=== PATIENT | female | born 1955 | race African-American/Black ===

== ENCOUNTER 2020-04-30 14:49 | Outpatient (REF) | payer OTHER, SELFPAY ==
--- NOTE | 2020-04-30 15:02 | XR_ITS ---
EXAMINATION: XR KNEE, LEFT CLINICAL INFORMATION: Pain in left knee COMPARISON: None TECHNIQUE: Four views of the left knee. FINDINGS: There is chondrocalcinosis of the medial and lateral meniscus. No bone erosions. Mild joint narrowing of the medial femoral tibial joint. There are no bone spurs. There is no joint effusion. XR/XR knee LT 4V IMPRESSION: Chondrocalcinosis of the medial and lateral meniscus. Mild joint narrowing of the medial femoral tibial joint.
--- NOTE | 2020-04-30 15:11 | US_ITS ---
EXAMINATION: US VENOUS ULTRASOUND WITH DOPPLER LOWER EXTREMITY, LEFT CLINICAL INFORMATION: Pain in lower left leg COMPARISON: None TECHNIQUE: Ultrasound of the deep veins is performed from the hip to the calf with compression sonography and color and pulse Doppler assessment. Spectral analysis with color-flow imaging is performed. FINDINGS: There is normal venous compression and respiratory variation and augmented flow. The visualized common femoral vein, superficial femoral vein, profunda femoral vein, popliteal vein, and the trifurcation region shows no evidence of deep venous thrombosis. There is a popliteal cyst measuring 5.8 x 2.1 x 3.8 cm. If the patient's symptoms persist, followup ultrasound in 5 days 7 days might be of value to exclude proximal propagation from a non-visualized calf vein. US/US venous duplex LE IMPRESSION: 1. No DVT demonstrated in the left lower extremity. 2. Popliteal fossa cyst.
== END 2020-04-30 14:50 | disposition home or self-care (01) ==
LOC: HO.HMGCX 14:49
PROVIDERS: PCP Internal Medicine; Visit Provider Nurse Practitioner Family
DX: M25.562 Pain in left knee (principal)
CPT/HCPCS: 73564; 93971

== ENCOUNTER → 2020-05-13 12:32 | Outpatient (BNVA) | payer OTHER, SELFPAY | PROVIDERS: PCP Internal Medicine; Referring Provider Internal Medicine; Visit Provider Orthopaedic Surgery | DX: M11.262 Other chondrocalcinosis, left knee (principal) | CPT/HCPCS: 99202 ==

== ENCOUNTER 2020-07-21 10:03 | Outpatient (REF) | payer OTHER, SELFPAY ==
--- NOTE | 2020-07-21 10:09 | XR_ITS ---
EXAMINATION: CR X-RAY FOOT AND ANKLE 3 VIEW RIGHT CLINICAL INFORMATION: Right foot and ankle pain status post injury. COMPARISON: None TECHNIQUE: 3 views each of the right foot and ankle were obtained. FINDINGS: There is no acute fracture or dislocation. Mild first metatarsophalangeal joint space narrowing is seen. The tarsal bones are normally aligned. The ankle joint and mortise are intact. There is generalized mild soft tissue swelling. XR/XR ankle RT 2V IMPRESSION: Generalized mild soft tissue swelling and mild first metatarsophalangeal degenerative joint space narrowing without acute abnormality.
--- NOTE | 2020-07-21 10:09 | XR_ITS ---
EXAMINATION: CR X-RAY FOOT AND ANKLE 3 VIEW RIGHT CLINICAL INFORMATION: Right foot and ankle pain status post injury. COMPARISON: None TECHNIQUE: 3 views each of the right foot and ankle were obtained. FINDINGS: There is no acute fracture or dislocation. Mild first metatarsophalangeal joint space narrowing is seen. The tarsal bones are normally aligned. The ankle joint and mortise are intact. There is generalized mild soft tissue swelling. XR/XR foot RT min 3V IMPRESSION: Generalized mild soft tissue swelling and mild first metatarsophalangeal degenerative joint space narrowing without acute abnormality.
== END 2020-07-21 10:04 | disposition home or self-care (01) ==
LOC: HO.HMGCX 10:03
PROVIDERS: PCP Internal Medicine; Visit Provider Nurse Practitioner Family
DX: S99.911A Unspecified injury of right ankle, initial encounter (principal); S99.921A Unspecified injury of right foot, initial encounter; X58.XXXA Exposure to other specified factors, initial encounter; Y93.9 Activity, unspecified; Y92.9 Unspecified place or not applicable; Y99.9 Unspecified external cause status
CPT/HCPCS: 73600; 73630

== ENCOUNTER 2020-09-26 12:29 | Outpatient (REF) | payer MEDICARE, SELFPAY ==
[2020-09-27 04:18] LABS: SARS COV2 PCR INHOUSE NEGATIVE (Negative)
== END 2020-09-26 12:30 | disposition home or self-care (01) ==
LOC: HO.LAB 12:29
PROVIDERS: Visit Provider Internal Medicine
DX: Z20.822 Contact with and (suspected) exposure to COVID-19 (principal)
CPT/HCPCS: C9803; U0003

== ENCOUNTER 2023-07-06 09:30 | Outpatient (AMB) | payer MEDICARE, SELFPAY ==
--- OUTSIDE RECORDS SUMMARY | 2023-07-06 09:32 | XMS_ITS | Continuity of Care Document ---
Author Name Unknown Organization [facility] As formerly [facility] Address [address] [place] [address] [address] [place] [address]- Care Team Providers Care Sales Merchandise Associate Name Role Phone WilfredoelianeKarma Sun DO Primary Care Nicole valentine Encounter [facility] Date(s): 02/21/23 - 03/23/[address] [place] [address]- Attending Physician: Humphrey Tapia Admitting Physician: AdmtrHumphrey Referring Physician: Admtr, ArDarien Allergies, Adverse Reactions, Alerts Substance Reaction Severity Status codeine vomiting Active Contrast Dye 1 rash Active 1Patient reports with Benadryl administration she can have contrast dye. Immunizations Given and Recorded Vaccine Date Status Refusal Reason influenza virus vaccine, inactivated 04/18/22 Kenny rded influenza virus vaccine, inactivated 03/23/18 Kenny rded influenza virus vaccine, inactivated 04/27/17 Kenny rded influenza virus vaccine, inactivated 04/02/16 Kenny rded influenza virus vaccine, inactivated 03/24/15 Kenny rded influenza virus vaccine, inactivated 04/19/14 Kenny rded [id number] 12y+ bivalent booster vax 04/18/22 Recorded SARS-CoV-2 (COVID-19) mRNA BNT-162b2 vac 06/25/21 Recorded SARS-CoV-2 (COVID-19) mRNA BNT-162b2 vac 11/07/20 Given SARS-CoV-2 (COVID-19) mRNA BNT-162b2 vac 10/17/20 Given zoster vaccine, inactivated 02/07/18 Recorded pneumococcal 13-valent vaccine 04/02/16 Recorded pneumococcal 23-valent vaccine 03/24/15 Recorded Zoster Vaccine Live 04/19/14 Recorded Medications acetaminophen 325 mg oral tablet 975 mg, By Mouth, Every 6 hours, PRN, Refills 0, Maintenance, Pain , Mild, 07/28/22 11:13:00 EST Start Date: 07/28/22 Status: Ordered amLODIPine 10 mg oral tablet 1 tablet = 10 mg, By Mouth, Daily, # 30 tablet, 0 Refills, Maintenance, 07/29/22 18:54:00 EST, Tablet, Partial fill upon patient request if the prescription is for a schedule II opioid drug. Start Date: 07/29/22 Status: Ordered Coloplast bags #04046 Coloplast bags #[id number], See Instructions, # 20 each, Refills 11, Tot. Refills 11, Maintenance, Use as needed for ostomy maintenance. Dx ileostomy Z93.2, 08/23/22 14:43:00 EST, Supply Start Date: 08/23/22 Status: Ordered gabapentin 300 mg oral capsule 300 mg, 1, capsule, By Mouth, Daily at bedtime, Refills 0, Maintenance, 07/20/22 8:52:00 EST, Partial fill upon patient request if the prescription is for a schedule II opioid drug. Start Date: 07/20/22 Status: Ordered Incruse Ellipta 62.5 mcg/inh inhalation powder Inhalation, Every 24 hours, 0 Refills, Maintenance, 06/08/22 13:06:00 EST, Partial fill upon patient request if the prescription is for a schedule II opioid drug. Start Date: 06/08/22 Status: Ordered levothyroxine 0.1 mg oral tablet 1 tablet = 100 mcg, By Mouth, Daily, 0 Refills, Maintenance, 02/24/18 11:52:41 EDT Start Date: 02/24/18 Status: Ordered lisinopril 20 mg oral tablet 20 mg, 1, tablet, By Mouth, Daily, # 30 tablet, Refills 0, Maintenance, 07/29/22 18:55:00 EST Start Date: 07/29/22 Status: Ordered Loperamide 2 mg, By Mouth, 4 times a day, PRN, Refills 0, Maintenance, as needed for loose stool, 02/24/18 11:55:27 EDT Start Date: 02/24/18 Status: Ordered Metoprolol Tartrate 25 mg oral tablet 1 tablet = 25 mg, By Mouth, Daily, # 60 tablet, 0 Refills, Maintenance, 07/29/22 18:54:00 EST, Tablet Start Date: 07/29/22 Status: Ordered omeprazole 40 mg oral enteric coated capsule 1 capsule = 40 mg, By Mouth, Daily, # 30 capsule, 0 Refills, Maintenance, 07/29/22 18:55:00 EST, ECCapsule, Partial fill upon patient request if the prescription is for a schedule II opioid drug. Start Date: 07/29/22 Status: Ordered Oxygen 2 liters, Daily at bedtime, 0 Refills, Maintenance Start Date: 07/31/10 Status: Ordered PARoxetine 10 mg oral tablet 10 mg, 1, tablet, By Mouth, Daily, for total of 50 mg daily, # 30 tablet, Refills 0, Maintenance, 07/29/22 18:53:00 EST Start Date: 07/29/22 Status: Ordered PARoxetine 40 mg oral tablet 40 mg, 1, tablet, By Mouth, Daily, for total of 50 mg daily, # 30 tablet, Refills 0, Maintenance, 07/29/22 18:52:00 EST Start Date: 07/29/22 Status: Ordered ProAir HFA 90 mcg/inh inhalation aerosol 2 puffs, Inhalation, 4 times a day, PRN as needed for wheezing, # 6.7 Gm, 0 Refills, Maintenance, 04/28/20 11:08:00 EST, Aerosol Start Date: 04/28/20 Status: Ordered simvastatin 20 mg oral tablet 20 mg, 1, tablet, By Mouth, Daily at bedtime, # 30 tablet, Refills 0, Maintenance, 07/29/22 19:28:00 EST, Partial fill upon patient request if the prescription is for a schedule II opioid drug. Start Date: 07/29/22 Status: Ordered Tums 500 mg oral tablet, chewable 1,000 mg, 2, tablet, Chew, 3 times a day, PRN, Refills 0, Maintenance, Dyspepsia, 01/22/23 9:15:00 EDT, Partial fill upon patient request if the prescription is for a schedule II opioid drug. Start Date: 01/22/23 Status: Ordered Vitamin D3 1000 intl units oral capsule By Mouth, Daily, 0 Refills, Maintenance Start Date: 07/31/10 Status: Ordered Wixela Inhub 100 mcg-50 mcg inhalation powder 1 inhalation, Inhalation, 2 times a day, rinse mouth and throat after use, 0 Refills, Maintenance, 04/28/20 11:10:00 EST, Powder Start Date: 04/28/20 Status: Ordered Problem List Condition Confirmation Course Effective Dates Status H ealth Status Informant Asthma with COPD Confirmed Active COVID-19 Confirmed Active Current smoker Confirmed Active Depression Confirmed Active FH: Ischemic heart disease Confirmed Active Hemorrhoids Confirmed Active HLD (hyperlipidemia) Confirmed Active HTN (hypertension) Confirmed Active Hypothyroidism Confirmed Active Obese class I Confirmed Active Rectal perforation Confirmed Active Failed back syndrome Confirmed Active Rectal prolapse Confirmed Active Social History Social History Type Response Tobacco Other: Quit 6 months ago. Smoked for 50+ yrs.. Sex Radiology * Event Display: Bone Density, Non- Authored Date: Patient Care team information Care Team Personnel Name: Geetha Jurado RN Position: S RN Member Role: Primary Care Nurse Name: Bruna Joseph RN Position: S RN Member Role: Primary Care Nurse Name: Kristin Sands RN Position: S RN Member Role: Primary Care Nurse Name: Karma High DO Position: [facility] Physician - Primary Care Member Role: PCP Address: Address: [address] [place] [address] Name: Cady Dove RN Position: S RN Member Role: Primary Care Nurse Name: Elena Savage RN Position: [facility] RN Member Role: Primary Care Nurse Name: Lyela Chua RN Position: [facility] RN Member Role: Primary Care Nurse Name: Naya Ocampo RN Position: S RN Member Role: Primary Care Nurse Care Team Related Persons Name: ABE CAST Address: [address] [address] Name: SAUMYA MAX Address: [place] [address]
--- OUTSIDE RECORDS SUMMARY | 2023-07-06 09:32 | XMS_ITS | Continuity of Care Document ---
Author Name Unknown Organization [facility] As [facility] Address [address] [place] [address] [address] [place] [address]- Care Team Providers Care Staff Registered Nurse Name Role Phone Karma High DO Primary Care Nicole valentine Encounter [facility] Date(s): 02/21/23 - 02/28/23 [facility] [address] [place] [address]- Encounter Diagnosis Rectal perforation(Discharge Diagnosis) - 02/21/23 Asthma with COPD(Discharge Diagnosis) - 02/21/23 Attending Physician: Shiva PONCE, Rex Castellon Referring Physician: Karma High DO Allergies, Adverse Reactions, Alerts Substance Reaction Severity [...] influenza virus vaccine, inactivated 04/19/14 Kenny rded [id number] 12y+ bivalent booster vax 04/18/22 Recorded SARS-CoV-2 (COVID-19) mRNA BNT-162b2 vac 06/25/21 Recorded SARS-CoV-2 (COVID-19) mRNA BNT-162b2 vac 11/07/20 Given SARS-CoV-2 (COVID-19) mRNA BNT-162b2 vac 10/17/20 Given zoster vaccine, inactivated 02/07/18 Recorded pneumococcal 13-valent vaccine 04/02/16 Recorded pneumococcal 23-valent vaccine 03/24/15 Recorded Zoster Vaccine Live 10/24/14 Recorded Medications acetaminophen 325 mg oral tablet [...] Start Date: 07/29/22 Status: Ordered Coloplast bags #[id number] Coloplast bags #90690, See Instructions, # 20 each, Refills 11, Tot. Refills 11, Maintenance, Use as needed for ostomy maintenance. Dx ileostomy Z93.2, 08/23/22 14:43:00 EST, Supply Start Date: 08/23/22 Status: Ordered [employer] oral capsule 1 capsule, By Mouth, Daily, for 30 days, # 30 capsule, 0 Refills, Acute 03/17/23 13:03:00 EDT, 02/15/23 13:03:00 EDT, [id number], Partial fill upon patient request if the prescription is for a schedule II opioid drug., 1 capsule By Mo... Start Date: 02/15/23 Stop Date: 03/17/23 Status: Ordered gabapentin 300 mg oral capsule [...] syndrome Confirmed Active Rectal prolapse Confirmed Active Diagnosis Diagnosis Type Effective Dates Health Status Clinical Service Informant Rectal perforation Discharge Diagnosis 02/21/23 Asthma with COPD Discharge Diagnosis 02/21/23 Vital Signs Most recent to oldest [Reference Range]: 1 Height 160 cm (02/21/23 11:45 AM) Weight 77.4 kg (02/21/23 11:45 AM) Pulse Rate [55-90 bpm] 84 bpm (02/21/23 11:45 AM) Body Mass Index [18.5-24.99 kg/m2] 30.23 kg/m2 *>HHI* (02/21/23 11:45 AM) Blood Pressure [90-138/55-84 mm Hg] 110/ 68mm Hg (02/21/23 11:45 AM) Temperature [96.8-100.4 DegF] 97.0 DegF (02/21/23 11:45 AM) Blood pressure sites Arm, right (02/21/23 11:45 AM) Temperature Route Temporal (02/21/23 11:45 AM) Social History Social History Type Response Tobacco Other: Quit 6 months ago. Smoked for 50+ yrs.. Sex Patient Care team information Care Team Personnel Name: Geetha Jurado RN Position: [facility] RN Member Role: Primary Care Nurse Name: Bruna Joseph RN Position: S RN Member Role: Primary Care Nurse Name: Kristin Sands RN Position: S RN Member Role: Primary Care Nurse Name: Karma High DO Position: [facility] Physician - Primary Care Member Role: PCP Address: Address: [address] [place] [address] Name: Cady Dove RN Position: [facility] RN Member Role: Primary Care Nurse Name: Elena Savage RN Position: [facility] RN Member Role: Primary Care Nurse Name: Leyla Chua RN Position: [facility] RN Member Role: Primary Care Nurse Name: Naya Ocampo RN Position: [facility] RN Member Role: Primary Care Nurse Care Team Related Persons Name: ABE CAST Address: [address] [address] Name: SAUMYA MAX Address: [place] [address]
--- OUTSIDE RECORDS SUMMARY | 2023-07-06 09:32 | XMS_ITS | Continuity of Care Document ---
Author Name Unknown Organization [facility] Surgical As formerly [facility] Address [address] [place] [address] [address] [place] [address]- Care Team Providers Care Instructor Of Spanish Name Role Phone WilfredofinaKarma Grant DO Primary Care Nicole valentine Encounter [facility] Date(s): 01/05/23 - 02/04/23 [facility] [address] [place], [place] [address] Allergies, Adverse Reactions, Alerts Substance Reaction Severity [...] influenza virus vaccine, inactivated 04/19/14 Kenny rded [id number] 12y+ bivalent booster vax 04/18/22 Recorded SARS-CoV-2 [...] Start Date: 07/29/22 Status: Ordered Coloplast bags #91508 Coloplast bags #35379, See Instructions, # 20 each, Refills 11, [...] HTN (hypertension) Confirmed Active Hypothyroidism Confirmed Active Rectal perforation Confirmed Active Failed [...] Care Nurse Name: Karma High DO Position: [facility] Physician - Primary Care Member Role: PCP Address: Address: [address] [place] [address] Name: Cady Dove RN Position: S RN Member Role: Primary Care Nurse Name: Elena Savaeg RN Position: S RN Member Role: Primary Care Nurse Name: Leyla Chua RN Position: S RN Member Role: Primary Care Nurse Name: Naya Ocampo RN Position: S RN Member Role: Primary Care Nurse Care Team Related Persons Name: ABE CAST Address: [address] [address] Name: SAUMYA MAX Address: [place] [address]
--- OUTSIDE RECORDS SUMMARY | 2023-07-06 09:32 | XMS_ITS | Continuity of Care Document ---
Author Name Unknown Organization [facility] Address [address] [place] [address] [address] [place] [address]- Care Team Providers Care Merchandise Displayer Name Role Phone Karma High DO Primary Care Nicole valentine Encounter [facility] Date(s): 12/06/22 - 12/13/[address] [place] [address]- Encounter Diagnosis Rectal prolapse(Discharge Diagnosis) - 12/06/22 Rectal perforation(Discharge Diagnosis) - 12/06/22 Asthma with COPD(Discharge Diagnosis) - 12/06/22 Attending Physician: Rex Shannon MD Referring Physician: Karma High DO Allergies, Adverse Reactions, Alerts Substance Reaction Severity Status codeine vomiting Active Contrast Dye rash Active Immunizations Given and Recorded Vaccine Date Status Refusal Reason influenza virus vaccine, inactivated 04/18/22 Kenny rded influenza virus vaccine, inactivated 03/23/18 Kenny rded influenza virus vaccine, inactivated 04/27/17 Kenny rded influenza virus vaccine, inactivated 04/02/16 Kenny rded influenza virus vaccine, inactivated 03/24/15 Kenny rded influenza virus vaccine, inactivated 04/19/14 Kenny rded [id number] 12y+ bivalent booster vax 04/18/22 Recorded SARS-CoV-2 [...] Start Date: 07/29/22 Status: Ordered Coloplast bags #55849 Coloplast bags #[id number], See Instructions, # 20 each, Refills 11, [...] 11:55:27 EDT Start Date: 02/24/18 Status: Ordered loperamide 2 mg oral tablet See Instructions, take 2 tablets by mouth 30 minutes before meals and at bedtime, # 240 tablet, 4 Refills, Maintenance, 11/15/22 7:44:00 EDT, Tablet, [id number], Partial fill upon patient request if the prescription is for a schedule... Start Date: 11/15/22 Status: Ordered Metoprolol Tartrate 25 mg oral tablet 1 tablet = 25 mg, By Mouth, Daily, # 60 tablet, 0 Refills, Maintenance, 07/29/22 18:54:00 EST, Tablet Start Date: 07/29/22 Status: Ordered naproxen 500 mg oral delayed release tablet 1 tablet = 500 mg, By Mouth, 2 times a day, PRN Pain , Moderate, # 180 tablet, 0 Refills, Maintenance, 07/29/22 18:53:00 EST, EC Tablet Start Date: 07/29/22 Status: Ordered Nicotine 7 mg/24 hour patch 1 patch, Topically, Daily, # 30 patch, 0 Refills, Maintenance, 07/28/22 13:18:00 EST, Patch, [facility] 3, Partial fill upon patient request if the prescription is for a schedule II opioid drug., 1 patch Topically Daily, 160, cm, 07/27/22... Start Date: 07/28/22 Status: Ordered omeprazole 40 mg oral enteric [...] 18:52:00 EST Start Date: 07/29/22 Status: Ordered predniSONE 10 mg oral tablet See Instructions, Take 4 tablets for 2 days then 3 tablets for 2 days then 2 tablet for 2 days then1 tablet for 2 days then stop, # 20 capsule, 0 Refills, Maintenance, 08/04/22 7:21:00 EST, [facility], Partial fill upon patient request... Start Date: 08/04/22 Status: Ordered ProAir HFA 90 mcg/inh inhalation [...] opioid drug. Start Date: 07/29/22 Status: Ordered traMADol 50 mg oral tablet 1 tablet = 50 mg, By Mouth, Every 4 hours, PRN Pain , Moderate, # 12 tablet, 0 Refills, Maintenance, 07/28/22 13:17:00 EST, Tablet, [facility], Partial fill upon patient request if the prescription is for a schedule II opioid drug., 160,... Start Date: 07/28/22 Status: Ordered Vitamin D3 1000 intl units [...] Dates Health Status Clinical Service Informant Rectal prolapse Discharge Diagnosis 12/06/22 Rectal perforation Discharge Diagnosis 12/06/22 Asthma with COPD Discharge Diagnosis 6/12/23 Vital Signs Most recent to oldest [Reference Range]: 1 Height 160 cm (12/06/22 9:37 AM) Weight 72.9 kg (12/06/22 9:37 AM) Pulse Rate [55-90 bpm] 84 bpm (12/06/22 9:37 AM) Body Mass Index [18.5-24.99 kg/m2] 28.48 kg/m2 *H* (12/06/22 9:37 AM) Blood Pressure [90-138/55-84 mm Hg] 130/ 76mm Hg (12/06/22 9:37 AM) Temperature [96.8-100.4 DegF] 96.8 DegF (12/06/22 9:37 AM) Blood pressure sites Arm, right (12/06/22 9:37 AM) Temperature Route Temporal (12/06/22 9:37 AM) Social History Social History Type Response Smoking Status 10 or more cigarette s (1/2 pack or more)/day in last 30 days entered on: 07/20/22 Sex Note * Saundra Christie MAree: PERFORM, SIGN, VERIFY Event Display: Patient Education/Instruction Authored Date: [id number] [facility] *BSA Gen Surg Clinical Summary Name TRENT PERDUE Age 67 Years 1955 PCP Karma High DO PCP Visit Date 12/06/2022 08:53:00 Additional Instructions: Scheduled Appointments?? Future Appointments ?No Future Appointments Scheduled Follow-Up Instructions ?? Diagnosis Chronic obstructive pulmonary disease, unspecified; Rectal prolapse; Perforation of intestine (nontraumatic) Medications: Please continue your medications until treatment is completed or stopped by your provider. Discuss any questions related to medications with your provider. Medications to Continue with No Changes These medications were not printed or sent to your pharmacy Acetaminophen (acetaminophen 325 mg oral tablet) 975 Milligram Oral every 6 hours as needed Pain , Mild. Next Dose: Albuterol (ProAir HFA 90 mcg/inh inhalation aerosol) 2 puff(s) Inhalation 4 times a day as needed as needed for wheezing. Next Dose: Amlodipine (amLODIPine 10 mg oral tablet) 1 tab(s) Oral Daily. Next Dose: Cholecalciferol (Vitamin D3 1000 intl units oral capsule) Oral Daily. Next Dose: Durable Medical Equipment (Coloplast bags #77735) Use as needed for ostomy maintenance. Dx ileostomy Z93.2. Refills: 11. Next Dose: Fluticasone-Salmeterol (Wixela Inhub 100 mcg-50 mcg inhalation powder) 1 inhalation Inhalation twice a day. rinse mouth and throat after use. Next Dose: Gabapentin (gabapentin 300 mg oral capsule) 1 capsule Oral Daily at Bedtime. Next Dose: Levothyroxine (levothyroxine 0.1 mg oral tablet) 1 tab(s) Oral Daily. Next Dose: Lisinopril (lisinopril 20 mg oral tablet) 1 tab(s) Oral Daily. Next Dose: Loperamide 2 Milligram Oral 4 times a day as needed as needed for loose stool. Next Dose: Loperamide (loperamide 2 mg oral tablet) take 2 tablets by mouth 30 minutes before meals and at bedtime. Refills: 4. Next Dose: Metoprolol (Metoprolol Tartrate 25 mg oral tablet) 1 tab(s) Oral Daily. Next Dose: Naproxen (naproxen 500 mg oral delayed release tablet) 1 tab(s) Oral twice a day as needed Pain , Moderate. Next Dose: Nicotine (Nicotine 7 mg/24 hour patch) 1 patch(es) Topically Daily. Refills: 0. Next Dose: Omeprazole (omeprazole 40 mg oral enteric coated capsule) 1 capsule Oral Daily. Next Dose: Oxygen 2 liters Daily at Bedtime. Next Dose: Paroxetine (PARoxetine 10 mg oral tablet) 1 tab(s) Oral Daily. for total of 50 mg daily. Next Dose: Paroxetine (PARoxetine 40 mg oral tablet) 1 tab(s) Oral Daily. for total of 50 mg daily. Next Dose: PredniSONE (predniSONE 10 mg oral tablet) Take 4 tablets for 2 days then 3 tablets for 2 days then 2 tablet for 2 days then 1 tablet for 2 days then stop. Refills: 0. Next Dose: Simvastatin (simvastatin 20 mg oral tablet) 1 tab(s) Oral Daily at Bedtime. Next Dose: Tramadol (traMADol 50 mg oral tablet) 1 tab(s) Oral every 4 hours as needed Pain , Moderate. Refills: 0. Next Dose: umeclidinium (Incruse Ellipta 62.5 mcg/inh inhalation powder) Inhalation every 24 hours. Next Dose: Allergy Info:?? Contrast Dye; codeine Medications Given This Visit Future Orders ?No future orders Vital Signs Height 160 cm Weight 72.9 kg BMI 28.48 kg/m2 Blood Pressure 130 mm Hg/76 mm Hg Temperature 96.8 DegF Pulse Rate 84 bpm Respiratory Rate 02 Sat Mode of Delivery / You can now view a summary of your hospital visit from the comfort of your home through a free online portal called [email or web address]. [email or web address] is a website that allows you to securely view your medical information including discharge summary, medications and follow-up visits. ??You can alsosend a secure electronic message to your doctor???s office to request appointments, renew medications or just ask a question. You can enroll at [email or web address] or register during your next office visit. Disclaimer:?? The information provided is of a general nature and is intended to be used in conjunction with the recommendations and advice of your health care practitioner. ??Every effort has been made to ensure that the information provided is accurate and complete at the time it is provided to you however, as your needs change, or, as new ??information becomes available, different or additional instructions may be required. If you have questions, please consult with your primary care provider or pharmacist, as appropriate. ??This information is not intended to serve as substitution for assessment and evaluation by a qualified health care provider. If you do not have a primary care provider, you may find a [facility] provider by calling [facility] [address] at [phone]. For information about the plan of care including goals and instructions for your diagnosis, please see the patient education orders section of this document. Patient Education Materials?? The content of this educational material or handout may have been modified, supplemented, or adapted from its original content and format to support your individualized medical care. Patient Care team information Care Team Personnel Name: Geetha Jurado RN Position: [facility] RN Member Role: Primary Care Nurse Name: Kristin Sands RN Position: S RN Member Role: Primary Care Nurse Name: Karma High DO Position: [facility] Physician - Primary Care Member Role: PCP Address: Address: [address] [place] [address]- [place] Name: Leyla Chua RN Position: [facility] RN Member Role: Primary Care Nurse Name: Naya Ocampo RN Position: [facility] RN Member Role: Primary Care Nurse Care Team Related Persons Name: ABE CAST Address: [facility] [address] [place] [address] Name: SAUMYA MAX Address: [place] [address]
--- OUTSIDE RECORDS SUMMARY | 2023-07-06 09:32 | XMS_ITS | Continuity of Care Document ---
Author Name Unknown Organization [facility] Address [address] [place] [address] [address] [place] [address]- Care Team Providers Care Card Cutter Name Role Phone Karma High DO Primary Care Nicole valentine Encounter [facility] Date(s): 08/23/22 - 08/30/[address] [place] [address]- Encounter Diagnosis Rectal prolapse(Discharge Diagnosis) - 08/23/22 Attending Physician: Rex Shannon MD Referring Physician: [...] influenza virus vaccine, inactivated 04/19/14 Kenny rded [id number] 12y+ bivalent booster vax 04/18/22 Recorded SARS-CoV-2 [...] Start Date: 07/29/22 Status: Ordered Coloplast bags #[id number] Coloplast bags #67819, See Instructions, # 20 each, Refills 11, [...] 0 Refills, Maintenance, 07/28/22 13:18:00 EST, Patch, [facility], Partial fill upon patient request if [...] capsule, 0 Refills, Maintenance, 08/04/22 7:21:00 EST, [facility] 3, Partial fill upon patient request... Start [...] 0 Refills, Maintenance, 07/28/22 13:17:00 EST, Tablet, [facility], Partial fill upon patient request [...] Confirmed Active Obese class I Confirmed Active Failed back syndrome Confirmed Active Rectal prolapse Confirmed Active Diagnosis Diagnosis Type Effective Dates Health Status inical Service Informant Rectal prolapse Discharge Diagnosis 08/23/22 Vital Signs Most recent to oldest [Reference Range]: 1 Height 160 cm (08/23/22 10:34 AM) Weight 77.0 kg (08/23/22 10:34 AM) Pulse Rate [55-90 bpm] 92 bpm *H* (08/23/22 10:34 AM) Body Mass Index [18.5-24.99 kg/m2] 30.08 kg/m2 *>HHI* (08/23/22 10:34 AM) Blood Pressure [90-138/55-84 mm Hg] 112/ 66mm Hg (08/23/22 10:34 AM) Temperature [96.8-100.4 DegF] 96.7 DegF *L* (08/23/22 10:34 AM) Blood pressure sites Arm, right (08/23/22 10:34 AM) Temperature Route Temporal (08/23/22 10:34 AM) Social History Social History Type Response Smoking Status 10 or more cigarette s (1/2 pack or more)/day in last 30 days entered on: 07/20/22 Sex Note * Farheen Christie MA: VERIFY, PERFORM, SIGN Event Display: Patient Education/Instruction Authored Date: [id number] [facility] *BSA Gen Surg Clinical Summary Name TRENT PERDUE Age 67 Years 1955 PCP Karma High DO PCP Visit Date 08/23/2022 10:00:00 Additional Instructions: Scheduled Appointments?? Future Appointments ?No Future Appointments Scheduled Follow-Up Instructions ?? Diagnosis Rectal prolapse Medications: Please continue your medications until treatment [...] units oral capsule) Oral Daily. Next Dose: Enoxaparin (enoxaparin 40 mg/0.4 mL injectable solution) 0.4 Milliliter Subcutaneous Injection Daily for 28 Days. Refills: 0. Next Dose: Fluticasone-Salmeterol (Wixela Inhub 100 mcg-50 [...] as needed for loose stool. Next Dose: Metoprolol (Metoprolol Tartrate 25 mg [...] orders Vital Signs Height 160 cm Weight 77.0 kg BMI 30.08 kg/m2 Blood Pressure 112 mm Hg/66 mm Hg Temperature 96.7 DegF Pulse Rate 92 bpm Respiratory Rate 02 Sat Mode of Delivery / You can now view a summary of your hospital visit from the comfort of your home through a free online portal called [employer]. [employer] is a website that allows you to securely view your medical information including discharge summary, medications and follow-up visits. ??You can alsosend a secure electronic message to your doctor???s office to request appointments, renew medications or just ask a question. You can enroll at [email or web address] or register during your next office visit. [...] primary care provider, you may find a [facility] provider by calling [facility] [employer] [facility] at [phone]. For information about the plan of care [...] Team Personnel Name: Geetha Jurado RN Position: [facility] RN Member Role: Primary Care Nurse Name: Meghan Thapa RN Position: [facility] RN Member Role: Primary Care Nurse Name: Kristin Sands RN Position: [facility] RN Member Role: Primary Care Nurse Name: Mariana London RN Position: [facility] RN Member Role: Primary Care Nurse Name: Karma High DO Position: [facility] Physician (General Medicine) Member Role: PCP Address: Address: [address] [place] [address] Name: Leyla Chua RN Position: S RN Member Role: Primary Care Nurse Name: Naya Ocampo RN Position: S RN Member Role: Primary Care Nurse Care Team Related Persons Name: ABE CAST Address: [address] [address] Name: SAUMYA MAX Address: [place] [address]
--- OUTSIDE RECORDS SUMMARY | 2023-07-06 09:32 | XMS_ITS | Continuity of Care Document ---
Author Name Unknown Organization [facility] Address [address] [place] [address]- Care Team Providers Care Tax Advisor Name Role Phone Cameron Dayana CARRILLO Karma Primary Care Nicole valentine Encounter [facility] Date(s): 07/20/22 - 08/19/22 [facility] [address] [place], [place] [address] Attending Physician: Humphrey Tapia Admitting Physician: AdmtrHumphrey Referring Physician: Admtr, Ar8 Allergies, Adverse Reactions, Alerts Substance Reaction Severity [...] influenza virus vaccine, inactivated 04/19/14 Kenny rded [id number] 12y+ bivalent booster vax 04/18/22 Recorded SARS-CoV-2 [...] , Mild, 07/28/22 11:13:00 EST Start Date: 2/1/23 Status: Ordered amLODIPine 10 mg oral tablet 1 tablet = 10 mg, By Mouth, Daily, # 30 tablet, 0 Refills, Maintenance, 07/29/22 18:54:00 EST, Tablet, Partial fill upon patient request if the prescription is for a schedule II opioid drug. Start Date: 07/29/22 Status: Ordered enoxaparin 40 mg/0.4 mL injectable solution 0.4 mL = 40 mg, Subcutaneous Injection, Daily, for 28 days, # 11.2 mL, 0 Refills, Acute 08/25/22 13:19:00 EST, 07/28/22 13:19:00 EST, Injection, [facility], Partial fill upon patient request if the prescription is for a schedule II opioi... Start Date: 07/28/22 Stop Date: 08/25/22 Status: Ordered gabapentin 300 mg oral capsule [...] 0 Refills, Maintenance, 07/28/22 13:18:00 EST, Patch, [facility], Partial fill upon patient [...] capsule, 0 Refills, Maintenance, 08/04/22 7:21:00 EST, [facility], Partial fill upon patient request... Start [...] 0 Refills, Maintenance, 07/28/22 13:17:00 EST, Tablet, [facility], Partial fill upon patient request [...] HTN (hypertension) Confirmed Active Hypothyroidism Confirmed Active Failed back syndrome Confirmed Active Rectal prolapse Confirmed Active Social History Social History Type Response Smoking Status 10 or more cigarette s (1/2 pack or more)/day in last 30 days entered on: 07/20/22 Sex Patient Care team information Care Team Personnel Name: Geetha Jurado RN Position: S RN Member Role: Primary Care Nurse Name: Meghan Thapa RN Position: S RN Member Role: Primary Care Nurse Name: Kristin Sands RN Position: S RN Member Role: Primary Care Nurse Name: Mariana London RN Position: S RN Member Role: Primary Care Nurse Name: Karma High DO Position: [facility] Physician (General Medicine) Member Role: PCP Address: Address: [address] [place] [id number] Name: Leyla Chua RN Position: S RN Member Role: Primary Care Nurse Name: Naya Ocampo RN Position: [facility] RN Member Role: Primary Care Nurse Care Team Related Persons Name: ABE CAST Address: [address] [address] Name: SAUMYA MAX Address: [place] [address]
--- OUTSIDE RECORDS SUMMARY | 2023-07-06 09:32 | XMS_ITS | Continuity of Care Document ---
Author Name Unknown Organization [facility] Address [address] [place] [address] [address], [address] [place] [address]- Care Team Providers Care Store Manager Name Role Phone Israel Panda MD Primary Care Physician [phone] [place] [facility] [place]s): 04/02/20 - 05/02/20 [facility] [address] [place] [address] Drive, [address] [place], [place] [address] Allergies, Adverse Reactions, Alerts Substance Reaction Severity Status codeine vomiting Active Contrast Dye rash Active Medications Advair Diskus 250 mcg-50 mcg inhalation powder 1, puffs, Inhalation, 2 times a day, 0, 0, 07/03/08 13:56:43, Print ANTIONE Number, [id number], Constant Indicator Start Date: 07/03/08 Status: Ordered Albuterol 2.5, mg, Neb, Every 4 hours, Scheduled / PRN, 0, 0, 07/03/08 14:02:09, as needed for wheezing, Print ANTIONE Number, 51 Start Date: 07/03/08 Status: Ordered Amlodipine = 10 mg, By Mouth, Daily, 0 Refills, Maintenance, 02/24/18 11:49:59 EDT Start Date: 02/24/18 Status: Ordered aspirin 81 mg oral delayed release tablet 81 mg, 1, tablet, By Mouth, Daily, # 30 tablet, Refills 0, Maintenance, 04/28/20 11:08:00 EST Start Date: 04/28/20 Status: Ordered aspirin 81 mg oral tablet 1 tablet = 81 mg, By Mouth, Daily, 0 Refills, Maintenance Start Date: 08/11/11 Status: Ordered Carafate 1 gm oral tablet 1 Gm, 1, tablet, By Mouth, 4 times a day, Refills 0, Maintenance, 02/24/18 11:37:05 EDT Start Date: 02/24/18 Status: Ordered dicyclomine 10 mg oral capsule 1 capsule = 10 mg, By Mouth, 3 times a day, 0 Refills, Maintenance, 02/24/18 11:35:56 EDT Start Date: 02/24/18 Status: Ordered EpiPen 2-Tanner = 0.3 mg, Intramuscular, Once, PRN Other, 0 Refills, Maintenance Start Date: 06/19/13 Status: Ordered fenofibrate 145 mg oral tablet 1 tablet = 145 mg, By Mouth, Daily at bedtime, 0 Refills, Maintenance, 02/24/18 11:57:22 EDT Start Date: 02/24/18 Status: Ordered fluticasone 50 mcg/inh nasal spray 2 sprays, Nares, Both, Daily, 0 Refills, Maintenance, 02/24/18 12:02:51 EDT Start Date: 02/24/18 Status: Ordered gabapentin 100 mg oral capsule 200 mg, 2, capsule, By Mouth, 2 times a day, # 120 capsule, Refills 0, Maintenance, 04/28/20 11:05:00 EST Start Date: 04/28/20 Status: Ordered Incruse Ellipta 62.5 mcg/inh inhalation powder 1 each, Inhalation, Every 24 hours, doses should be taken at least 24 hours apart, # 30 each, 0 Refills, Maintenance, 04/28/20 11:07:00 EST, Powder Start Date: 04/28/20 Status: Ordered levothyroxine 0.1 mg oral tablet 1 tablet = 100 mcg, By Mouth, Daily, 0 Refills, Maintenance, 02/24/18 11:52:41 EDT Start Date: 02/24/18 Status: Ordered Lisinopril = 20 mg, By Mouth, Daily at bedtime, 0 Refills, Maintenance, 02/24/18 11:56:33 EDT Start Date: 02/24/18 Status: Ordered Loperamide 2 mg, By Mouth, Daily, Refills 0, Maintenance, 02/24/18 11:55:27 EDT Start Date: 02/24/18 Status: Ordered metoprolol 50 mg oral tablet 50 mg, 1, tablet, By Mouth, Daily, Refills 0, Maintenance, 02/24/18 11:50:52 EDT Start Date: 02/24/18 Status: Ordered Omeprazole = 40 mg, By Mouth, Daily, 0 Refills, Maintenance, 02/24/18 11:51:30 EDT Start Date: 02/24/18 Status: Ordered Oxygen 2 liters, Daily at bedtime, 0 Refills, Maintenance Start Date: 07/31/10 Status: Ordered Paroxetine = 40 mg, By Mouth, Daily at bedtime, 0 Refills, Maintenance, 02/24/18 11:53:34 EDT Start Date: 02/24/18 Status: Ordered ProAir HFA 90 mcg/inh inhalation aerosol 1 puffs, Inhalation, 4 times a day, PRN as needed for wheezing, # 6.7 Gm, 0 Refills, Maintenance, 04/28/20 11:08:00 EST, Aerosol Start Date: 04/28/20 Status: Ordered ProAir HFA 90 mcg/inh inhalation aerosol with adapter 2, puffs, Inhalation, Every 4 hours, PRN, # 8.5 Gm, Refills 0, Maintenance, 02/24/18 12:00:30 EDT, Aerosol Start Date: 02/24/18 Status: Ordered Ranitidine = 150 mg, By Mouth, 2 times a day, 0 Refills, Maintenance, 02/24/18 11:51:56 EDT Start Date: 02/24/18 Status: Ordered Simvastatin = 20 mg, By Mouth, Daily at bedtime, 0 Refills, Maintenance, 02/24/18 11:55:59 EDT Start Date: 02/24/18 Status: Ordered Spiriva 2 puffs, Inhalation, Daily, 0 Refills, 07/03/08 13:57:05 EST Start Date: 07/03/08 Status: Ordered Vitamin D3 1000 intl units oral capsule By Mouth, Daily, 0 Refills, Maintenance Start Date: 07/31/10 Status: Ordered Vivelle 0.1 mg Patch Topically, Tuesday, Maintenance, 06/19/13 9:35:11 EST Start Date: 06/19/13 Status: Ordered Wixela Inhub 100 mcg-50 mcg inhalation powder 1 inhalation, Inhalation, 2 times a day, rinse mouth and throat after use, 0 Refills, Maintenance, 04/28/20 11:10:00 EST, Powder Start Date: 04/28/20 Status: Ordered Problem List Condition Effective Dates Status Health Status Inform ant COPD - Chronic obstructive p ulmonary disease(Confirmed) 1 Active Current smoker(Confirmed) Active FH: Ischemic heart disease(Confirmed) Active 1oxygen x 8 hrs at night for HS wheezing Social History Social History Type Response Smoking Status Current every day alli sparrow entered on: 10/22/17 Sex
--- OUTSIDE RECORDS SUMMARY | 2023-07-06 09:32 | XMS_ITS | Continuity of Care Document ---
Author Name Unknown Organization [facility] As [facility] Address [address] [place] [address] [address] [place] [address]- Care Team Providers Care Security Patrol Driver Name Role Phone Karma High DO Primary Care Nicole valentine Encounter [facility] [place] Date(s): 06/08/22 - 06/15/[address] [place] [address]- Encounter Diagnosis Hemorrhoids(Discharge Diagnosis) - 06/08/22 Attending Physician: Nely MEANS, Loida Monroe Referring Physician: Karma High DO Allergies, Adverse Reactions, Alerts Substance Reaction Severity Status codeine vomiting Active Contrast Dye rash Active Immunizations Given and Recorded Vaccine Date Status Refusal Reason SARS-CoV-2 (COVID-19) mRNA BNT-162b2 vac 11/07/20 Given SARS-CoV-2 (COVID-19) mRNA BNT-162b2 vac 10/17/20 Given Medications Advair Diskus 250 mcg-50 mcg inhalation powder 1, puffs, Inhalation, 2 times a day, 0, 0, 07/03/08 13:56:43, Print ANTIONE Number, [id number], Constant Indicator Start Date: 07/03/08 Status: Ordered [...] 11:08:00 EST Start Date: 04/28/20 Status: Ordered dicyclomine 10 mg oral capsule [...] opioid drug. Start Date: 06/08/22 Status: Ordered Incruse Ellipta 62.5 mcg/inh inhalation powder 1 each, Inhalation, Every 24 hours, doses should be taken at least 24 hours apart, # 30 each, 0 Refills, Maintenance, 04/28/20 11:07:00 EST, Powder Start Date: 04/28/20 Status: Ordered levothyroxine 0.1 mg oral tablet 1 tablet = 100 mcg, By Mouth, Daily, 0 Refills, Maintenance, 02/24/18 11:52:41 EDT Start Date: 02/24/18 Status: Ordered lidocaine 5% topical cream 1 application, Topically, 3 times a day, as needed for pain, # 15 Gm, 1 Refills, Acute 06/22/22 13:54:00 EST, 06/08/22 13:54:00 EST, Cream, [id number], Partial fill upon patient request if the prescription is for a schedule II opioid... Start Date: 06/08/22 Stop Date: 06/22/22 Status: Ordered Lisinopril = 20 mg, By [...] Maintenance Start Date: 07/31/10 Status: Ordered Paroxetine By Mouth, 0 Refills, Maintenance, 06/08/22 13:05:00 EST, Partial fill upon patient request if the prescription is for a schedule II opioid drug. Start Date: 06/08/22 Status: Ordered Paroxetine = 40 mg, By Mouth, Daily at bedtime, 0 Refills, Maintenance, 02/24/18 11:53:34 EDT Start Date: 02/24/18 Status: Ordered ProAir HFA 90 mcg/inh inhalation aerosol 1 puffs, Inhalation, 4 times a day, PRN as needed for wheezing, # 6.7 Gm, 0 Refills, Maintenance, 04/28/20 11:08:00 EST, Aerosol Start Date: 04/28/20 Status: Ordered Simvastatin = 20 mg, By Mouth, Daily at bedtime, 0 Refills, Maintenance, 02/24/18 11:55:59 EDT Start Date: 02/24/18 Status: Ordered Vitamin D3 1000 intl units oral capsule By Mouth, Daily, 0 Refills, Maintenance Start Date: 07/31/10 Status: Ordered Wixela Inhub 100 mcg-50 mcg inhalation powder 1 inhalation, Inhalation, 2 times a day, rinse mouth and throat after use, 0 Refills, Maintenance, 04/28/20 11:10:00 EST, Powder Start Date: 04/28/20 Status: Ordered Problem List Condition Confirmation Course Effective Dates Status Health St [facility] Informant COPD - Chronic obstructive pulmonary disease 1 Confirmed Active Current smoker Confirmed Active FH: Ischemic heart disease Confirmed Active Hemorrhoids Confirmed Active Obese class I Confirmed Active 1oxygen x 8 hrs at night for HS wheezing Diagnosis Diagnosis Type Effective Dates Health Status [facility] Informant Hemorrhoids Discharge Diagnosis 06/08/22 Vital Signs Most recent to oldest [Reference Range]: 1 Height 163 cm (06/08/22 1:02 PM) Weight 81.2 kg (06/08/22 1:02 PM) Pulse Rate [55-90 bpm] 90 bpm (06/08/22 1:02 PM) Body Mass Index [18.5-24.99 kg/m2] 30.56 kg/m2 *>HHI* (06/08/22 1:02 PM) Blood Pressure [90-138/55-84 mm Hg] 153/ 75mm Hg *H* (06/08/22 1:02 PM) Temperature [96.8-100.4 DegF] 97.8 DegF (06/08/22 1:02 PM) Blood pressure sites Arm, right (06/08/22 1:02 PM) Temperature Route Temporal (06/08/22 1:02 PM) Weight Obtained Via Standing scale (06/08/22 1:02 PM) Social History Social History Type Response Smoking Status Current every day alli kyara entered on: 10/22/17 Sex Patient Care team information Care Team Personnel Name: Meghan Thapa RN Position: [facility] RN Member Role: Primary Care Nurse Name: Karma High DO Position: [facility] Physician (General Medicine) Member Role: PCP Address: Address: [address] [place] [id number]- Care Team Related Persons Name: ABE CAST Address: [address] [place] [address] Name: SAUMYA MAX Address: [place] [address]
--- OUTSIDE RECORDS SUMMARY | 2023-07-06 09:32 | XMS_ITS | Continuity of Care Document ---
Author Name Unknown Organization [facility] Address [address] [place] [address] [address] [place] [address]- Care Team Providers Care Skilled Helper Name Role Phone WilfredofinaKarma Grant DO Primary Care Nicole valentine Encounter [facility] Date(s): 12/31/22 - 01/30/23 [facility] [address] [place], [place] [address] Allergies, Adverse Reactions, Alerts Substance [...] influenza virus vaccine, inactivated 04/19/14 Kenny rded [id number] 12y+ bivalent booster vax 04/18/22 Recorded SARS-CoV-2 [...] Start Date: 07/29/22 Status: Ordered Coloplast bags #[id number] Coloplast bags #15702, See Instructions, # 20 each, Refills 11, [...] Care Nurse Name: Karma High DO Position: [facility] Physician - Primary Care Member Role: PCP Address: Address: [address] [place] [address] Name: Cady Dove RN Position: S RN Member Role: Primary Care Nurse Name: Elena Savage RN Position: S RN Member Role: Primary Care Nurse Name: Leyla Chua RN Position: S RN Member Role: Primary Care Nurse Name: Naya Ocampo RN Position: S RN Member Role: Primary Care Nurse Care Team Related Persons Name: ABE CAST Address: [address] [address] Name: SAUMYA MAX Address: [place] [address]
--- OUTSIDE RECORDS SUMMARY | 2023-07-06 09:32 | XMS_ITS | Continuity of Care Document ---
Author Name Unknown Organization [facility] Address [address] [place] [id number]- Care Team Providers Care Inseam Trimming Machine Operator Name Role Phone Israel Panda MD Primary Care Physician [place] [facility] [place]/24/[place] - 01/24/[address] [address]- Discharge Disposition: A-D/C Walkout Attending Physician: Not on Staff, Attending MD Admitting Physician: Not on Staff, Admitting MD Referring Physician: Not on Staff, Referring MD Allergies, Adverse Reactions, Alerts Substance Reaction Severity Status codeine vomiting Active Contrast Dye rash Active Immunizations Given and Recorded Vaccine Date Status Refusal Reason SARS-CoV-2 (COVID-19) mRNA BNT-162b2 vac 11/07/20 Given SARS-CoV-2 (COVID-19) mRNA BNT-162b2 vac 10/17/20 Given Medications Advair Diskus 250 mcg-50 mcg inhalation powder 1, puffs, Inhalation, 2 times a day, 0, 0, 07/03/08 13:56:43, Print ANTIONE Number, [id number], Constant Indicator Start Date: 07/03/08 Status: Ordered [...] 8 hrs at night for HS wheezing Vital Signs Most recent to oldest [Reference Range]: 1 2 Weight 79 kg (01/24/21 11:34 AM) Oxygen Saturation [94-100 %] 95 % (01/24/21 11:25 AM) 99 % (01/24/21 11:20 AM) Pulse Rate [55-90 bpm] 74 bpm (01/24/21 11:25 AM) 74 bpm (01/24/21 11:20 AM) Blood Pressure [90-138/55-84 mm Hg] 125/ 60mm Hg (01/24/21 11:25 AM) Respiratory Rate [16-30 br/min] 20 br/mi n (01/24/21 11:25 AM) Temperature [96.8-100.4 DegF] 98.3 DegF (01/24/21 11:25 AM) Mode of Delivery (Oxygen) Room air (01/24/21 11:25 AM) Room air (01/24/21 11:20 AM) Blood pressure sites Arm, right (01/24/21 11:25 AM) Temperature Route Oral (01/24/21 11:25 AM) Dry Weight 79 kg (01/24/21 11:34 AM) Social History Social History Type Response Smoking Status Current every day alli sparrow entered on: 10/22/17 Sex
--- OUTSIDE RECORDS SUMMARY | 2023-07-06 09:32 | XMS_ITS | Continuity of Care Document ---
Author Name Unknown Organization [facility] Address [address] [place] [address]- Care Team Providers Care Outpatient Clerk Name Role Phone Israel Panda MD Primary Care Physician [phone] [facility] [place] - 01/04/[address] [address]- [facility] Discharge Disposition: A-D/C Home Attending Physician: Cecille Panda MD Admitting Physician: Cecille Panda MD Referring Physician: Cecille Panda MD Allergies, Adverse Reactions, Alerts Substance Reaction Severity Status codeine vomiting Active Contrast Dye rash Active Medications Advair Diskus 250 mcg-50 mcg inhalation powder 1, puffs, Inhalation, 2 times a day, 0, 0, 07/03/08 13:56:43, Print ANTIONE Number, [id number], Constant Indicator Start Date: 07/03/08 Status: Ordered Albuterol 2.5, mg, Neb, Every 4 hours, Scheduled / PRN, 0, 0, 07/03/08 14:02:09, as needed for wheezing, Print ANTIONE Number, [id number] Start Date: 07/03/08 Status: Ordered Amlodipine = 10 mg, By Mouth, Daily, 0 Refills, Maintenance, 02/24/18 11:49:59 EDT Start Date: 02/24/18 Status: Ordered aspirin 81 mg oral tablet [...] 12:02:51 EDT Start Date: 02/24/18 Status: Ordered levothyroxine 0.1 mg oral tablet [...] 9:35:11 EST Start Date: 06/19/13 Status: Ordered Problem List Condition Effective Dates Status Health Status Inform ant COPD - Chronic obstructive p ulmonary disease(Confirmed) 1 Active Current smoker(Confirmed) Active FH: Ischemic heart disease(Confirmed) Active 1oxygen x 8 hrs at night for HS wheezing Social History Social History Type Response Smoking Status Current every day alli sparrow entered on: 10/22/17 Sex
--- OUTSIDE RECORDS SUMMARY | 2023-07-06 09:32 | XMS_ITS | Continuity of Care Document ---
Author Name Unknown Organization [facility] ter Address [address] [place] [id number]- Care Team Providers Care Sausage Cooker Name Role Phone Cameron Dayana Karma Primary Care Nicole valentine Encounter [facility] Date(s): 01/18/23 - 01/22/[address] [address]- Discharge Disposition: A-D/C Home Attending Physician: Rex Shannon MD Admitting Physician: Rex Shannon MD Referring Physician: Rex Shannon MD Allergies, Adverse Reactions, Alerts Substance Reaction [...] influenza virus vaccine, inactivated 04/19/14 Kenny rded [id number] 12y+ bivalent booster vax 04/18/22 Recorded SARS-CoV-2 [...] 11:13:00 EST Start Date: 07/28/22 Status: Ordered acetaminophen 325 mg oral tablet 975 mg, Tablet, By Mouth, 01/22/23 10:00:00 EDT Start Date: 01/22/23 Stop Date: 01/22/23 Status: Completed amLODIPine 10 mg oral tablet 1 tablet = 10 mg, By Mouth, Daily, # 30 tablet, 0 Refills, Maintenance, 07/29/22 18:54:00 EST, Tablet, Partial fill upon patient request if the prescription is for a schedule II opioid drug. Start Date: 07/29/22 Status: Ordered Coloplast bags #[id number] Coloplast bags #[id number], See Instructions, # 20 each, Refills 11, [...] EDT Start Date: 02/24/18 Status: Ordered metoprolol 25 mg oral tablet 25 mg, Tablet, By Mouth, 01/22/23 9:00:00 EDT Start Date: 01/22/23 Stop Date: 01/22/23 Status: Completed Metoprolol Tartrate 25 mg oral tablet 1 tablet = 25 mg, By Mouth, Daily, # 60 tablet, 0 Refills, Maintenance, 07/29/22 18:54:00 EST, Tablet Start Date: 07/29/22 Status: Ordered nystatin topical 107244 u/gm powder See Instructions, Topically 2 times a day to affected areas (right inguinal crease), # 15 Gm, 0 Refills, Acute 01/30/23 9:14:00 EDT, 01/22/23 9:12:00 EDT, Powder, [facility], Partial fill upon patient request if the prescription is for a... Start Date: 01/22/23 Stop Date: 01/30/23 Status: Ordered omeprazole 40 mg oral enteric [...] Status: Ordered traMADol 50 mg oral tablet = 50 mg, By Mouth, Every 4 hours, PRN Pain , Moderate, # 18 tablet, 0 Refills, Acute 01/27/23 9:18:00 EDT, 01/22/23 9:15:00 EDT, Tablet, [facility], Partial fill upon patient request ifthe prescription is for a schedule II opioid drug.,... Start Date: 01/22/23 Stop Date: 01/27/23 Status: Ordered Tums 500 mg oral tablet, [...] syndrome Confirmed Active Rectal prolapse Confirmed Active Vital Signs Most recent to oldest [Reference Range]: 1 2 3 Height 160 cm (01/21/23 2:57 PM) 160 cm (01/21/23 10:57 AM) 160 cm (01/21/23 7:16 AM) Weight 75 kg (01/18/23 1:02 PM) 75.3 kg (01/18/23 6:15 AM) Oxygen Saturation [94-100 %] 95 % (01/22/23 11:00 AM) 92 % *L* (01/22/23 7:00 AM) 95 % (01/22/23 5:42 AM) Pulse Rate [55-90 bpm] 81 bpm (01/22/23 11:00 AM) 86 bpm (01/22/23 9:09 AM) 86 bpm (01/22/23 7:00 AM) Body Mass Index [18.5-24.99 kg/m2] 29.3 kg/m2 *H* (01/18/23 1:02 PM) 29.41 kg/m2 *H* (01/18/23 6:15 AM) Blood Pressure [90-138/55-84 mm Hg] 124/67mm Hg (01/22/23 11:00 AM) 127/71mm Hg (01/22/23 9:09 AM) 127/71mm Hg (01/22/23 7:00 AM) Respiratory Rate [16-30 br/min] 16 br/min (01/22/23 11:00 AM) 17 br/min (01/22/23 10:09 AM) 16 br/min (01/22/23 7:00 AM) Temperature [96.8-100.4 DegF] 97.7 DegF (01/22/23 11:00 AM) 97.8 DegF (01/22/23 7:00 AM) 98.0 DegF (01/22/23 5:42 AM) Liters per Minute 3 L/min (01/22/23 11:00 AM) 3 L/min (01/22/23 7:00 AM) 3 L/min (01/21/23 10:17 PM) Mode of Delivery (Oxygen) Nasal cannula (01/22/23 11:00 AM) Nasal cannula (01/22/23 7:00 AM) Room air (01/22/23 5:42 AM) Blood pressure sites Arm, right (01/22/23 11:00 AM) Arm, right (01/22/23 7:00 AM) Arm, right (01/22/23 5:42 AM) Temperature Route Oral (01/22/23 11:00 AM) Oral (01/22/23 7:00 AM) Oral (01/22/23 5:42 AM) Dry Weight 75.6 kg (01/18/23 1:02 PM) 75.3 kg (01/18/23 6:15 AM) Weight Obtained Via Patient/family state d (01/18/23 1:02 PM) Standing scale (01/18/23 6:15 AM) Dry Weight Obtained Via Standing scale (01/18/23 6:15 AM) Social History Social History Type Response Tobacco Other: Quit 6 months ago. Smoked for 50+ yrs.. Sex Surgical pathology study * Shiva PONCE, Rex N: REVIEW Event Display: Surgical Pathology Authored Date: [id number] Patient Name: TRENT GEORGE Lab Patient : 1955 (Age: 67) Collection Date: 01/18/2023 Accession Date: 01/18/2023 Sign Out Date: 01/21/2023 Tissue Source: 1:LOOP ILEOSTOMY AND SMALL BOWEL Final Diagnosis: Small bowel with loop ileostomy: - Small bowel with attached skin (ileostomy) with nonspecific chronic inflammation and reactive changes. Primary Pathologist:Beth Garcia M.D. electronically signed out by: Beth Garcia M.D. / LANE Clinical History: Rectal prolapse status post handsewn coloanal anastomosis & loop ileostomy Gross Description: Specimen labeled Loop ileostomy and small bowel. Received in formalin and consists of an unoriented loop of small bowel that is 11.4 cm in total length by 2.3 cm in diameter. There are 2 stapled ends and an opposing open end surrounded by a thin rim of tejeda-sherman, slightly wrinkled skin, from whichmucosa exudes. The specimen is opened to reveal tejeda-pink, slightly edematous mucosa with usual folds. No distinct lesions or masses are grossly identified. Director Security Risk Management sections are submitted. 1-2 pieces. (LG)* Phone #: [phone], On-Call Pathologist: [id number] History and physical note * Event Display: History and Physical Hospital Authored Date: [id number] Note * Noemy Hernandez RN: PERFORM Event Display: Discharge/Transfer Note Hospital Authored Date: [id number] Nursing Discharge Note Entered On: 01/22/2023 13:23 EDT Performed On: 01/22/2023 13:22 EDT by Noemy Hernandez RN Nursing Discharge Note 2 Discharge Time : 01/22/2023 13:22 EDT Discharge Level of Care at Discharge : Home/Long Term/Foster Care Discharge VNA/Hospice/Home Care(v001) : [facility]: [phone] (24 hours Nurse line) Patient Left Unit Via : Wheelchair Patient Accompanied Off Unit with : Other: transport DC Instructions Provided & Signed by Pt : Yes Patient Understands D/C Instructions : Yes Patient Instructions Discharge Signed : Yes Did Pt have Specialty Bed or Wound Vac : No Noemy Hernandez RN - 01/22/2023 13:22 EDT * Michael Vasquez MD: PERFORM Event Display: Discharge/Transfer Note Hospital Authored Date: [id number] Patient: ??TRENT GEORGE ? Age:??67 Years?Sex:??Female?:??1955?? Admit Date Admission Date: 01/18/2023 Discharge Date 01/22/23 Discharge Diagnoses 1.??Status post reversal of ileostomy, 01/22/2023 2.??Asthma with COPD, 01/22/2023 Hospital Course Trent George??is a 59 y/o??female with??h/o COPD who previously underwent a Delorme procedure for rectal prolapse??(06/2022) complicated by rectal perforation and was??taken back to the??OR the following day??for proctectomy with colonic pull-through and coloanal anastomosis with diverting loop ileost stevo.?? She??was then admitted on 01/18/2023 for elective surgery??where she??underwent a Loop ileostomy reversal. ??There were no intraoperative complications. ?? Over the next few days her diet was slowly advanced as she had return of bowel function.?? She complained of difficulty swallowing and??feeling??that food was getting stuck in her throat. ??She reported that this had been happening??at home prior to her being admitted. Speech therapy was consulted for bedside follow-up evaluation and recommended sitting upright in chair with all meals and taking small bites and sips.?? Also recommended a dental soft diet with thin liquids for which was subsequently ordered, and recommended at time of discharge.??Outpatient gastroenterology follow-up was recommended. ?? Throughout her hospital course, she described??difficulty with controlling her bowel movements. ??It was discussed that her bowel movements may continue to evolve as her recovery to reassess.?? It??is??recommended that she use a barrier??cream, such as calmoseptine and water wipes to ease irritation.?? Additionally,??she had some irritation in her right inguinal crease, which she states was secondary to her prior ostomy appliance/spillage.?? She has been using nystatin??powder??as an inpatient to address this.?? It can be used at home too. ?? On POD4 patient was cleared for discharge to home and provided with scripts for tramadol to be used as needed for pain??and topical nystatin powder.?? A band-aid can be??used to cover the surgicalsite.??She was instructed to follow- up in the surgery office on 02/21/2023 at 12 PM for a postop visit with Dr. Shannon. Objective/Physical Exam on Day of Discharge Vitals & Measurements T:??97.8?F?? HR:??86??(Peripheral)?? RR:??16?? BP:??127/71?? SpO2:??92%?? HT:??160??cm?? WT:??75??kg?? BMI:??29.3?? General: No acute distress, awake, alert, laying in bed, very conversational. Head: Normocephalic, atraumatic, nasal canula in place. Cardiac: Well perfused distally. Respiratory: On nasal canula, equal chest rise, able to speak in full sentences, no respiratory distress. Gastrointestinal: soft, mild distension, no significant tenderness Extremities:??moving all extremities appropriately. Right inguinal crease with erythema and residual nystatin powder overlying. Neuro: AAOx3 Psychiatric: Mood and affect is in within normal limits. Surgical site: appropriate healing progression. Fluffs with tape were replaced, no??significant packing. Improving erythema that was previously seen in the distribution of tape. Future Appointments Tuesday 12:00 PM EDT ?? With: Shiva PONCE, Rex Castellon Where: [facility] [address] [place] [address] Drive [address] [place] [address]- Status: Pending PCP Follow-Up/Heads-Up Speech therapy was consulted for??difficulty with??swallowing. Dental soft diet with thins are okay. Recommended GI follow-up as an outpatient. Nystatin powder for right inguinal crease skin irritation. Patient Discharge Condition Good Discharge Disposition Home with services Home Health Face to Face *Denotes mandatory lopez ?? *I certify that this patient is under my care and that I or an allowed non- physician working with me had a face to face encounter with the patient on this date:??01/22/2023 09:24 ?? *The encounter with the patient was in whole, or in part, for the following medical condition, which is the primary diagnosis(es) for home health care:?? Status post reversal of ileostomy, 01/22/2023 Asthma with COPD, 01/22/2023 ?? *Select the indications for the discipline/s that are being arranged for this patient. Nursing (select all that apply): [_] None [_] Medication management (reconciliation, teaching)?? [_] Chronic disease management?? [_] Wound care and treatment?? [_] Home safety evaluation [_] Administer SQ/IM/IV medications?? [_] Cath care?? [_] Drain care?? [_] Trach or GT care?? Other _ Occupation Therapy (select all that apply): [_] None [_] ADL Management [_] Fall prevention training [_] Energy conservation [_] Cognitive training Other _ Physical Therapy (select all that apply): [_] None [_] Functional mobility training [X] Home exercise program to strengthen [_] Increase ROM?? [X] Falls prevention training [_] Home maintenance program for chronic disease Other _ Speech Therapy (select all that apply): [_] None [_] Swallow evaluation and training [_] Speech and language training [_] Cognitive training to process, organize, and/or recall information Other _ ? *Homebound due to (select all that apply): [X] Inability to leave home without assistance/supervision [_] Inability to ambulate without assistance [_] Pain [_] Decreased strength and endurance [_] Unsteady gait [_] Severe SOB and fatigue [_] Impaired transfers [X] Inability to negotiate stairs [_] Limited weight bearing [_] Mental status change? *Physician Signature:??Michael Vasquez MD ?? *By signing this, I certify that I have personally evaluated the patient and agree with the findings and recommendations as documented above. ? Inpatient Medications Medications (17) Active SCHEDULED: (12) Acetaminophen 325 mg Tablet (acetaminophen 325 mg oral tablet) ??975 mg, By Mouth, Every 6 hours Albuterol/Ipratropium Inhalation Maddie 3mL (Duoneb Inhalation Solution) ??1 vials, BAND Nebulizer, 4 times a day Breo Ellipta 200 mcg / 25 mcg Inhaler (Breo Ellipta 200 mcg-25 mcg Inhaler) ??1 puffs, Inhalation, Daily Enoxaparin 40 mg Inj (Enoxaparin Inj) ??40 mg 0.4 mL, Subcutaneous Injection, Every 24 hours Gabapentin 300 mg Capsule (gabapentin 300 mg oral capsule) ??300 mg, By Mouth, Daily at bedtime Ketorolac 30 mg/mL Inj (Toradol Inj) ??15 mg 0.5 mL, IV Push Slowly, Every 6 hours Levothyroxine 100 mcg Tablet (levothyroxine 0.1 mg oral tablet) ??100 mcg, By Mouth, Daily Metoprolol 25mg Tablet (metoprolol 25 mg oral tablet) ??25 mg, By Mouth, Daily Nystatin Powder ??1 application, Topically, 2 times a day Pantoprazole 40 mg EC Tablet (pantoprazole 40 mg oral delayed release tablet) ??40 mg, By Mouth, Daily Paroxetine 10 mg Tablet (PARoxetine 10 mg oral tablet) ??50 mg, By Mouth, Daily Simvastatin 20 mg Tablet (simvastatin 20 mg oral tablet) ??20 mg, By Mouth, Daily at bedtime CONTINUOUS: (0) PRN: (5) Albuterol 90mcg/Inhalation Inhaler HFA (albuterol CFC free 90 mcg/inh inhalation aerosol) ??180 mcg2 puffs, Inhalation, 4 times a day Calcium Carbonate 500 mg (Calcium 200 mg) Chewable Tablet (Tums 500 mg oral tablet, chewable) ??1,000 mg 2 tablet, Chew, 3 times a day Diazepam 5 mg Tablet (Valium 5 mg oral tablet) ??5 mg, By Mouth, Every 8 hours nalOXONE ??400mcg/mL Inj (nalOXONE Inj) ??0.1 mg 0.25 mL, IV Push Slowly, Every 5 minutes TraMADOL 50 mg Tablet (traMADol 50 mg oral tablet) ??50 mg, By Mouth, Every 4 hours Discharge Medications Acetaminophen (acetaminophen 325 mg oral tablet)?975?Milligram?By Mouth?Every 6 hours?as needed?Pain , Mild Albuterol (ProAir HFA 90 mcg/inh inhalation aerosol)?2?puff(s)?Inhalation?4 times a day?as needed?as needed for wheezing Amlodipine (amLODIPine 10 mg oral tablet)?1?tab(s)?10?Milligram?By Mouth?Daily Calcium Carbonate (Tums 500 mg oral tablet, chewable)?1,000?Milligram?2?tablet?Chew?3 times a day?as needed?Dyspepsia Cholecalciferol (Vitamin D3 1000 intl units oral capsule)?By Mouth?Daily Durable Medical Equipment (Coloplast bags #[id number])?See Instructions?Use as needed for ostomy maintenance. Dx ileostomy Z93.2 Fluticasone-Salmeterol (Wixela Inhub 100 mcg-50 mcg inhalation powder)?1?inhalation?Inhalation?2 times a day?rinse mouth and throat after use Gabapentin (gabapentin 300 mg oral capsule)?300?Milligram?1?capsule?By Mouth?Daily at bedtime Levothyroxine (levothyroxine 0.1 mg oral tablet)?1?tab(s)?100?Microgram?By Mouth?Daily Lisinopril (lisinopril 20 mg oral tablet)?20?Milligram?1?tablet?By Mouth?Daily Loperamide?2?Milligram?By Mouth?4 times a day?as needed?as needed for loose stool Metoprolol (Metoprolol Tartrate 25 mg oral tablet)?1?tab(s)?25?Milligram?By Mouth?Daily Nystatin Topical (nystatin topical 196782 u/gm powder)?See Instructions?Topically 2 times a day to affected areas (right inguinal crease) Omeprazole (omeprazole 40 mg oral enteric coated capsule)?1?capsule?40?Milligram?By Mouth?Daily Oxygen?2 liters?Daily at bedtime Paroxetine (PARoxetine 40 mg oral tablet)?40?Milligram?1?tablet?By Mouth?Daily?for total of 50 mg daily Paroxetine (PARoxetine 10 mg oral tablet)?10?Milligram?1?tablet?By Mouth?Daily?for total of 50 mg daily Simvastatin (simvastatin 20 mg oral tablet)?20?Milligram?1?tablet?By Mouth?Daily at bedtime Tramadol (traMADol 50 mg oral tablet)?50?Milligram?By Mouth?Every 4 hours?as needed?Pain , Moderate umeclidinium (Incruse Ellipta 62.5 mcg/inh inhalation powder)?Inhalation?Every 24 hours Labs Last 24 Hours BLOOD COUNT & DIFF ? Event Name?? Event Result?? Date/Time?? WBC 6.7 k/mm3 01/22/23 02:15:00 RBC 3.74 m/mm3??Low 01/22/23 02:15:00 Hgb 10 Gm/dL??Low 01/22/23 02:15:00 Hct 31.3 %??Low 01/22/23 02:15:00 MCV 83.7 femtoliters 01/22/23 02:15:00 MCH 26.7 pg??Low 01/22/23 02:15:00 MCHC 31.9 g/dL??Low 01/22/23 02:15:00 Platelet Count 222 k/mm3 01/22/23 02:15:00 MPV 10.2 femtoliters 01/22/23 02:15:00 Nucleated RBC (Automated) 0 #/100 WBC'S 01/22/23 02:15:00 ? CHEM GENERAL ? Event Name?? Event Result?? Date/Time?? Sodium 138 mmol/L 01/22/23 02:15:00 Chloride 104 mmol/L 01/22/23 02:15:00 Bicarbonate Level 26 mmol/L 01/22/23 02:15:00 Anion Gap 8 01/22/23 02:15:00 Glucose Level 112 mg/dL??High 01/22/23 02:15:00 BUN 10 mg/dL 01/22/23 02:15:00 Creatinine-Blood 0.7 mg/dL 01/22/23 02:15:00 Calcium, Ionized pH Corrected 1.17 mmol/L 01/22/23 02:15:00 Phosphorus 2.8 mg/dL 01/22/23 02:15:00 Magnesium 1.8 mg/dL 01/22/23 02:15:00 ? Patient Education Titles Low-Fiber Diet?? Follow-Up Appointments Dr. Shannon Tuesday 12:00 PM EDT Patient Instructions ?? Colorectal Patients Discharge Instructions For Dr. Carty, Dr. Shannon, Dr. Ash & Dr. Gonzalez/Main office phone [phone]?Avoid strenuous activity until the follow-up appointment with your MD. ?No lifting greater than 5-10 pounds. ?? (5 lbs is a bag of sugar) ?No driving until completely off narcotic pain medication and when cleared with your MD. ?Light walking is allowed and encouraged. ?Daily showering is allowed and encouraged. ?Continue to use your incentive spirometer at home, (as you did in the hospital) until the follow-up appointment with your MD. ?No bathing, No swimming and No hot tubs until the follow-up appointment with your MD. Signs and Symptoms of Infection: ??Call MD office for these:?Fever over 101 degrees ?Increasing redness & swelling of incisions ?Pus or foul smelling drainage coming from your incisions. ?Increasing pain at your incision sites unrelieved by pain medication Call MD office for: ?Persistent nausea and vomiting. ?If your abdomen is getting increasingly bloated, firm and painful. ?Increasing abdominal pain that is not relieved by your pain medication. * aDvid RUVALCABA Noemy: PERFORM Event Display: Patient Education/Instruction Authored Date: [id number] Inpatient Adult Discharge Instructions [place] [id number] Name: TRENT GEORGE : 1955 Visit: 01/18/2023 05:26:00 Current Date: 01/22/2023 12:47 Account: [id number] Inpatient Adult Discharge Instructions We would like to thank you for allowing us to assist you with your healthcare needs. The following includes patient education materials and information regarding your injury/illness. Our entire staffstrives to provide an excellent experience for our patients and their families. PLEASE ENSURE YOU FOLLOW-UP PER THE INSTRUCTIONS BELOW! ?? YOUR OPINION IS IMPORTANT TO US! Please complete the survey you may receive by mail or email. Your feedback will be used to make improvements to the healthcare experiences of our patients and their families. Surveys are administered by [employer] ?? If further treatment with your primary care physician or another doctor is recommended, it is important for you to keep the appointment. Call your primary care physician or return to the Emergency Department immediately if your condition worsens, fails to improve, or new symptoms develop. If you need to find a doctor, you can call [facility] for a referral at [phone] or toll free at [phone] or log in to [email or web address].. ?? You can view and manage your care through the patient portal or by using a health care artemio of your choosing. [employer] is a website that allows you to securely view your medical information including your hospital discharge summary, office visit summaries, medications and follow-up visits. You can also request appointments, renew medications, and request access to your medical information using a health care artemio of your choosing, or just ask a question. You can enroll at [email or web address] or register during your next office visit. You have been discharged from [facility], Patient Care Unit: SW6. If you have any questions regarding these instructions after you leave, please call us and we will be happy to assist you. [facility] Your Care Team Attending Physician Shiva PONCE, Rex Castellon Consulting Providers Shiva PONCE, Rex Castellon Discharging Providers Michael Vasquez MD Reason for Admission RECTAL PROLAPSE URVASHI Your Diagnosis Status post reversal of ileostomy Asthma with COPD Tests Performed Below is a partial list of the tests performed during your hospitalization. You may have had other tests and procedures not included in this list. Please discuss all test results with your provider. 16599 BUN CBC CBC w/ Differential Creatinine Electrolytes Glucose Level HOLD GEL TUBE Ionized Calcium Magnesium Level Phosphorus Level Primary Care Provider Karma High DO Advance Directive Health Care Proxy on File Yes - Health Care Proxy Caregiver Relationship: Spouse Name of Caregiver: abe Patient has a Designated Caregiver: Yes Discharge Vitals Temperature: 97.7 DegF Height: 160 cm Pulse Rate: 81 bpm Weight: 75 kg Respiratory Rate: 16 br/min Body Mass Index:??29.3 kg/m2??High Systolic Blood Pressure: 124 mm Hg Body surface area: 1.83 Diastolic Blood Pressure: 67 mm Hg ?? Oxygen Saturation: 95 % ?? Studies Pending All tests and labs ordered during this hospital stay have been completed unless listed below. Please discuss all pending results with your provider listed above in these instructions. ?? BUN CBC w/ Differential COVID-19 (2019 Novel Coronavirus) PCR Creatinine Electrolytes Glucose Level Ionized Calcium Magnesium Level Phosphorus Level What to do next Instructions From Your Doctor ?? Colorectal Patients Discharge Instructions For Dr. Carty, Dr. Shannon, Dr. Ash & Dr. Gonzalez/Main office phone [phone]?Avoid strenuous activity until the follow-up appointment with your MD. ?No lifting greater than 5-10 pounds. ?? (5 lbs is a bag of sugar) ?No driving until completely off narcotic pain medication and when cleared with your MD. ?Light walking is allowed and encouraged. ?Daily showering is allowed and encouraged. ?Continue to use your incentive spirometer at home, (as you did in the hospital) until the follow-up appointment with your MD. ?No bathing, No swimming and No hot tubs until the follow-up appointment with your MD. Signs and Symptoms of Infection: ??Call MD office for these:?Fever over 101 degrees ?Increasing redness & swelling of incisions ?Pus or foul smelling drainage coming from your incisions. ?Increasing pain at your incision sites unrelieved by pain medication Call MD office for: ?Persistent nausea and vomiting. ?If your abdomen is getting increasingly bloated, firm and painful. ?Increasing abdominal pain that is not relieved by your pain medication. Discharge Orders Scheduled Follow-Up Appointments Tuesday 12:00 PM EDT ?? With: Shiva PONCE, Rex Castellon Where: [facility] General Surgery [address] [place] [address] Drive [address] [place] [address]- Status: Pending Discharge Medications TRENT GEORGE :1955 Visit Date:01/18/2023 Medications: Please continue your medications until treatment is completed or stopped by your provider. Medications not listed below should be discontinued. Discuss any questions related to medications with your provider. What How Much When Why Instructions Next Dose New Calcium Carbonate (Tums 500 mg oral tablet, chewable) 2 tab(s) Chew 3 times a day as needed for Dyspepsia as needed New Nystatin Topical (nystatin topical 430274 u/ gm powder) See instructions Topically 2 times a day to affected areas (right inguinal crease) ?? Pickup at [facility] 3 9am-9pm New Tramadol (traMADol 50 mg oral tablet) 50 Milligram Oral Every 4 hours as needed for Pain , Moderate Pickup at [facility] 3 as needed Unchanged Acetaminophen (acetaminophen 325 mg oral tablet) 975 Milligram Oral Every 6 hours as needed for Pain , Mild Rectal prolapse as needed Unchanged Albuterol (ProAir HFA 90 mcg/ inh inhalation aerosol) 2 puff(s) Inhalation 4 times a day as needed for as needed for wheezing as needed Unchanged Amlodipine (amLODIPine 10 mg oral tablet) 1 tab(s) Oral Daily 01/23/23 Unchanged Cholecalciferol (Vitamin D3 1000 intl units oral capsule) Oral Daily 01/23/23 Unchanged Durable Medical Equipment ([employer] bags #[id number]) See instructions Use as needed for ostomy maintenance. Dx ileostomy Z93.2 ?? Unchanged Fluticasone-Salmeterol (Wixela Inhub 100 mcg-50 mcg inhalation powder) 1 inhalation Inhalation Twice a day rinse mouth and throat after use ?? 9am 9pm Unchanged Gabapentin (gabapentin 300 mg oral capsule) 1 capsule Oral Daily at Bedtime 9pm Unchanged Levothyroxine (levothyroxine 0.1 mg oral tablet) 1 tab(s) Oral Daily 01/23/23 Unchanged Lisinopril (lisinopril 20 mg oral tablet) 1 tab(s) Oral Daily 01/23/23 Unchanged Loperamide 2 Milligram Oral 4 times a day as needed for as needed for loose stool as needed Unchanged Metoprolol (Metoprolol Tartrate 25 mg oral tablet) 1 tab(s) Oral Daily 01/23/23 Unchanged Omeprazole (omeprazole 40 mg oral enteric coated capsule) 1 capsule Oral Daily 01/23/23 Unchanged Oxygen 2 liters Daily at Bedtime at bedtime Unchanged Paroxetine (PARoxetine 10 mg oral tablet) 1 tab(s) Oral Daily for total of 50 mg daily ?? 9a01/23/23 Unchanged Simvastatin (simvastatin 20 mg oral tablet) 1 tab(s) Oral Daily at Bedtime 9pm Unchanged umeclidinium (Incruse Ellipta 62.5 mcg/ inh inhalation powder) Inhalation Every 24 hours 9am 01/23/23 [facility] [address], [place] [id number] [phone] Test Results Below is a partial list of the most recent Laboratory test results done prior to this discharge. You may have had other tests and procedures not included in this list. Please discuss all test resultswith your provider. Est Creatinine Clearance - 63.61 mL/min (01/22/2023) [id number] (01/18/2023) ? ?Surgical Pathology - Patient Name: TRENT GEORGE
Lab
Patient : 1955 (Age: 67)<br/ >Collection Date: 01/18/2023
Accession Date: 01/18/2023
Sign Out Date: 01/21/2023

Tissue Source:
1:LOOP ILEOSTOMY AND SMALL BOWEL

Final Diagno sis:
Small bowel with loop ileostomy:
- Small bowel with attached skin (ileostomy) with nonspecific chronic inflammation and reactive changes.

Primary Pathologist:Beth Garcia M.D.
electronically signed out by: Beth Garcia M.D. / LANE

Clinical History:
Rectal prolapse status post handsewn coloanal anastomosis & loop ileostomy

Gross Description:
Specimen labeled Loop ileostomy and small bowel. Received in formalin and consists of an unoriented loop of small bowel that is 11.4 cm in total length by 2.3 cm in diameter. There are 2 stapled ends and an opposing open end surroundedby a thin rim of tejeda-sherman, slightly wrinkled skin, from which mucosa exudes. The specimenis opened to reveal tejeda-pink, slightly edematous mucosa with usual folds. No distinct lesions or masses are grossly identified. Director Security Risk Management sections are submitted.
1-2 pieces. (LG)*

Phone #: [phone], On-Call Pathologist: [id number] BUN (01/22/2023) ???BUN - 10 mg/dL CBC (01/18/2023) ???WBC - 22.6 k/mm3???RBC - 4.53 m/mm3???Hgb - 11.8 Gm/dL???Hct - 38.3 %???MCV - 84.5 femtoliters???MCH - 26.0 pg???MCHC - 30.8 g/dL???Platelet Count - 289 k/mm3???RDW-SD - 57.4 femtoliters???MPV - 10.0 femtoliters???Nucleated RBC (Automated) - 0.0 #/100 WBC'S???Abs. NRBC - 0.0 k/mm3 CBC w/ Differential (01/22/2023) ???WBC - 6.7 k/mm3???RBC - 3.74 m/mm3???Hgb - 10.0 Gm/dL???Hct - 31.3 %???MCV - 83.7 femtoliters???MCH - 26.7 pg???MCHC - 31.9 g/dL???Platelet Count - 222 k/mm3???RDW-SD - 60.4 femtoliters???MPV - 10.2 femtoliters???Nucleated RBC (Automated) - 0.0 #/100 WBC'S???Abs. NRBC - 0.0 k/mm3???Abs. Neut - 4.4 k/mm3???Abs. Lymph - 1.2 k/mm3???Abs. Creek - 0.9 k/mm3???Abs. Eo - 0.1 k/mm3???Abs. Baso - 0.0 k/mm3???Neut % - 66.4 %???Lymph % - 17.9 %???Creek % - 12.8 %???Eos % - 1.8 %???Baso % - 0.4 %???Imm Gran - 0.7 %???Abs. Imm Gran - 0.1 k/mm3 Creatinine (01/22/2023) ???Creatinine-Blood - 0.7 mg/dL???Estimated GFR Creatinine - 95 ML/MIN/1.73 M2 Electrolytes (01/22/2023) ???Sodium - 138 mmol/L???Potassium - 3.7 mmol/L???Chloride - 104 mmol/L???Bicarbonate Level - 26 mmol/L???Anion Gap - 8 Glucose Level (01/22/2023) ???Glucose Level - 112 mg/dL HOLD GEL TUBE (01/18/2023) ???Hold Gel Top - SPECIMEN DISCARDED AFTER 1 WEEK Ionized Calcium (01/22/2023) ???Calcium, Ionized pH Corrected - 1.17 mmol/L Magnesium Level (01/22/2023) ???Magnesium - 1.8 mg/dL Phosphorus Level (01/22/2023) ???Phosphorus - 2.8 mg/dL Allergies (NKA means No Known Allergies) Contrast Dye??(rash) codeine??(vomiting) Problems Active Problems??(24) Anxiety?? Asthma?? Asthma with COPD?? COVID-19?? Current smoker?? Degenerative Disc Disease?? Depression?? Depression?? Elevated Cholesterol?? Failed back syndrome?? FH: Ischemic heart disease?? GERD?? Hemorrhoids?? HLD (hyperlipidemia)?? HTN?? HTN (hypertension)?? Hyperlipids?? Hypothyroid?? Hypothyroidism?? Lumbar spinal stenosis?? Obesity?? Rectal perforation?? Rectal prolapse?? T MJ?? Education Materials Below is the list of Educational Leaflet Providered with your Discharge Instructions. Low-Fiber Diet?? Valuables and Belongings I fully understand and agree that [facility] accepts no responsibility for all my personal property including clothing, toilet articles, radios, jewelry, dentures, hearing aids, rings, money, or any other property that is in my possession or is brought to me after admission. I understand certain valuables may be placed in a hospital safe for a short period of time. I understand that the hospital is not liable for loss or damage due to accident, fire, or other natural occurrence while said property is in the safe. I accept full responsibility for any personal property that I keep with me, and will not hold the hospital responsible in case of loss or disappearance. I acknowledge that i have been encouraged to send valuables and belongings home. ?? Review of Valuable and Belonging List: With patient, With family Possessions released to: locker Date for Pt to Sign Valuables/Belongings: 01/18/23 12:42:00 ?? Other Discharge Information ? Case Management Discharge Plan?? Discharge Plan?? Discharge Agency Information?? Discharge Level of Care at Discharge: Home/Long Term/Foster Care Name of Agency #1: [facility]: ??[phone] ??(24 hours Nurse line) Discharge VNA/Hospice/Home Care: [facility]: ??[phone] ??(24 hours Nurse line) Agency Dermatology Specialist #1: Daisha ?? Service Categories #1: Physical Therapy ?? Service Comments #1: [facility] will provide your home PT. ??Please call their office with any questions. ?? Pulmonary Rehab Status?? Pulmonary Rehab Discharge Status?? Respiratory Rate: 16 br/min ? Common Emergency Awareness Tips IS IT A STROKE? Act FAST and Check for these signs: FACE Does the face look uneven? ARM Does one arm drift down? SPEECH Does their speech sound strange? TIME Call at any sign of stroke ?? Heart Attack Signs Chest discomfort: Most heart attacks involve discomfort in the center of the chest and lasts more than a few minutes, or goes away and comes back. It can feel like uncomfortable pressure, squeezing, fullness or pain. Discomfort in upper body: Symptoms can include pain or discomfort in one or both arms, back, neck, jaw or stomach. Shortness of breath: With or without discomfort. Other signs: Breaking out in a cold sweat, nausea, or lightheaded. Remember, MINUTES DO MATTER. If you experience any of these heart attack warning signs, call to get immediate medical attention! ?? Smoking can increase your chances of developing chronic health problems and can cause harmful effects to other family members in your house. If you smoke, you are strongly encouraged to quit. Please call [email or web address] Link at [phone] or [phone] ([phone]) or log in to [email or web address] for referrals to smoking cessation programs. ?? 088 Suicide & Crisis Lifeline is available 17/01 if you or someone you know needs to find a reason to keep living. By calling 131 you'll be connected to a skilled, trained counselor at a crisis center in your area. INPATIENT DISCHARGE INSTRUCTIONS SIGNATURE PAGE TRENT GEORGE Location:[facility] Registration Date and Time:01/18/2023 05:26 EDT Primary Care Physician: Karma High DO, Attending Physician: Shiva PONCE, Rex Castellon, I TRENT GEORGE, have received the above patient education materials/instructions and have verbalized understanding. If ambulance or transport services are being used I further acknowledge being givena choice of service. ?? If you need to contact me, please call me at this number: . Patient/Director Security Risk Management Name: Patient/Director Security Risk Management Signature: Relationship to Patient: Witness Name/Signature: Date: * Jaky Underwood: PERFORM Event Display: Patient Education Leaflets Authored Date: [id number] Low-Fiber Diet ?? 13185 Low-Fiber Diet Eggs are high in protein and easy to digest. Eating a low-fiber diet means eating foods that don???t have much fiber. These foods are easy to digest. Most of the fiber that you eat passes undigested through your bowel. This is what forms stool. Low-fiber foods can help to slow down your bowel movements. When you eat a low-fiber diet, you have fewer stools. This lets your intestine rest. Your healthcare provider will tell you how long you need to be on this diet. It may only be for a short time. Low-fiber foods often don???t give you all the nutrients you need to??stay??healthy. Yourhealthcare provider may have you take certain vitamins while you are on this diet. Reasons to eat a low-fiber diet The goal of a??low-fiber diet is to??limit the size and number of your stools. It may be prescribedif you: ??? Are going through chemotherapy or radiation treatments ??? Have had intestinal surgery ??? Have trouble digesting food ??? Have a condition that affects your intestine, such as irritable bowel syndrome, Crohn???s disease, ulcerative colitis, or diverticulitis ?? General guidelines for a low-fiber diet In general, a low-fiber diet means having fewer than 13 grams of fiber a day. Your healthcare provider may give you a list of things you can and can???t eat or drink. Read food labels. Choose foods and drinks that have as close to zero grams of fiber as possible. Here are general guidelines to follow: Breads, pasta, cereal, rice, and other starches (6 to 11 servings daily) ??? What to choose: white bread, biscuits, muffins, and white rolls; plain crackers; waffles; whitepasta; white rice; cream of wheat; grits; white pancakes; corn flakes; cooked potatoes without skin; pretzels.??Fiber content of these foods should be less than 0.5 (??) gram per serving. ??? What topass up: whole-wheat or whole-grain breads, crackers, and pasta; breads with seeds or nuts; wheat germ; jason crackers;??cornbread; wild or brown rice; cereals with whole-grain, bran, and granola; cereals with seeds, nuts, coconut, or dried fruit; potatoes with skin Milk and dairy (2 servings daily) ??? What to choose: milk and buttermilk; yogurt or ice cream without seeds or nuts; custard or pudding; sour cream; cheese and cottage cheese; cream sauces, soups, and casseroles ??? What to pass up:ice cream and yogurt with seeds, nuts, or fruit chunks Fruit (2 to 4 servings daily) ??? What to choose: ripe banana; ripe nectarine, peach, apricot, papaya, and plum; soft honeydew melon and cantaloupe; cooked or canned fruit without skin or seeds (not sweetened with sorbitol); applesauce; strained fruit juice (without pulp) ??? What to pass up: raw or dried fruit; all berries; raisins; canned and raw pineapple; prunes and prune juice; fruit juice with pulp Vegetables (3 to 5 servings daily) ??? What to choose: well-cooked or canned vegetables without seeds, such as spinach, eggplant, green and wax beans, carrots, yellow squash, and pumpkin; lettuce on a sandwich ??? What to pass up: allraw or steamed vegetables; vegetables with seeds, such as unstrained tomato sauce; green peas; limabeans; broccoli; corn; parsnips Meats and protein (4 to 6 ounces daily) ??? What to choose: tender, well-cooked meat, including ground meat, poultry, and fish; eggs; tofu;creamy peanut butter ??? What to pass up: processed meats such as hot dogs and sausages, tough, chewy meat with gristle; peas, including split, yellow, and black-eyed; beans, including navy, frias, black, garbanzo, soy, harris, and??lentil; peanuts and crunchy peanut butter?? Fats, oils, sauces, and condiments (fewer than 8 teaspoons daily) ??? What to choose: butter, margarine, oils, whipped cream, sour cream, mayonnaise, smooth dressings and sauces; plain gravy; smooth condiments ??? What to pass up: dressing with seeds or fruit chunks; pickles and relishes Other foods and drinks ??? What to choose: water; plain gelatin; plain puddings; pretzels; plain cookies and cakes; honey, syrup; decaffeinated drinks, including tea and coffee? What to pass up: popcorn; potato chips;??spicy foods; fried, greasy foods; alcohol (ask your healthcare provider);marmalade, jam, and preserves; desserts that have seeds, nuts, coconut, dried fruit, whole grains, or bran; candy that has seeds or nuts; drinks sweetened with sorbitol or other sugar substitutes; caffeinated drinks, including tea, coffee, soda, and energy drinks ?? Last Reviewed Date: 2022 ?? 3568-9766 [employer]. All rights reserved. This information is not intended as a substitute for professional medical care. Always follow your healthcare professional's instructions. ?? * Event Display: Adult Preadmission Health Questionnaire Authored Date: Cardiology * Event Display: Cardiac Rhythm Strips Authored Date: Hospital Progress note * Noemy Hernandez RN: VERIFY, PERFORM, SIGN Event Display: Progress Note Hospital Authored Date: Patient: TRENT GEORGE Age: 67 years Sex: Female : 1955 Associated Diagnoses: None Author: Noemy Hernandez RN Findings Narrative/Incidental IV access pulled DC instructions explained to the pt to be dcd via WC * Elena Savage RN: PERFORM, SIGN, VERIFY Event Display: Progress Note Hospital Authored Date: [id number] Patient: TRENT GEORGE Age: 67 years Sex: Female : 1955 Associated Diagnoses: None Author: Elena Savage RN Findings Problem Related to Alteration in Gastrointestinal : Alteration in Gastrointestinal Func/new 01/21/2023 12:00 EDT Alteration in GI status Related to Other: Ileostomy reversal Goals & Outcomes, Gastrointestinal Establish a regular pattern of elimination for pt, Nutritional intake is adequate for metabolic needs, Pt will achieve normal/improved fluid balance, Pt will have a bowel movement prior to discharge, Pt will maintain adequate GI function appropriate for pt, Ptwill maintain normal elimination patterns, Pt will resume/maintain adequate hemodynamic status, Pt will tolerate age appropriate diet prior to discharge Interventions, Gastrointestinal Assess/monitor abdominal girth & bowel function, Assess/monitorbowel pattern, bowel sounds, flatus, Assess/monitor pt for nausea, vomiting, DVT prophylaxis as ordered BH Goals/Interventions, Gastrointestinal Yes Gastrointestinal, Problem Start 01/18/2023 20:40 Reviewed plan with, Gastrointestinal Patient Patient Progression, Gastrointestinal Pt progressing according to plan . Narrative/Incidental P: Alteration in Gastrointestinal I: See Plan of Care Above E: Pt is alert and oriented x 3. + pp +cms. LS diminshed throughout, denies SOB, denies chest pain,acapella encouraged, updrafts administered per order, on O2 3L, sats 91-94%. Abd soft, round, tender, + bs + flatus, LBM 01/20, pt reports her bowel movements are less and a bit more formed that yesterday, tolerating diet, but reports a decrease in appetite and difficulty swallowing, speech saaw pt today. Voids in BR c/y/u. Pt ambulated in hallway 50 ft with walker and 1 assist. RLQ abd dsg c/d/i.Nystatin and triad cream to groin per order. Pain being controlled with tylenol, toradol, valium. . * Jaky Underwood: PERFORM Event Display: Progress Note Hospital Authored Date: [id number] Patient: ??TRENT GEORGE ? Age:??67 Years?Sex:??Female?:??1955?? Subjective No acute events. Pt is??sleepy but easily arousable. Reports her pain as 01/03 when awoken. States she was not able to eat much yesterday as she has been having trouble swallowing and food gets stuck in her throat. She states this has been happening at home too but she never got it evaluated.??Shedenies having nausea but c/o heartburn. Continues to pass gas and liquid blood tinged bms. Ambulating with walker and staff assist. Denies any fevers, chills, cp or sob. Physical Exam Vitals & Measurements T:??97.5?F?? HR:??102??(Peripheral)?? RR:??18?? BP:??127/79?? SpO2:??92%?? HT:??160??cm?? WT:??75??kg?? BMI:??29.3?? General: No acute distress,??sleepy, arousable Cardio: Regular rate and rhythm Lungs: Non labored 92% on 3LNC Abdomen: softly distended,??LLQ tenderness Neuro: A&O x 3 Extremities: No edema Incision: Prior ostomy site with??small amount of serosanguinous drainage on dressings, no active drainage noted, +blanching erythema lateral to ostomy site Assessment/Plan Pt??is a 67 y/o??female with h/o COPD who previously underwent a Delorme procedure for rectal prolapse on 07/23/2022 complicated by rectal perforation and underwent subsequent proctectomy with colonicpull-through and coloanal anastomosis??with diverting loop ileostomy. She was admitted on 01/18/23 for elective surgery and underwent Loop ileostomy closure. Pt reports difficulty swallowing and was not able to take in much PO. Will??place Speech Therapy consult to evaluate. She is passing gas and having loose bowel movements. ? Plan:?? -dental soft??diet as tolerated -f/u Speech Therapy consult -multi modal pain regiment-Tylenol/Toradol/Tramadol/Valium -monitor daily labs -wean oxygen as able -OOB ambulate as tolerated -DVT prophylaxis -PT eval -DC planning ?? Discussed with Dr. Shannon Colorectal surgery #[id number] Intake and Output Intake and Output Results?? This visit (24 hour periods starting at 07:00 EDT)? 01/21/23 *?? 01/20/23?? 01/19/23?? Total Summary?Intake mL?? --?? 740?? 4,410?Output mL?? --?? 800?? 2,600?Fluid Balance ?? --?? -60?? 1,810?? Intake (3)?Lactated Ringers Injection 1,000 mL mL?? --?? --?? 3,000?Magnesium Sulfate mL?? --?? 50?? 50?Oral Fluids mL?? --?? 690?? 1,360?Total?? --?? 740?? 4,410?? Output (1)?Urine Voided mL?? --?? 800?? 2,600?Total?? --?? 800?? 2,600?? Counts (3)?Oral Fluids mL?? --?? 690?? 1,360?Urine Count ?? --?? 3?? 2?Urine Voided mL?? --?? 800?? 2,600? * This column has not completed the indicated time period.?? Labs Last 24 Hours BLOOD COUNT & DIFF ? Event Name?? Event Result?? Date/Time?? WBC 11.9 k/mm3??High 01/21/23 03:45:00 RBC 3.9 m/mm3??Low 01/21/23 03:45:00 Hgb 10.4 Gm/dL??Low 01/21/23 03:45:00 Hct 32.4 %??Low 01/21/23 03:45:00 MCV 83.1 femtoliters 01/21/23 03:45:00 MCH 26.7 pg??Low 01/21/23 03:45:00 MCHC 32.1 g/dL??Low 01/21/23 03:45:00 Platelet Count 241 k/mm3 01/21/23 03:45:00 MPV 10.5 femtoliters 01/21/23 03:45:00 Nucleated RBC (Automated) 0 #/100 WBC'S 01/21/23 03:45:00 ? CHEM GENERAL ? Event Name?? Event Result?? Date/Time?? Sodium 137 mmol/L 01/21/23 03:45:00 Chloride 103 mmol/L 01/21/23 03:45:00 Bicarbonate Level 24 mmol/L 01/21/23 03:45:00 Anion Gap 10 01/21/23 03:45:00 Glucose Level 93 mg/dL 01/21/23 03:45:00 BUN 9 mg/dL 01/21/23 03:45:00 Creatinine-Blood 0.6 mg/dL 01/21/23 03:45:00 Calcium, Ionized pH Corrected 1.21 mmol/L 01/21/23 03:45:00 Phosphorus 2.6 mg/dL 01/21/23 03:45:00 Magnesium 1.9 mg/dL 01/21/23 03:45:00 ? * Shiva PONCE, Rex N: PERFORM Event Display: Progress Note Hospital Authored Date: Attending Attestation:??I have seen and evaluated this patient. ??I have discussed the case and itsmanagement with the resident and agree with the findings and plan as documented in the resident???snote. Consult note * Yeni Ballesteros RN: VERIFY, PERFORM, SIGN Event Display: Consultation Note Authored Date: Patient: TRENT GEORGE Age: 67 years Sex: Female : 1955 Associated Diagnoses: None Author: Yeni Ballesteros RN History of Presenting Problem from pouch Reason for referral Wound: Description Location- R Groin Etiology- Moisture Associated Skin Damage - Intertrigo Wound Bed- mirror image area of erythema and hyperpigmentation Caprice Wound- intact Edges- defined Drainage- none Odor- none Goals- protection with zinc oxide. Wound RN consult entered to assess right groin wound and make topical recommendations. Patient was admitted for elective ileostomy reversal. She has a PMH of COPD, asthma, depression, HLD, HTN, hypothyroidism, and obesity. Upon entering the room patient is lying in bed. Wound RN role explained and patient is agreeable to assessment as well as photodocumentation. She tells me that she noticed this since her admission. She then realized and explained to me that her ostomy pouch would sit right in her groin crease. She does not have any skin breakdown over the left groin. We discussed that this will get better on its own now that her ostomy pouch is off. We discussed the use of Zinc Oxide toprotect the area. Update provided to direct care RN. Recommendations: 1.) R Groin: Cleanse with pH balanced spray. Pat dry. Apply Z Guard cream. Reapply every 12 hours and as needed. Please reconsult wound care RNs for deterioration in wound/skin status Plan Time spent 16-30 minutes Patient Care team information Care Team Personnel Name: Geetha Jurado RN Position: [facility] RN Member Role: Primary Care Nurse Name: Bruna Joseph RN Position: S RN Member Role: Primary Care Nurse Name: Kristin Sands RN Position: [facility] RN Member Role: Primary Care Nurse Name: Karma High DO Position: [facility] Physician - Primary Care Member Role: PCP Address: Address: [address] [place] [address]- Name: Cady Dove RN Position: S RN Member Role: Primary Care Nurse Name: Elena Savage RN Position: S RN Member Role: Primary Care Nurse Name: Leyla Chua RN Position: S RN Member Role: Primary Care Nurse Name: Naya Ocampo RN Position: S RN Member Role: Primary Care Nurse Care Team Related Persons Name: ABE CAST Address: home [address] [address] Name: SAUMYA MAX Address: [place] [address]
--- OUTSIDE RECORDS SUMMARY | 2023-07-06 09:32 | XMS_ITS | Continuity of Care Document ---
Author Name Unknown Organization [facility] Address [address] [place] [address]- Care Team Providers Care Mine Supervisor Name Role Phone Israel Panda MD Primary Care Physician [phone] [place] [facility] [place] 11/27/20 - 11/27/[address] [address] Discharge Disposition: A-D/C Home Attending Physician: Alberto Power MD Admitting Physician: Alberto oPwer MD Referring Physician: Alberto Power MD Allergies, Adverse Reactions, Alerts Substance Reaction Severity Status codeine vomiting Active Contrast Dye rash Active Immunizations Given and Recorded Vaccine Date Status Refusal Reason SARS-CoV-2 (COVID-19) mRNA BNT-162b2 vac 11/07/20 Given SARS-CoV-2 (COVID-19) mRNA BNT-162b2 vac 10/17/20 Given Medications Advair Diskus 250 mcg-50 mcg inhalation powder 1, puffs, Inhalation, 2 times a day, 0, 0, 07/03/08 13:56:43, Print ANTIONE Number, [id number], Constant Indicator Start Date: 07/03/08 Status: Ordered Albuterol 2.5, mg, Neb, Every 4 hours, Scheduled / PRN, 0, 0, 07/03/08 14:02:09, as needed for wheezing, Print ANTINOE Number, 51 Start Date: 07/03/08 Status: Ordered [...] 11:57:22 EDT Start Date: 02/24/18 Status: Ordered FENTanyl Inj 50 mcg, Injection, IV Push Slowly, Every 5 minutes for 4 doses/times, in PACU ONLY, Hold for: RR less than 8 or over-sedation, PRN for Pain , Severe, Repeat until Pain Score is less than or equal to 2, Routine, 11/27/20 16:16:00 EDT, Stop date Limited... Start Date: 11/27/20 Status: Ordered fluticasone 50 mcg/inh nasal spray [...] 11:51:30 EDT Start Date: 02/24/18 Status: Ordered oxyCODONE 5 mg oral tablet 5 mg, 1, tablet, By Mouth, Every 6 hours, PRN, # 28 tablet, Refills 0, Tot. Refills 0, Acute 12/07/20 15:17:00 EDT, Pain , Moderate, 11/27/20 15:17:00 EDT, Route to Pharmacy Electronically, [facility], Partial fill upon patient request i... Start Date: 11/27/20 Stop Date: 12/07/20 Status: Ordered Oxygen 2 liters, Daily at [...] 8 hrs at night for HS wheezing Procedures Procedure Date Related Diagnosis Body Site Status Revision or removal of impla nted spinal neurostimulator pulse generator or electrical power engineer Completed Vital Signs Most recent to oldest [Reference Range]: 1 2 3 Height 163 cm (11/27/20 3:06 PM) Oxygen Saturation [94-100 %] 94 % (11/27/20 5:30 PM) 97 % (11/27/20 5:15 PM) 97 % (11/27/20 5:00 PM) Pulse Rate [55-90 bpm] 81 bpm (11/27/20 3:06 PM) Blood Pressure [90-138/55-84 mm Hg] 109/78mm Hg (11/27/20 5:30 PM) 114/58mm Hg (11/27/20 5:15 PM) 113/58mm Hg (11/27/20 5:00 PM) Respiratory Rate [16-30 br/min] 17 br/min (11/27/20 5:30 PM) 15 br/min *L* (11/27/20 5:26 PM) 16 br/min (11/27/20 5:20 PM) Temperature [96.8-100.4 DegF] 98.9 DegF (11/27/20 5:30 PM) 98.9 DegF (11/27/20 4:45 PM) 97.8 DegF (11/27/20 3:06 PM) Liters per Minute 2 L/min (11/27/20 5:00 PM) Mode of Delivery (Oxygen) Room air (11/27/20 5:30 PM) Room air (11/27/20 5:15 PM) Nasal cannula (11/27/20 5:00 PM) Blood pressure sites Arm, right (11/27/20 3:06 PM) Temperature Route Temporal (11/27/20 5:30 PM) Temporal (11/27/20 4:45 PM) Temporal (11/27/20 3:06 PM) Dry Weight 77.9 kg (11/27/20 3:06 PM) Dry Weight Obtained Via Standing scale (11/27/20 3:06 PM) Social History Social History Type Response Smoking Status Current every day alli sparrow entered on: 10/22/17 Sex
--- OUTSIDE RECORDS SUMMARY | 2023-07-06 09:32 | XMS_ITS | Continuity of Care Document ---
Author Name Unknown Organization [facility] Address [address] [place] [address] [address] [place] [address]- Care Team Providers Care Aboriginal Ceremonial Celebrant Name Role Phone Karma High DO Primary Care Nicole valentine [place] [facility] [place] 07/28/22 - 09/04/[address] [place], [place] [address] Attending Physician: Cherie Carty MD Referring Physician: Karma High DO Allergies, [...] influenza virus vaccine, inactivated 04/19/14 Kenny rded [id number] 12y+ bivalent booster vax 04/18/22 Recorded SARS-CoV-2 [...] Start Date: 07/29/22 Status: Ordered Coloplast bags #[id number] Coloplast bags #[id number], See Instructions, # 20 each, Refills 11, [...] 0 Refills, Maintenance, 07/28/22 13:18:00 EST, Patch, [facility], Partial fill upon patient request if [...] capsule, 0 Refills, Maintenance, 08/04/22 7:21:00 EST, [facility], Partial fill upon patient request... Start [...] 0 Refills, Maintenance, 07/28/22 13:17:00 EST, Tablet, [facility], Partial fill upon patient request if [...] Team Personnel Name: Geetha Jurado RN Position: [facility] RN Member Role: Primary Care Nurse Name: Meghan Thapa RN Position: [facility] RN Member Role: Primary Care Nurse Name: Kristin Sands RN Position: [facility] RN Member Role: Primary Care Nurse Name: Mariana London RN Position: [facility] RN Member Role: Primary Care Nurse Name: Karma High DO Position: [facility] Physician (General Medicine) Member Role: PCP Address: Address: [address] [facility] [place] [address]- [place] Name: Leyla Chua RN Position: [facility] RN Member Role: Primary Care Nurse Name: Naya Ocampo RN Position: [facility] RN Member Role: Primary Care Nurse Care Team Related Persons Name: ABE CAST Address: [facility] [address] [place] [address] Name: SAUMYA MAX Address: [place] [address]
--- OUTSIDE RECORDS SUMMARY | 2023-07-06 09:32 | XMS_ITS | Continuity of Care Document ---
Author Name Unknown Organization [facility] Address [address] [place] [address]- Care Team Providers Care Truck Dock Material Mover Name Role Phone Cameron Dayana Karma Primary Care Nicole valentine Encounter [facility] Date(s): 01/07/23 - 02/06/23 [facility] [address] [place], [place] [address] Attending Physician: Humphrey Tapia Admitting Physician: AdmHumphrey brown Referring Physician: AdmtrHumphrey Allergies, Adverse Reactions, Alerts Substance Reaction Severity [...] influenza virus vaccine, inactivated 04/19/14 Kenny rded [id number] 12y+ bivalent booster vax 04/18/22 Recorded SARS-CoV-2 [...] Start Date: 07/29/22 Status: Ordered Coloplast bags #61269 Coloplast bags #47265, See Instructions, # 20 each, Refills 11, [...] DO Position: [facility] Physician - Primary Care Member Role: PCP Address: Address: [address] [place] [address] Name: Cady Dove RN Position: S RN Member Role: Primary Care Nurse Name: Elena Savage RN Position: S RN Member Role: Primary Care Nurse Name: Leyla Chua RN Position: S RN Member Role: Primary Care Nurse Name: Naya Ocampo RN Position: S RN Member Role: Primary Care Nurse Care Team Related Persons Name: ABE CAST Address: [address] [address] Name: SAUMYA MAX Address: [place] [address]
--- OUTSIDE RECORDS SUMMARY | 2023-07-06 09:32 | XMS_ITS | Continuity of Care Document ---
Author Name Unknown Organization [facility] [place] [address] [address] [place] [address]- Care Team Providers Care Normalizer Name Role Phone Karma High DO Primary Care Nicole valentine [place] [facility] [place]23 - 02/22/23 [facility] [address] [place] [address]- Attending Physician: Carloz PONCE, Cherie John Referring Physician: Karma High DO Allergies, Adverse [...] influenza virus vaccine, inactivated 04/19/14 Kenny rded [id number] 12y+ bivalent booster vax 04/18/22 Recorded SARS-CoV-2 [...] Start Date: 07/29/22 Status: Ordered Coloplast bags #24025 Coloplast bags #63707, See Instructions, # 20 each, Refills 11, Tot. Refills 11, Maintenance, Use as needed for ostomy maintenance. Dx ileostomy Z93.2, 08/23/22 14:43:00 EST, Supply Start Date: 08/23/22 Status: Ordered [employer] [facility] oral capsule 1 capsule, By Mouth, Daily, for 30 days, # 30 capsule, 0 Refills, Acute 03/17/23 13:03:00 EDT, 02/15/23 13:03:00 EDT, [id number], Partial fill upon patient request if the [...] Care Nurse Name: Karma High DO Position: S Physician - Primary Care Member Role: PCP Address: Address: [address] [place] [address] Name: Cady Dove RN Position: S RN Member Role: Primary Care Nurse Name: Elena Savage RN Position: S RN Member Role: Primary Care Nurse Name: Leyla Chua RN Position: S RN Member Role: Primary Care Nurse Name: Naya Ocampo RN Position: S RN Member Role: Primary Care Nurse Care Team Related Persons Name: ABE CAST Address: home [facility] [address] [place] [id number] Name: SAUMYA MAX Address: [place] [address]
--- OUTSIDE RECORDS SUMMARY | 2023-07-06 09:32 | XMS_ITS | Continuity of Care Document ---
Author Name Unknown Organization [facility] Address [address] [place] [address], [address] [place] [address]- Care Team Providers Care Inseam Leveler Name Role Phone Israel Panda MD Primary Care Physician [phone] Encounter [facility] [place] Date(s): 04/28/20 - 05/05/20 [facility] [address] [place] [address] Drive, [address] [place], [place] [address] Attending Physician: Mena Jones DO Referring Physician: Rita Armando Allergies, Adverse Reactions, Alerts Substance Reaction Severity Status codeine vomiting Active Contrast Dye rash Active Medications Advair Diskus 250 mcg-50 mcg inhalation powder 1, puffs, Inhalation, 2 times a day, 0, 0, 07/03/08 13:56:43, Print ANTIONE Number, [id number], Constant Indicator Start Date: 07/03/08 Status: Ordered [...] oldest [Reference Range]: 1 Height 163 cm (04/25/20 1:31 PM) Weight 83.0 kg (04/25/20 1:31 PM) Body Mass Index [18.5-24.99] 31.24 *>HHI* (04/25/20 1:31 PM) Social History Social History Type Response Smoking Status Current every day alli sparrow entered on: 10/22/17 Sex
--- OUTSIDE RECORDS SUMMARY | 2023-07-06 09:32 | XMS_ITS | Continuity of Care Document ---
Author Name Unknown Organization [facility] Address [address] [place] [address]- Care Team Providers Care Ehs Engineer Name Role Phone Israel Panda MD Primary Care Physician En[place] [facility] [place] Date(s): 10/04/19 - 10/14/[address] [address]- [facility] Attending Physician: Admtr, Abner8 Admitting Physician: Admtr, Ar8 Referring Physician: Admtr, Ar8 Allergies, Adverse Reactions, Alerts Substance Reaction Severity Status codeine vomiting Active Contrast Dye rash Active Medications Advair Diskus 250 mcg-50 mcg inhalation powder 1, puffs, Inhalation, 2 times a day, 0, 0, 07/03/08 13:56:43, Print ANTIONE Number, [id number], Constant Indicator Start Date: 07/03/08 Status: Ordered [...]
--- OUTSIDE RECORDS SUMMARY | 2023-07-06 09:32 | XMS_ITS | Continuity of Care Document ---
Author Name Unknown Organization [facility] Address [address] [place] [address] [address] [place] [address]- Care Team Providers Care Specialist Employee Labor Relations Name Role Phone Karma High DO Primary Care Nicole valentine Encounter [facility] [place] Date(s): 06/17/22 - 06/24/[address] [place] [address]- Encounter Diagnosis Rectal prolapse(Discharge Diagnosis) - 06/17/22 Attending Physician: Shiva PONCE, Rex Castellon Referring [...] 0, 0, 07/03/08 13:56:43, Print ANTIONE Number, [id number], Constant Indicator Start Date: 07/03/08 Status: Ordered [...] Active Obese class I Confirmed Active Rectal prolapse Confirmed Active 1oxygen x 8 hrs at night for HS wheezing Diagnosis Diagnosis Type Effective Dates Health Status inical Service Informant Rectal prolapse Discharge Diagnosis 06/17/22 Vital Signs Most recent to oldest [Reference Range]: 1 Height 163 cm (06/17/22 2:21 PM) Weight 82.8 kg (06/17/22 2:21 PM) Pulse Rate [55-90 bpm] 79 bpm (06/17/22 2:21 PM) Body Mass Index [18.5-24.99 kg/m2] 31.16 kg/m2 *>HHI* (06/17/22 2:21 PM) Blood Pressure [90-138/55-84 mm Hg] 126/ 66mm Hg (06/17/22 2:21 PM) Temperature [96.8-100.4 DegF] 97.8 DegF (06/17/22 2:21 PM) Blood pressure sites Arm, right (06/17/22 2:21 PM) Temperature Route Temporal (06/17/22 2:21 PM) Social History Social History Type Response Smoking Status Current every day alli sparrow entered on: 10/22/17 Sex Patient Care team information Care Team Personnel Name: Meghan Thapa RN Position: [facility] RN Member Role: Primary Care Nurse Name: Karma High DO Position: [facility] Physician (General Medicine) Member Role: PCP Address: Address: [address] [place] [address]- Care Team Related Persons Name: ABE CAST Address: [address] [place] [address] [place] [id number] Name: SAUMYA MAX Address: [place] [address]
--- OUTSIDE RECORDS SUMMARY | 2023-07-06 09:32 | XMS_ITS | Continuity of Care Document ---
Author Name Unknown Organization [facility] Address [address] [place] [address]- Care Team Providers Care Website Designer Name Role Phone Israel Panda MD Primary Care Physician [phone] En[place] [facility] [place] Date(s): 08/21/19 - 12/01/[address] [address]- [facility] Discharge Disposition: A-D/C Home Attending Physician: Israel Panda MD Admitting Physician: Israel Panda MD Referring Physician: Papa Carranza MD Allergies, Adverse Reactions, Alerts Substance Reaction Severity Status codeine vomiting Active Contrast Dye rash Active Medications Advair Diskus 250 mcg-50 mcg inhalation powder 1, puffs, Inhalation, 2 times a day, 0, 0, 07/03/08 13:56:43, Print ANTIONE Number, [id number], Constant Indicator Start Date: 07/03/08 Status: Ordered [...]
--- OUTSIDE RECORDS SUMMARY | 2023-07-06 09:33 | XMS_ITS | Continuity of Care Document ---
Author Name Unknown Organization [facility] ter Address [address] [place] [id number]- Care Team Providers Care Neonatal Doctor Name Role Phone WilfredofinaKarma Grant DO Primary Care Nicole valentine Encounter [facility] Date(s): 07/29/22 - 08/04/[address] [address]- Encounter Diagnosis COPD exacerbation(Final) - 07/29/22 Discharge Disposition: A-D/C Home Attending Physician: Kingsley Mccabe DO Admitting Physician: José Donohue DO Referring Physician: Not on Staff, Referring MD [...] influenza virus vaccine, inactivated 04/19/14 Kenny rded [id number] 12y+ bivalent booster vax 04/18/22 Recorded SARS-CoV-2 [...] opioid drug. Start Date: 07/29/22 Status: Ordered amLODIPine 10 mg oral tablet 10 mg, Tablet, By Mouth, 08/04/22 9:00:00 EST Start Date: 08/04/22 Stop Date: 08/04/22 Status: Completed enoxaparin 40 mg/0.4 mL injectable solution 0.4 mL = 40 mg, Subcutaneous Injection, Daily, for 28 days, # 11.2 mL, 0 Refills, Acute 08/25/22 13:19:00 EST, 07/28/22 13:19:00 EST, Injection, [facility], Partial fill upon patient request [...] 02/24/18 Status: Ordered metoprolol 25 mg oral tablet, extended release 25 mg, XL Tablet, By Mouth, 08/04/22 9:00:00 EST Start Date: 08/04/22 Stop Date: 08/04/22 Status: Completed Metoprolol Tartrate 25 mg oral [...] 0 Refills, Maintenance, 07/28/22 13:18:00 EST, Patch, [facility], Partial fill upon patient request [...] capsule, 0 Refills, Maintenance, 08/04/22 7:21:00 EST, [facility], Partial fill upon patient request... Start [...] 0 Refills, Maintenance, 07/28/22 13:17:00 EST, Tablet, [facility], Partial fill upon patient request if the prescription is for a schedule II opioid drug., 160,... Start Date: 07/28/22 Status: Ordered traMADol 50 mg oral tablet 50 mg, Tablet, By Mouth, Every 6 hours, PRN for Pain , Severe, Routine, 07/31/22 15:15:00 EST Start Date: 07/31/22 Stop Date: 08/05/22 Status: Discontinued Vitamin D3 1000 intl units oral capsule [...] syndrome Confirmed Active Rectal prolapse Confirmed Active Results Orders for Microbiology Reports Name Date Blood Culture 07/30/22 Urine Culture (URINE CULTURE) 07/29/22 Microbiology Reports TEST:Blood Culture STATUS:Auth (Verified) BODY SITE: SOURCE:Blood COLLECTED DATE/TIME:07/30/22 5:46 AM Blood Culture SPECIMEN DESCRIPTION : BLOOD AEROBIC ONLY SPECIAL REQUESTS : NONE CULTURE : NO GROWTH 5 DAYS. REPORT STATUS : FINAL 08/04/2022 TEST:Urine Culture STATUS:Auth (Verified) BODY SITE: SOURCE:URINE COLLECTED DATE/TIME:07/29/22 6:17 PM Urine Culture SPECIMEN DESCRIPTION : URINE SPECIAL REQUESTS : NONE CULTURE : NO GROWTH REPORT STATUS : FINAL 07/31/2022 Radiology Reports * Exam Date Time Procedure Performing Provider Status 07/30/22 9:[address] Angio Chest Lizeth Oneill; Auth (Verified) Notes: (CT Angio Chest) Reason For Exam: PE suspected, low prob, unknown D-dimer;Other: RESULT: CT Angio Chest EXAMINATION: CT Angio Chest INDICATION: Increased oxygen requirement. Increased shortness of breath. Reason: Other:; PE suspected, low prob, unknown D-dimer; Clinical Question(s): Pulmonary Embolism; Order Comment: TECHNIQUE: Spiral CTA of the chest was performed after rapid IV contrast administration without cardiac gating, triggered by an DELILAH on the main pulmonary artery. Images are formatted in multiple planes using 2-D multiplanar and 3-D maximum intensity projection. 50 cc of Omnipaque 300 was administered intravenously. Weight-based protocol using automatic tube modulation was used to optimize exposure parameters. CTDIvol Body: 6.20 mGy, DLP Body: 298 mGy*cm. COMPARISONS: None. ANGIOGRAPHIC FINDINGS: No pulmonary embolism to the subsegmental level. Normal caliber pulmonary arteries. No acute aortic abnormality seen on this study performed without cardiac gating. Mild atherosclerotic calcifications in the aorta. NON-ANGIOGRAPHIC FINDINGS: Crisis Worker View Findings, Lines and Tubes: Epidural electrodes terminate at the T9 level. Trachea and Airways: Patent without evidence of tracheal or endobronchial lesion. Lungs and Pleura: Upper lobe predominant interlobular thickening with poorly defined groundglass opacities with possible underlying mild centrilobular emphysema. Mild dependent atelectasis in lower lobes. No effusion or pneumothorax. Mediastinum and gilbert: No mass or hematoma. No mediastinal or hilar lymphadenopathy. No esophageal abnormality. Heart: Heart is normal in size. No pericardial effusion. Mild coronary artery calcification. Chest Wall Soft Tissues: Normal. Diaphragm and upper abdomen: No significant abnormality. Bones: No acute abnormality. Bilateral glenohumeral osteoarthritis, left worse than right. IMPRESSION: 1. No evidence of pulmonary embolism. 2. Upper lobe predominant interlobular septal thickening and groundglass opacities are nonspecific.The differential diagnosis includes hypersensitivity pneumonitis, as before with pneumonia, and atypical infection (not typical of Covid-19 pneumonia). Follow-up with nonemergent high-resolution chest CT is recommended. A critical result message (Yellow) has been communicated via the [employer] system on 07/30/2022 10:42 PM, Message ID [id number]. WSN: [id number] Ordering Physician: Micki Arriaza Dictated By: Jacquie Rivera MD Dictated Date/Time: 07/30/22 10:42 p Reviewed By: Jacquie Rivera MD Signed By: Jacquie Rivera MD Signed Date/Time: 07/30/22 10:42 pm Transcribed By: ART Transcribed Date/Time: 07/30/22 10:30 pm * Exam Date Time Procedure Performing Provider Status 07/30/22 11:57 AM US Doppler Ext Lower Venous Bilat Laura Harper; Auth (Verified) Notes: (US Doppler Ext Lower Venous Bilat) Reason For Exam: Pain in limb;Other: RESULT: US Doppler Ext Lower Venous Bilat US Doppler Ext Lower Venous Bilat Refer to EMR: Leg pain. COMPARISON: None IMAGING TECHNIQUE: Ultrasound of the veins from the groin through the calf was performed using grayscale, color, and spectral Doppler ultrasound assessing for complete compressibility and normal flowcharacteristics. FINDINGS: RIGHT LOWER EXTREMITY: Common femoral vein: Patent. No thrombosis. Femoral vein: Patent. No thrombosis. Popliteal vein: Patent. No thrombosis. Gastrocnemius veins: The visualized portions are patent without evidence of thrombosis. Peroneal veins: The visualized portions are patent without evidence of thrombosis. Posterior tibial veins: The visualized portions are patent without evidence of thrombosis. LEFT LOWER EXTREMITY: Common femoral vein: Patent. No thrombosis. Femoral vein: Patent. No thrombosis. Popliteal vein: Patent. No thrombosis. Gastrocnemius veins: The visualized portions are patent without evidence of thrombosis. Peroneal veins: The visualized portions are patent without evidence of thrombosis. Posterior tibial veins: The visualized portions are patent without evidence of thrombosis. OTHER FINDINGS: Within the right popliteal fossa there is a complex cystic structure measuring 6.1 x 1.9 x 3 cm without internal vascularity. IMPRESSION: 1. No evidence of deep venous thrombosis. 2. 6.1 cm complex right Vieira's cyst. WSN: [id number] Ordering Physician: Xiomy Gama Dictated By: Lani Cross MD Dictated Date/Time: 07/30/22 12:07 p Reviewed By: Lani Cross MD Signed By: Lani Cross MD Signed Date/Time: 07/30/22 12:07 pm Transcribed By: ART Transcribed Date/Time: 07/30/22 12:05 pm * Exam Date Time Procedure Performing Provider Status 07/29/22 2:58 PM Chest Portable Corrina Rice; Auth (V erified) Notes: (Chest Portable) Reason For Exam: Shortness of Breath RESULT: Chest Portable Chest Portable HX OF PRESENT ILLNESS: Patient presented via [facility] from home, patient was d c yesterday with new ileostomy. VNA found patient's o2 sat in the 80s on her baseline 2L via [place]. ALbuterol inhaler at home with no improvement. ALbuterol neb en route with 6L via [place] COMPARISON: 07/25/2022 and multiple priors. FINDINGS: Overlying tubing material limits evaluation. LINES AND TUBES: Partially visualized spinal stimulator device projecting over the mid/lower thoracic vertebra. LUNGS AND PLEURA: Mild central pulmonary vascular congestion and diffuse interstitial prominence. There are right greater than left lower lobe patchy opacities. No pleural effusion. No pneumothorax. HEART, MEDIASTINUM AND GIBLERT: Heart is normal in size. Aorta is calcified. BONES AND SOFT TISSUES: No acute abnormality. IMPRESSION: 1. Mild pulmonary congestion/edema. 2. Persistent right greater than left lower lobe patchy opacities, superimposed pneumonia cannot beexcluded. I have personally reviewed the images and I agree with this report. WSN: [id number] Ordering Physician: Xiomy Gama Dictated By: Jennyfer Goodman MD Dictated Date/Time: 07/29/22 3:13 pm Reviewed By: Jenny Alvarado MD Signed By: Jenny Alvarado MD Signed Date/Time: 07/29/22 3:18 pm Transcribed By: ART Transcribed Date/Time: 07/29/22 3:07 pm Vital Signs Most recent to oldest [Reference Range]: 1 2 3 Height 160 cm (07/30/22 2:12 AM) 160 cm (07/29/22 11:55 AM) Weight 81.6 kg (07/30/22 2:12 AM) 74 kg (07/29/22 11:55 AM) Oxygen Saturation [94-100 %] 95 % (08/04/22 11:00 AM) 100 % (08/04/22 8:00 AM) 95 % (08/04/22 7:00 AM) Pulse Rate [55-90 bpm] 94 bpm *H* (08/04/22 11:00 AM) 89 bpm (08/04/22 8:44 AM) 89 bpm (08/04/22 6:00 AM) Body Mass Index [18.5-24.99 kg/m2] 31.88 kg/m2 *>HHI* (07/30/22 2:12 AM) Blood Pressure [90-138/55-84 mm Hg] 120/71mm Hg (08/04/22 11:00 AM) 130/72mm Hg (08/04/22 8:44 AM) 130/72mm Hg (08/04/22 8:43 AM) Respiratory Rate [16-30 br/min] 20 br/min (08/04/22 10:00 AM) 19 br/min (08/04/22 8:00 AM) 22 br/min (08/04/22 7:00 AM) Temperature [96.8-100.4 DegF] 97.8 DegF (08/04/22 11:00 AM) 98.3 DegF (08/04/22 6:00 AM) 98.5 DegF (08/04/22 2:00 AM) Liters per Minute 3 L/min (08/04/22 8:00 AM) 2 L/min (08/04/22 6:00 AM) 2 L/min (08/04/22 2:00 AM) Mode of Delivery (Oxygen) Other: Phelps (08/04/22 11:00 AM) Nasal cannula (08/04/22 8:00 AM) Nasal cannula (08/04/22 6:00 AM) Blood pressure sites Arm, left (08/04/22 11:00 AM) Arm, left (08/04/22 8:00 AM) Arm, left (08/04/22 2:00 AM) Temperature Route Oral (08/04/22 11:00 AM) Oral (08/04/22 6:00 AM) Oral (08/04/22 2:00 AM) Dry Weight 79.5 kg (07/30/22 2:12 AM) 74 kg (07/29/22 11:55 AM) Weight Obtained Via Bed scale (07/30/22 2:12 AM) Patient/family stated (07/29/22 11:55 AM) Dry Weight Obtained Via Patient/family stated (07/29/22 11:55 AM) Social History Social History Type Response Smoking Status 10 or more cigarette s (1/2 pack or more)/day in last 30 days entered on: 07/20/22 Sex History and physical note * Lissa PONCE, Kristina Zaragoza: PERFORM, MODIFY, MODIFY Event Display: History and Physical Hospital Authored Date: Patient: ??[facility] PER[facility]UE ? Age:??67 Years?Sex:??Female?:??1955?? 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 ?? Background history: She was recently discharged from the colorectal service on July 28. She had been admitted on July 23 for elective surgery and underwent Delorme procedure for rectal prolapse. Overnight she was noted to have passage of blood clots as well as coughing, shortness of breath and had recurrence of her rectal prolapse as well as small bowel evisceration through the anus. The rectum was reduced through the anal canal however she had to be taken to the OR emergently for exploratory laparotomy and was found to have a 3 cm full-thickness rectal injury proximal to the mucosal repair. She then underwent perineal rectosigmoidectomy with coloanal anastomosis and diverting loop ileostomy. Prior to discharge she was seen by the pulmonary rehab nurse who suggested 2 L of O2 with activity. She had been on Zosyn during the hospital stay and was discharged on Augmentin as well as Lovenox. After discharge, as soon as she got home??with having a hard time breathing. [facility] is on the 2nd floor and she had to practically crawl??up the 13 steps??to get into the apartment.??Has a nebulizer machine at home but??did not have any??albuterol solution.??Tried using all 3 of her inhalers??without relief.??Had??increased cough but was having difficulty expectorating.??She also noticed that she had a temperature of 99.3.??Was unable to??lay back??in bed??and had to be propped up on 5 pillows, turn up her oxygen to 4 L??and??lay on her left side??so she could get somerest.??In the morning, VNA came??and noticed??that she was having respiratory distress??and that her O2 sats were only 88% on the 4 L.??She alerted??EMS??and patient was brought to the hospital.??Denies any chest pain, abdominal pain, vomiting. ?? ED course: Upon presentation she was afebrile, heart rate 102, blood pressure within normal limit, O2 sats 90% on 2 L. She was subsequently placed on BiPAP. Portable chest x-ray was reported as mild pulmonary congestion/edema. Persistent right greater than left lower lobe patchy opacities, superimposed pneumonia cannot be excluded. EKG, sinus tachycardia, low voltage QRS. She was given 7.5 mg of albuterol nebulizer, 1 vial of DuoNeb, 125 mg of IV Solu-Medrol, 500 cc of LR bolus and started on heparin drip. She was also placed on a BiPAP??when she was noted to be increasingly tachypneic. Labs notable for white cell count of 15.5 with left shift, hemoglobin 8.6, hematocrit 37.3. D-dimer 2.12.BNP 356. High-sensitivity troponin 16. VBG with venous pH 7.64, PCO2 17.4, PO2 103.??ED provider wanted??to order CT angiogram however??patient was unable to lay flat. ?? At the time of my evaluation. She was??on BiPAP??03/31, 30% FiO2??and her O2 sats were in the??low 90s.??She did report improvement in her??respiratory status.??Was unable to communicate properly??on account of being on BiPAP. Review of Systems Positive for??dyspnea, dyspnea on exertion, orthopnea,??mild abdominal pain at the site of surgery,??cough with difficulty expectorating, low-grade fever, chronic back pain. Denies chest pain, nausea, vomiting, diarrhea. All other systems were reviewed and are negative. Objective Measurements?? Height: 160 cm (07/29/22) Weight: 74 kg (07/29/22) Dry Weight: 74 kg (07/29/22) ? Vital Signs?? Temperature: 97.8 DegF (07/29/22 11:55:00) Temperature Route: Oral (07/29/22 11:55:00) Pulse Rate:??120 bpm??High (07/29/22 19:33:00) Respiratory Rate: 25 br/min (07/29/22 19:32:00) Systolic Blood Pressure:??153 mm Hg??High (07/29/22 19:33:00) Diastolic Blood Pressure: 76 mm Hg (07/29/22 19:33:00) Blood pressure sites: Arm, right (07/29/22 11:55:00) Mean Arterial Pressure: 95 mm Hg (07/29/22 11:55:00) Pulse Pressure: 57 mm Hg (07/29/22 17:19:00) Oxygen Saturation: 97 % (07/29/22 19:46:00) Liters per Minute: 6 L/min (07/29/22 19:32:00) Mode of Delivery (Oxygen): BiPAP (07/29/22 19:46:00) FiO2: 30 % (07/29/22 13:28:00) Early Warning Score: 6 (07/29/22 19:47:12) ? Physical Exam Constitutional: Elderly woman, alert, tachypneic. Head EENT: Extraocular muscle movement intact.??Dry mucous membranes.??On BiPAP Neck: Supple. Difficult to appreciate??JVD Respiratory: Diffuse wheezes??with use of accessory muscles. Cardiovascular: S1S2 tachycardia. No murmurs, rubs or gallops. Gastrointestinal: Abdomen soft, non-tender, non-distended. Normal bowel sounds.??Ileostomy??right lower quadrant Genitourinary: No CVA tenderness. Extremities: Trace??bilateral lower extremity pitting??edema. No cyanosis or clubbing. Neurologic: AAOx3, Speech normal. No focal neurological deficits. Skin: No rash. 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 ?? Acute respiratory failure with hypoxia (J96.01):??O2 sats were 88% on 4 L??when she was evaluated by??the VNA.??No prior history of??CHF??but she does have a history of asthma and COPD.??Differentials include??COPD exacerbation,??new onset CHF,??pneumonia, pulmonary embolism. Chest x-ray by my interpretation with pulmonary vascular congestion and diffuse interstitial prominence??especially at thebases. BNP was minimally elevated and she had 2 sets of troponins [address] acute [address]-T wave changes on EKG.??ED provider did bedside ultrasound which revealed normal EF, no pericardial effusion, B-lines bilaterally however IVC was flat. I reviewed her last hospitalization and she received at least 8 L of IV fluids. She also had been getting enoxaparin for DVT prophylaxis.??D-dimer was elevated??in the setting of recent surgery. COVID PCR was negative. -Will treat for??possible COPD exacerbation??with??DuoNebs,??IV Solu-Medrol. -Given suspicion for pneumonia??(leukocytosis, low-grade fever,??increased haziness in the bases, R>L) including aspiration??will switch her back to Zosyn. MRSA nasal swab ordered??as well as sputum for Gram stain. -Check procalcitonin??and if not suggestive of bacterial infection, can??discontinue??Zosyn but switched to Augmentin to complete??3-day course??from discharge -She is currently on??heparin??drip??for suspected pulmonary embolism. Was unable to??lay flat??forthe CT angiogram. Lower extremity ultrasound??has been ordered??currently pending. If she is able to??lay flat tomorrow, CT??chest??angiogram should be ordered. -Given??B lines??on bedside ultrasound, orthopnea??and the fact that she received 8 L of??IV fluids??during??her recent hospital stay, will??give 1 dose of IV Lasix -Continue BiPAP ?? Asthma with COPD (J44.9):??Treatment as above??with scheduled??and PRN Aida, IV Solu-Medrol while she is on??BiPAP. Wixela and Incruse Ellipta not on formulary. ?? Anemia (D64.9):??Presurgery hemoglobin was 11.1 when checked on July 20. Postoperatively it dropped to 8.8 and was 8.4 at the time of discharge. Currently 8.6. Since it is microcytic, will check iron studies. ?? HTN (hypertension) (I10):??Outpatient regimen consist of??lisinopril 20 mg at bedtime, amlodipine 10 mg daily??as well as??metoprolol 25 mg daily. All 3 medications??will be continued ?? HLD (hyperlipidemia) (E78.5):??Continue simvastatin ?? Hypothyroidism (E03.9):??Continue levothyroxine ?? Depression (F32.A):??Continue Paxil. She takes a total of 50 mg daily ?? Chronic back pain: Continue gabapentin, tramadol as needed ?? VTE Prophylaxis:??Currently on heparin drip ?VTE Prophylaxis Assessment:??Excluded from VTE prophylaxis measure ?? Code Status:??Full code ?Order Code Status:??Code Status Ordered ? Histories Allergies Allergies ?(Active and Proposed Allergies Only) Contrast Dye? (Severity: Unknown severity, Onset: Unknown) ?Reactions: rash codeine? (Severity: Unknown severity, Onset: Unknown) ?Reactions: vomiting ? Past Medical History/Problem List Active Problems??(12) Asthma with COPD COVID-19 Current smoker Depression Failed back syndrome FH: Ischemic heart disease Hemorrhoids HLD (hyperlipidemia) HTN (hypertension) Hypothyroidism Obese class I Rectal prolapse ? Past Surgical History Parathyroidectomy (right inferior gland): 03/07/18 Revision or removal of implanted spinal neurostimulator pulse generator or mixer tender Hemorrhoidectomy multiple back surgeries, varicose vein stripping, left ear surgery ? Social History She is . Lives with her at home.??Quit smoking??on July 23, 2022. ? Family History One of her daughters has type 1 diabetes Brother: Asthma ?? Medications Home Medications Acetaminophen (acetaminophen 325 mg oral tablet)?975?Milligram?By Mouth?Every 6 hours?as needed?Pain , Mild Albuterol (ProAir HFA 90 mcg/inh inhalation aerosol)?2?puff(s)?Inhalation?4 times a day?as needed?as needed for wheezing Amlodipine (amLODIPine 10 mg oral tablet)?1?tab(s)?10?Milligram?By Mouth?Daily Amoxicillin-Clavulanate (amoxicillin-clavulanate 875 mg-125 mg oral tablet)?1?tab(s)?By Mouth?2 times a day?for 3?Days Cholecalciferol (Vitamin D3 1000 intl units oral capsule)?By Mouth?Daily Enoxaparin (enoxaparin 40 mg/0.4 mL injectable solution)?0.4?Milliliter?40?Milligram?Subcutaneous Injection?Daily?for 28?Days Fluticasone-Salmeterol (Wixela Inhub 100 mcg-50 mcg inhalation powder)?1?inhalation?Inhalation?2 times a day?rinse mouth and throat after use Gabapentin (gabapentin 300 mg oral capsule)?300?Milligram?1?capsule?By Mouth?Daily at bedtime Levothyroxine (levothyroxine 0.1 mg oral tablet)?1?tab(s)?100?Microgram?By Mouth?Daily Lisinopril (lisinopril 20 mg oral tablet)?20?Milligram?1?tablet?By Mouth?Daily Loperamide?2?Milligram?By Mouth?4 times a day?as needed?as needed for loose stool Metoprolol (Metoprolol Tartrate 25 mg oral tablet)?1?tab(s)?25?Milligram?By Mouth?Daily Naproxen (naproxen 500 mg oral delayed release tablet)?1?tab(s)?500?Milligram?By Mouth?2 times a day?as needed?Pain , Moderate Nicotine (Nicotine 7 mg/24 hour patch)?1?patch(es)?Topically?Daily Omeprazole (omeprazole 40 mg oral enteric coated capsule)?1?capsule?40?Milligram?By Mouth?Daily Oxygen?2 liters?Daily at bedtime Paroxetine (PARoxetine 40 mg oral tablet)?40?Milligram?1?tablet?By Mouth?Daily?for total of 50 mg daily Paroxetine (PARoxetine 10 mg oral tablet)?10?Milligram?1?tablet?By Mouth?Daily?for total of 50 mg daily Simvastatin (simvastatin 20 mg oral tablet)?20?Milligram?1?tablet?By Mouth?Daily at bedtime Tramadol (traMADol 50 mg oral tablet)?1?tab(s)?50?Milligram?By Mouth?Every 4 hours?as needed?Pain , Moderate umeclidinium (Incruse Ellipta 62.5 mcg/inh inhalation powder)?Inhalation?Every 24 hours ? Results ?? Test Name Test Result Date/TimepH Venous (POC) POC Cartridge 7.64 (High) 07/29/2022 15:16 EST pCO2 Venous (POC) POC Cartridge 17.4 mm Hg (Low) 07/29/2022 15:16 EST pO2 Venous (POC) POC Cartridge 103 mm Hg (High) 07/29/2022 15:16 EST WBC 15.5 k/mm3 (High) 07/29/2022 13:00 EST Hgb 8.6 Gm/dL (Low) 07/29/2022 13:00 EST Hct 27.3 % (Low) 07/29/2022 13:00 EST Platelet Count 369 k/mm3 07/29/2022 13:00 EST D-Dimer 2.12 mg/L FEU (High) 07/29/2022 13:00 EST Sodium 136 mmol/L 07/29/2022 13:00 EST Potassium 3.7 mmol/L 07/29/2022 13:00 EST Chloride 99 mmol/L 07/29/2022 13:00 EST Bicarbonate Level 21 mmol/L (Low) 07/29/2022 13:00 EST Glucose Level 94 mg/dL 07/29/2022 13:00 EST BUN 6 mg/dL (Low) 07/29/2022 13:00 EST Creatinine-Blood 0.5 mg/dL 07/29/2022 13:00 EST Calcium 9.0 mg/dL 07/29/2022 13:00 EST Protein, Total 5.5 Gm/dL (Low) 07/29/2022 13:00 EST Albumin 3.1 Gm/dL (Low) 07/29/2022 13:00 EST Alkaline Phosphatase 156 units/L (High) 07/29/2022 13:00 EST AST (SGOT) 33 units/L (High) 07/29/2022 13:00 EST ALT (SGPT) 21 units/L 07/29/2022 13:00 EST Bilirubin, Total 0.4 mg/dL 07/29/2022 13:00 EST Nt-Probnp 356 pg/mL (High) 07/29/2022 13:00 EST High Sensitivity Troponin (HSTnT) 11 ng/L 07/29/2022 14:26 EST High Sensitivity Troponin (HSTnT) 16 ng/L (High) 07/29/2022 12:22 EST Imaging(s) ?Chest Portable ?? 07/29/2022 14:58??by Christiano PONCE Jenny ?1. Mild pulmonary congestion/edema. 2. Persistent right greater than left lower lobe patchy opacities, superimposed pneumonia cannot beexcluded. ?Other Image ?EKG: Sinus tachycardia. Low voltage QRS ?Portable CXR EKG study * Event Display: ECG 12-Lead Authored Date: Please click on pdf link to open report * Event Display: ECG 12-Lead Authored Date: Ventricular Rate: 106 BPM Atrial Rate: 106 BPM P-R Interval: 142 ms QRS Duration: 74 ms Q-T Interval: 352 ms QTC Calculation(Bazett): 467 ms P Hemet: 50 degrees R Hemet: 16 degrees T Hemet: 71 degrees Sinus tachycardia Low voltage QRS Borderline ECG When compared with ECG of 20-JUL-2022 09:34, Vent. rate has increased BY 39 BPM QT has lengthened Confirmed by NATA RAMIREZ ([id number]) on 08/02/2022 9:23:42 PM [place]: NATA RAMIREZ Heart * Event Display: Echocardiogram - Complete Authored Date: [id number] Transthoracic Echocardiography Report (TTE) Patient Demographics Patient Name TRENT PERDUE Date of Study 07/30/2022 Corporate Gender Female Facility Race Ethnicity Date of 1955 Height: 62.99 inches Age 67 year(s) Weight: 178.58 pounds Accession Number [id number] BSA: 1.84 m2 Room Number SW51 BMI: 31.64 kg/m2 Referring Physician Do Micki Eaton TRIP FOLLOWER Interpreting Marilin Maier MD Physician Health Program Specialist Shawanda Hernandez Indications Heart failure. Clinical History Hypertension. COPD Hyperlipidemia. Obese Tobacco user Study Data Type of Study TTE procedure:Echo Complete-Doppler, Colorflow, M-Mode. Study Date07/30/2022 Start Time: 02:26 PM Study Location: [facility] [place] Adult Echo Study Status: Bedside Patient Status: Routine Technical Quality: Fair due to patient supine. Blood Pressure:133/85 mmHg EKG: Normal sinus rhythm HR: 102 bpm 2D Measurements LV Diastolic Dimension: 4.8 cm LV Systolic Dimension: 3.4 cm LV Septum Diastolic: 0.9 cm LV PW Diastolic: 1 cm AO Root Dimension: 2.9 cm LA Dimension: 2.9 cm LA ESV (BP):35.4 ml LVOT Stroke Volume: 106.38 ml LA ESV Index: 19 ml/m2 Stroke Volume Index57.82 ml/m2 LVOT: 2.2 cm Cardiac Index:5.9 l/min/m2 Doppler Measurements AV Peak Velocity: 153 cm/s MV Peak E-Wave: 72.7 cm/s AV Peak Gradient: 9.36 mmHg MV Peak A-Wave: 114 cm/s AV Mean Gradient: 6 mmHg MV E/A Ratio: 0.64 AV VTI:25.7 cm LVOT Peak Velocity: 120 cm/s LVOT VTI28 cm MV Deceleration Time: 134 msec AV Area (Continuity):4.14 cm2 TR Velocity:208 cm/s TR Gradient:17.31 mmHg Estimated RAP:8 mmHg Estimated RVSP: 25.3 mmHg E' Septal Velocity: 13.5 cm/s E' Lateral Velocity: 12 cm/s E/Med E':5.071436 E/Lat E':6.324805 Cardiac Anatomy Left Ventricle/Interventricular Septum The left ventricle is normal in size. Ejection fraction is 55-60% overall. No definite wall motion abnormalities detected. Normal diastolic function. Left Atrium/Interatrial Septum The left atrium is normal in size. Aortic Valve Mild regurgitation. No significant stenosis. Mitral Valve Trace regurgitation. Visually, no significant stenosis. There appears to be an artifact on the subchordal apparatus. Aorta The aortic root is normal in size when indexed. Right Ventricle The right ventricle is normal in size. Function is grossly preserved. Right Atrium The right atrium is poorly visualized but grossly normal in size. Pulmonic Valve Not visualized. Tricuspid Valve No significant regurgitation. Pumonary Artery The pulmonary artery systolic pressure estimation is 25-30 mmHg. Venous Structures IVC is normal in size. Inspiratory collapse appears blunted. Pericardium/Extracardiac No definite pericardial effusion seen. Summary The left ventricle is normal in size. Ejection fraction is 55-60% overall. No definite wall motion abnormalities detected. Normal diastolic function. The left atrium is normal in size. The right ventricle is normal in size. Function is grossly preserved. The right atrium is poorly visualized but grossly normal in size. The pulmonary artery systolic pressure estimation is 25-30 mmHg. Comparison No prior study available for comparison. Signature * Event Display: Echocardiogram - Complete Authored Date: [id number] Hospital Progress note * Cherie Tubbs RN: SIGN, MODIFY, PERFORM, SIGN, VERIFY Event Display: Progress Note Hospital Authored Date: Patient: TRENT PERDUE Age: 67 years Sex: Female : 1955 Associated Diagnoses: None Author: Cherie Tubbs RN Findings Problem Related to Alteration in Gastrointestinal : Alteration in Gastrointestinal Func/new 08/04/2022 9:00 EST Alteration in GI status Related to Ostomy, GI Goals & Outcomes, Gastrointestinal Nutritional intake is adequate for metabolic needs, Pt will achieve normal/improved fluid balance, Ostomy will be functioning properly prior to D/C, Pt will correctly state/demonstrate applying ostomy pouch Interventions, Gastrointestinal Resolved problem, Interventions no longer in effect Goals/Interventions, Gastrointestinal Yes Gastrointestinal, Problem Start 08/02/2022 10:05 Reviewed plan with, Gastrointestinal Patient Patient Progression, Gastrointestinal Resolved problem Gastrointestinal, Problem Resolved 08/04/2022 9:27 . Alteration in Respiratory Function (new) : Alteration in Respiratory Function/new 08/04/2022 9:00 EST Alteration in Resp Status Related to COPD Goals & Outcomes, Respiratory Pt will maintain/resume baseline physical assessment, Pt will notdevelop complications r/t mechanical ventilation, Pt will maintain adequate nutritional intake, Pt will maintain/resume normal fluid/electrolyte balance, Pt will not develop complications r/t immobility, Pt will demonstrate proper technique w/self care procedures Interventions, Respiratory Resolved problem, Interventions no longer in effect BH Goals/Interventions, Respiratory Yes Respiratory, Problem Start 07/30/2022 5:00 Reviewed Plan with, Respiratory Patient Patient Progression, Respiratory Resolved problem Respiratory, Problem Resolved 08/04/2022 9:27 . Nursing Data Cardiac Data. : Cardiac Data. 08/04/2022 7:58 EST Cardiovascular Symptoms None Skin Temperature Upper Extremities Warm Skin Temperature Lower Extremities Warm Heart Sounds S1, S2 Heart Rhythm Regular Cardiac Rhythm Normal sinus rhythm Capillary Refill < 3 seconds Radial Pulse, Left Normal Radial Pulse, Right Normal Dorsalis Pedis Pulse, Left Normal Dorsalis Pedis Pulse, Right Normal Edema None monitor and storage bin tender Yes Cardiovascular WNL except . Gastrointestinal Data. : Gastrointestinal Data. 08/04/2022 7:58 EST Abdomen Soft, Non-tender Bowel Sounds LUQ Present Bowel Sounds RUQ Present Bowel Sounds LLQ Present Bowel Sounds RLQ Present Last Bowel Movement 08/04/2022 Stool color and description Watery, entirely liquid Ostomy present Yes Gastrointestinal Comment julio drain patent Stoma description (GI) Moist GI WNL except Normal Bowel Pattern Other: ostomy . Genitourinary Data. : Genitourinary Data. 08/04/2022 7:58 EST Genitourinary Symptoms Incontinent WNL except . Integumentary Data. : Integumentary Data. 08/04/2022 8:00 EST Sensory Perception No impairment Moisture Occasionally moist Activity Walks occasionally Mobility Slightly limited Nutrition Adequate Friction and Shear Problem Peter Score 17 Nursing Care Plan initiated/updated Yes . Neurological Data. : Neurological Data. 08/04/2022 7:58 EST Neurological Symptoms None Level of Consciousness Full Consciousness Orientated to person, place, time Person, Place, Time, Event Strength LUE 5-Active movement against gravity & full resistance Strength RUE 5-Active movement against gravity & full resistance Strength LLE 5-Active movement against gravity & full resistance Strength RLE 5-Active movement against gravity & full resistance Tone LUE Normal Tone RUE Normal Tone LLE Normal Tone RLE Normal Sensation LUE Intact Sensation RUE Intact Sensation LLE Intact Sensation RLE Intact Movement LUE Spontaneous Movement RUE Spontaneous Movement LLE Spontaneous Movement RLE Spontaneous Gait Steady Neuro WNL except Headache None Memory Intact . Respiratory/Pulmonary Data. : Respiratory/Pulmonary Data. 08/04/2022 7:58 EST Respiratory Symptoms Dyspnea with exertion Respiratory effort Unlabored Cough Non-productive, Loose, Occasional Left Upper Lobe Breath Sounds Diminished Right Upper Lobe Breath Sounds Clear Right Middle Lobe Breath Sounds Diminished Left Lower Lobe Breath Sounds Diminished Right Lower Lobe Breath Sounds Diminished Respiratory WNL except . Vital Signs : VITAL SIGNS SECTION 08/04/2022 11:00 EST Temperature 97.8 DegF Temperature Route Oral Pulse Rate 94 bpm H Systolic Blood Pressure 120 mm Hg Diastolic Blood Pressure 71 mm Hg Blood pressure sites Arm, left Pulse Pressure 49 mm Hg Oxygen Saturation 95 % Mode of Delivery (Oxygen) Other: Phelps 08/04/2022 10:11 EST SOFA Calculated 2 08/04/2022 8:46 EST Early Warning Score 3.00 08/04/2022 8:46 EST Early Warning Score 3.00 08/04/2022 8:44 EST Pulse Rate 89 bpm Systolic Blood Pressure 130 mm Hg Diastolic Blood Pressure 72 mm Hg 08/04/2022 8:43 EST Systolic Blood Pressure 130 mm Hg Diastolic Blood Pressure 72 mm Hg 08/04/2022 8:09 EST Early Warning Score 3.00 08/04/2022 8:02 EST Early Warning Score 3.00 08/04/2022 8:00 EST Heart Rate Monitored 91 bpm H (Modified) Respiratory Rate 19 br/min (Modified) Vented No Systolic Blood Pressure 131 mm Hg (Modified) Diastolic Blood Pressure 72 mm Hg (Modified) Blood pressure sites Arm, left Pulse Pressure In Error mm Hg (In Error) Oxygen Saturation 100 % Liters per Minute 3 L/min Mode of Delivery (Oxygen) Nasal cannula 08/04/2022 7:00 EST Heart Rate Monitored 85 bpm Respiratory Rate 22 br/min Vented No Systolic Blood Pressure 145 mm Hg H Diastolic Blood Pressure 117 mm Hg H Pulse Pressure 28 mm Hg Oxygen Saturation 95 % . Evaluation Pt is eager for discharge. A/Ox4 with a steady gait. Pt on 2 liters of oxygen and tank brought in for home. Dressing to abdomen dry and intact. JULIO drain patent. Ileostomy patent with no leaking. Casemanagement reports pt has home services that will resume and pt agrees with this plan.. * Cherie Tubbs RN: PERFORM Event Display: Progress Note Hospital Authored Date: JULIO drain removed prior to discharge * Kingsley Mccabe DO: PERFORM Event Display: Progress Note Hospital Authored Date: Patient: ??TRENT PERDUE ? Age:??67 Years?Sex:??Female?:??1955?? Chief Complaint/Reason for Consultation Shortness of Breath History of Present Illness I saw Trent in the hospital. ??I reviewed her previous discharge summary, she been discharged from the colorectal service??on 28 July readmitted on 29 July for respiratory failure. ??She completed a course of IV antibiotics and IV steroids, she is currently on prednisone.?? She reported to me that today she walked in the hallway with physical therapy and she felt comfortable going home with home oxygen.?? She has 13 stairs to walk up and down to get into her house, but she assured me that she could walk 1 or 2 steps at a time rest to be able to get in her house.?? [facility]??some of her questions about??her oxygen company, she uses [employer]??but may have some issue with payment. ??She needs portable oxygen at home and I reassured her that we will call her and go over the discharge plan. ?? Otherwise she is feeling well without fevers chills chest pain shortness of breath. ??She has been taught how to change her ostomy and was making plans to have visiting nurses come to her house tohelp her with it.?? JULIO drain is coming out in 2 days, she has surgical follow-up already scheduled. Review of Systems Feeling well, no complaints. Objective Vital Signs?? Temperature: 98.5 DegF (08/03/22 10:07:00) Temperature Route: Oral (08/03/22 10:07:00) Pulse Rate: 82 bpm (08/03/22 11:32:00) Heart Rate Monitored:??91 bpm??High (08/03/22 06:49:00) Respiratory Rate: 21 br/min (08/03/22 14:22:00) Vented: No (08/03/22 06:49:00) Systolic Blood Pressure:??141 mm Hg??High (08/03/22 14:22:00) Diastolic Blood Pressure: 72 mm Hg (08/03/22 14:22:00) Blood pressure sites: Arm, left (08/03/22 14:22:00) Pulse Pressure: 69 mm Hg (08/03/22 14:22:00) Oxygen Saturation: 94 % (08/03/22 14:22:00) Liters per Minute: 2 L/min (08/03/22 14:22:00) Mode of Delivery (Oxygen): Nasal cannula (08/03/22 14:22:00) Early Warning Score: 7 (08/03/22 14:23:13) SOFA Calculated: 2 (08/03/22 10:07:36) ? Intake/Output? 07/29 15:19 08/03 07:00 08/02 07:00 08/01 07:00 07/31 07:00 ?? 08/03 16:25 08/03 16:25 08/03 06:59 08/02 06:59 08/01 06:59 Intake ? 2466.6 ?0 ?580 ?580 ?240 Output ? 8215 ?350 ? 1915 ? 2000 ? 1130 Net Total ?-5748.4 ? -350 ?-1335 ?-1420 ? -890 ? Urine Count ? 25 ?4 ?5 ?8 ?6 ? Physical Exam General:??Alert appropriate HEENT:??No scleral icterus Chest:??Clear bilaterally no wheezing or rhonchi CV:??Regular rate and rhythm Abdomen:??Abdomen soft nontender there is??liquid stool in the bag Extremities:??No lower extremity Neuro:??Ambulatory independent in the room?? Skin:??Warm and dry ? Assessment/Plan 67-year-old female with chronic respiratory failure, secondary to COPD. ?? She had been discharged after her colorectal surgery and was readmitted with respiratory failure, now??improved after steroids and antibiotics. ?? She will be appropriate for home discharge tomorrow on prednisone??and her inhalers. ?? Discharge Planning:? We have begun discharge planning, we are working with case management, the patient be discharged onextended course of prednisone with a taper, follow-up with colorectal surgery, no antibiotics, and all of her home medicines. ?? I made no changes to her home medicines today but will for case management to come up with an earlydischarge plan for tomorrow. ??Next we will call her . ?? The patient agrees with all of the above. ?? 30 minutes spent. Histories Past Medical History/Problem List Active Problems??(12) Asthma with COPD COVID-19 Current smoker Depression Failed back syndrome FH: Ischemic heart disease Hemorrhoids HLD (hyperlipidemia) HTN (hypertension) Hypothyroidism Obese class I Rectal prolapse ? Past Surgical History Parathyroidectomy (right inferior gland): 03/07/18 Revision or removal of implanted spinal neurostimulator pulse generator or mixer tender Hemorrhoidectomy multiple back surgeries, varicose vein stripping, left ear surgery ? Social History Alcohol Details:??Use: Never. Exercise Details:??Self assessment: Fair condition. Home/Environment Details:??Living situation: Home/Independent. ??Lives with: Spouse. Nutrition/Health Details:??Diet: Regular. Sexual Details:??Gender identity: Identifies as female. Substance Abuse Details:??Use: Never. Tobacco Details:??Use: 10 or more cigarettes (1/2 pack or more)/day in last 30 days. Details:??Current every day smoker Electronic Cigarette/Vaping Details:??Electronic Cigarette Use: Never. ? Family History Mother: Unknown Father: Unknown Brother: Asthma ? Medications Home Medications Acetaminophen (acetaminophen 325 mg oral tablet)?975?Milligram?By Mouth?Every 6 hours?as needed?Pain , Mild Albuterol (ProAir HFA 90 mcg/inh inhalation aerosol)?2?puff(s)?Inhalation?4 times a day?as needed?as needed for wheezing Amlodipine (amLODIPine 10 mg oral tablet)?1?tab(s)?10?Milligram?By Mouth?Daily Cholecalciferol (Vitamin D3 1000 intl units oral capsule)?By Mouth?Daily Enoxaparin (enoxaparin 40 mg/0.4 mL injectable solution)?0.4?Milliliter?40?Milligram?Subcutaneous Injection?Daily?for 28?Days Fluticasone-Salmeterol (Wixela Inhub 100 mcg-50 mcg inhalation powder)?1?inhalation?Inhalation?2 times a day?rinse mouth and throat after use Gabapentin (gabapentin 300 mg oral capsule)?300?Milligram?1?capsule?By Mouth?Daily at bedtime Levothyroxine (levothyroxine 0.1 mg oral tablet)?1?tab(s)?100?Microgram?By Mouth?Daily Lisinopril (lisinopril 20 mg oral tablet)?20?Milligram?1?tablet?By Mouth?Daily Loperamide?2?Milligram?By Mouth?4 times a day?as needed?as needed for loose stool Metoprolol (Metoprolol Tartrate 25 mg oral tablet)?1?tab(s)?25?Milligram?By Mouth?Daily Naproxen (naproxen 500 mg oral delayed release tablet)?1?tab(s)?500?Milligram?By Mouth?2 times a day?as needed?Pain , Moderate Nicotine (Nicotine 7 mg/24 hour patch)?1?patch(es)?Topically?Daily Omeprazole (omeprazole 40 mg oral enteric coated capsule)?1?capsule?40?Milligram?By Mouth?Daily Oxygen?2 liters?Daily at bedtime Paroxetine (PARoxetine 40 mg oral tablet)?40?Milligram?1?tablet?By Mouth?Daily?for total of 50 mg daily Paroxetine (PARoxetine 10 mg oral tablet)?10?Milligram?1?tablet?By Mouth?Daily?for total of 50 mg daily Simvastatin (simvastatin 20 mg oral tablet)?20?Milligram?1?tablet?By Mouth?Daily at bedtime Tramadol (traMADol 50 mg oral tablet)?1?tab(s)?50?Milligram?By Mouth?Every 4 hours?as needed?Pain , Moderate umeclidinium (Incruse Ellipta 62.5 mcg/inh inhalation powder)?Inhalation?Every 24 hours ? Results Recent Labs BLOOD COUNT & DIFF WBC 20.5 k/mm3 (High)?? 08/03/2022 06:08 RBC 3.58 m/mm3 (Low)?? 08/03/2022 06:08 Hgb 8.5 Gm/dL (Low)?? 08/03/2022 06:08 Hct 27.7 % (Low)?? 08/03/2022 06:08 MCV 77.4 femtoliters (Low)?? 08/03/2022 06:08 MCH 23.7 pg (Low)?? 08/03/2022 06:08 MCHC 30.7 g/dL (Low)?? 08/03/2022 06:08 Platelet Count 522 k/mm3 (High)?? 08/03/2022 06:08 RDW-SD 50.4 femtoliters (High)?? 08/03/2022 06:08 MPV 9.4 femtoliters ()?? 08/03/2022 06:08 Nucleated RBC (Automated) 0.4 #/100 WBC'S ()?? 08/03/2022 06:08 Abs. NRBC 0.1 k/mm3 ()?? 08/03/2022 06:08 ?? CHEM GENERAL Sodium 136 mmol/L ()?? 08/03/2022 06:08 Potassium 4.5 mmol/L ()?? 08/03/2022 06:08 Chloride 100 mmol/L ()?? 08/03/2022 06:08 Bicarbonate Level 24 mmol/L ()?? 08/03/2022 06:08 Anion Gap 12 ()?? 08/03/2022 06:08 Glucose Level 70 mg/dL ()?? 08/02/2022 05:41 BUN 15 mg/dL ()?? 08/03/2022 06:08 Creatinine-Blood 0.6 mg/dL ()?? 08/03/2022 06:08 Estimated GFR Creatinine 100 ML/MIN/1.73 M2 ()?? 08/03/2022 06:08 Calcium 9.0 mg/dL ()?? 08/02/2022 05:41 Iron Level 19 mcg/dL (Low)?? 08/03/2022 06:08 Iron Binding Capacity, Unsaturated 336 mcg/dL ()?? 08/03/2022 06:08 Iron Binding Capacity, Estimated Total 355 mcg/dL ()?? 08/03/2022 06:08 % Iron Saturation 5 % (Low)?? 08/03/2022 06:08 Ferritin Level 41 ng/mL ()?? 08/03/2022 06:08 ?? VIROLOGY COVID-19 PCR Specimen Source NASAL ()?? 08/02/2022 09:00 COVID-19 PCR Result NEGATIVE ()?? 08/02/2022 09:00 ? Abnormal Labs ?? BLOOD COUNT & DIFF ??Abs. NRBC ??0.1 k/mm3 () ??08/03/2022 06:08 ??Hct ??27.7 % (Low) ??08/03/2022 06:08 ??Hgb ??8.5 Gm/dL (Low) ??08/03/2022 06:08 ??MCH ??23.7 pg (Low) ??08/03/2022 06:08 ??MCHC ??30.7 g/dL (Low) ??08/03/2022 06:08 ??MCV ??77.4 femtoliters (Low) ??08/03/2022 06:08 ??Nucleated RBC (Automated) ??0.4 #/100 WBC'S () ??08/03/2022 06:08 ??Platelet Count ??522 k/mm3 (High) ??08/03/2022 06:08 ??RBC ??3.58 m/mm3 (Low) ??08/03/2022 06:08 ??RDW-SD ??50.4 femtoliters (High) ??08/03/2022 06:08 ??WBC ??20.5 k/mm3 (High) ??08/03/2022 06:08 ? CHEM GENERAL ??% Iron Saturation ??5 % (Low) ??08/03/2022 06:08 ??Estimated GFR Creatinine ??100 ML/MIN/1.73 M2 () ??08/03/2022 06:08 ??Iron Level ??19 mcg/dL (Low) ??08/03/2022 06:08 ? Note: Critical results are displayed in red. ? CBC, CBC w/Diff?? CBC?? WBC:??20.5 k/mm3??High (06:08) RBC:??3.58 m/mm3??Low (06:08) Hct:??27.7 %??Low (06:08) RDW-SD:??50.4 femtoliters??High (06:08) Nucleated RBC (Automated): 0.4 #/100 WBC'S (06:08) Abs. NRBC: 0.1 k/mm3 (06:08) ? BMP, Mg, and Phos Anion Gap: 12 (06:08) Bicarbonate Level: 24 mmol/L (06:08) BUN: 15 mg/dL (06:08) Chloride: 100 mmol/L (06:08) Creatinine-Blood: 0.6 mg/dL (06:08) Estimated GFR Creatinine: 100 ML/MIN/1.73 M2 (06:08) Potassium: 4.5 mmol/L (06:08) Sodium: 136 mmol/L (06:08) ?? Coagulation Profile?? No qualifying data available. ?? LFT?? No qualifying data available. ?? Urinalysis?? No qualifying data available. ?? Microbiology ?? COVID-19, RSV, and Flu A/B, Rapid PCR?? Completed?? Source: Nasal Body Site: Nose Collected Dt/Tm: 07/29/2022 12:10 Last Updated Dt/Tm: 07/29/2022 19:50 MRSA PCR Nasal Swab?? Completed?? Source: Swab Body Site: Nares Both Collected Dt/Tm: 07/30/2022 02:22 Last Updated Dt/Tm: 07/30/2022 10:10 COVID-19 (2019 Novel Coronavirus) PCR?? Completed?? Source: Nasal Body Site: Nose Collected Dt/Tm: 08/02/2022 08:57 Last Updated Dt/Tm: 08/03/2022 00:10 ? Cardiology Labs Nt-Probnp:??356 pg/mL??High (07/29/22 13:00:00) High Sensitivity Troponin (HSTnT): 11 ng/L (07/29/22 14:26:00) High Sensitivity Troponin (HSTnT):??16 ng/L??High (07/29/22 12:22:00) ?? Blood Gases?? No qualifying data available. ?? * Naya Ocampo RN: PERFORM, SIGN, VERIFY Event Display: Progress Note Hospital Authored Date: [id number] Patient: TRENT PERDUE Age: 67 years Sex: Female : 1955 Associated Diagnoses: None Author: Naya Ocampo RN Findings Problem Related to Alteration in Gastrointestinal : Alteration in Gastrointestinal Func/new 08/02/2022 22:47 EST Alteration in GI status Related to Ostomy, GI Goals & Outcomes, Gastrointestinal Nutritional intake is adequate for metabolic needs, Pt will achieve normal/improved fluid balance, Ostomy will be functioning properly prior to D/C, Pt will correctly state/demonstrate applying ostomy pouch Interventions, Gastrointestinal Assess/monitor abdomen for distention, tenderness, Assess/monitor abdominal girth & bowel function, Assess/monitor bowel pattern, bowel sounds, flatus, Assess/monitor number of bowel movements, Assess/monitor color, quantity, quality, consistency of stoo, Assess/monitor pt for nausea, vomiting, Assess/monitor intake & output, Assess if pt tolerating diet, Taking PO: Encourage/monitor intake & swallowing ability, Assess & Monitor stoma & star-stomal, Provide proper appliance Goals/Interventions, Gastrointestinal Yes Gastrointestinal, Problem Start 08/02/2022 10:05 Reviewed plan with, Gastrointestinal Patient Patient Progression, Gastrointestinal Pt progressing according to plan . Alteration in Respiratory Function (new) : Alteration in Respiratory Function/new 08/02/2022 22:47 EST Alteration in Resp Status Related to COPD Goals & Outcomes, Respiratory Pt will maintain/resume baseline physical assessment, Pt will notdevelop complications r/t mechanical ventilation, Pt will maintain adequate nutritional intake, Pt will maintain/resume normal fluid/electrolyte balance, Pt will not develop complications r/t immobility, Pt will demonstrate proper technique w/self care procedures Interventions, Respiratory Assess for and report S&S of respiratory distress, Position for comfort & optimal oxygenation, Monitor sputum color & consistency. Report changes to MD Goals/Interventions, Respiratory Yes Respiratory, Problem Start 07/30/2022 5:00 Reviewed Plan with, Respiratory Patient Patient Progression, Respiratory Patient progressing according to plan . Falls Risk Assessment : Falls Data 08/02/2022 19:00 EST Fall Elimination Incontinent, Toileting Needs Increased Plan: Fall Elimination Monitor fluid intake & bladder & bowel activity Fall Agitation/Anxiety/Depression No impairment Fall Related Sign/Symptom/Condition None Fall Cognitive Limitations No impairment Fall Sensory and Physical Function Requires Staff Assistance with Transfer, Requires the Use of an Assistive Device, Three or more tubes/lines Plan: Fall Sensory and Physical Function Encourage safe activities to maintain strength & mobility Fall High Risk for Injury On Coumadin, IV Heparin, or Lovenox Total Falls Risk Score 16 Fall Risk Level High Risk Falls Prevention Plan for High Risk Apply yellow high fall risk wrist band to wrist, Ensure patienthas yellow non-skid slippers, Supervise patient in the bathroom & shower, Consider relocating patient closer to nurses' station, Activate bed exit alarm system, Evaluate footwear & ensure patient has non-skid slippers, Bed in lowest locked position, Provide patient/family falls prevention education, Place personal care items & call tam within reach, Instruct patient/family to requestassistance with ambulatio, Instruct patient/family not to get up without assistance, Supervise the patient when ambulating or making transfers, Check that needs are met to minimize attempts to get up, Hourly rounds, Ensure safe & uncluttered environment . Narrative/Incidental Patient is alert and oriented. She is normal sinus on the monitor and storage bin tender. Patient is acute with telemetry. She has a right sided ileostomy with mushy brown stool. Abdomen has a midline abdominal incision with amelie. . Note * Cherie Tubbs RN: PERFORM Event Display: Discharge/Transfer Note Hospital Authored Date: [id number] Nursing Discharge Note Entered On: 08/04/2022 14:01 EST Performed On: 08/04/2022 14:00 EST by Cherie Tubbs RN Nursing Discharge Note 2 Discharge Time : 08/04/2022 13:44 EST Discharge Level of Care at Discharge : Homehealth/VNA Discharge VNA/Hospice/Home Care(v001) : [facility] Patient Left Unit Via : Wheelchair Patient Accompanied Off Unit with : Responsible adult DC Instructions Provided & Signed by Pt : Yes Patient Understands D/C Instructions : Yes Verbalized Understanding of D/C Plan By : Patient Patient Instructions Discharge Signed : Yes Did Pt have Specialty Bed or Wound Vac : Yes Cherie Tubbs RN - 08/04/2022 14:00 EST * Kingsley Mccabe DO: PERFORM Event Display: Discharge/Transfer Note Hospital Authored Date: [id number] Patient: ??TRENT PERDUE ? Age:??67 Years?Sex:??Female?:??1955?? Patient Information Discharge Location: [facility] Primary Care Physician: Karma High DO Admit Date/Time: 07/29/22 15:19 Discharge date:??04 August 2022. Discharge Disposition Discharge Disposition: Home with Home Health Discharge Diagnosis Acute respiratory failure with hypoxia (J96.01) Asthma with COPD (J44.9) Anemia (D64.9) HTN (hypertension) (I10) Hypothyroidism (E03.9) HLD (hyperlipidemia) (E78.5) Depression (F32.A) COPD exacerbation (J44.1) ?? _ Discharge Medications Acetaminophen (acetaminophen 325 mg oral tablet)?975?Milligram?By Mouth?Every 6 hours?as needed?Pain , Mild Albuterol (ProAir HFA 90 mcg/inh inhalation aerosol)?2?puff(s)?Inhalation?4 times a day?as needed?as needed for wheezing Amlodipine (amLODIPine 10 mg oral tablet)?1?tab(s)?10?Milligram?By Mouth?Daily Cholecalciferol (Vitamin D3 1000 intl units oral capsule)?By Mouth?Daily Enoxaparin (enoxaparin 40 mg/0.4 mL injectable solution)?0.4?Milliliter?40?Milligram?Subcutaneous Injection?Daily?for 28?Days Fluticasone-Salmeterol (Wixela Inhub 100 mcg-50 mcg inhalation powder)?1?inhalation?Inhalation?2 times a day?rinse mouth and throat after use Gabapentin (gabapentin 300 mg oral capsule)?300?Milligram?1?capsule?By Mouth?Daily at bedtime Levothyroxine (levothyroxine 0.1 mg oral tablet)?1?tab(s)?100?Microgram?By Mouth?Daily Lisinopril (lisinopril 20 mg oral tablet)?20?Milligram?1?tablet?By Mouth?Daily Loperamide?2?Milligram?By Mouth?4 times a day?as needed?as needed for loose stool Metoprolol (Metoprolol Tartrate 25 mg oral tablet)?1?tab(s)?25?Milligram?By Mouth?Daily Naproxen (naproxen 500 mg oral delayed release tablet)?1?tab(s)?500?Milligram?By Mouth?2 times a day?as needed?Pain , Moderate Nicotine (Nicotine 7 mg/24 hour patch)?1?patch(es)?Topically?Daily Omeprazole (omeprazole 40 mg oral enteric coated capsule)?1?capsule?40?Milligram?By Mouth?Daily Oxygen?2 liters?Daily at bedtime Paroxetine (PARoxetine 40 mg oral tablet)?40?Milligram?1?tablet?By Mouth?Daily?for total of 50 mg daily Paroxetine (PARoxetine 10 mg oral tablet)?10?Milligram?1?tablet?By Mouth?Daily?for total of 50 mg daily PredniSONE (predniSONE 10 mg oral tablet)?See Instructions?Take 4 tablets for 2 days then 3 tablets for 2 days then 2 tablet for 2 days then 1 tablet for 2 days then stop Simvastatin (simvastatin 20 mg oral tablet)?20?Milligram?1?tablet?By Mouth?Daily at bedtime Tramadol (traMADol 50 mg oral tablet)?1?tab(s)?50?Milligram?By Mouth?Every 4 hours?as needed?Pain , Moderate umeclidinium (Incruse Ellipta 62.5 mcg/inh inhalation powder)?Inhalation?Every 24 hours ? Quality Measures Tobacco Use Treatment:? Medications Started Prednisone Medications Discontinued None Doses Changed None Allergies Allergies ?(Active and Proposed Allergies Only) Contrast Dye? (Severity: Unknown severity, Onset: Unknown) ?Reactions: rash codeine? (Severity: Unknown severity, Onset: Unknown) ?Reactions: vomiting ? Future Appointments 2022 2:00 PM EST ?? With: Where: [facility] [address] [place] [address] Drive [address] [place] [address]- Tuesday 10:40 AM EST ?? With: Shiva PONCE, Rex Castellon Where: [facility] [address] [place] [address] Drive [address] [place] [address]- Hospital Course This is a pleasant 67-year-old female. She been hospitalized at [facility]??on a previous admission which ended on??28 July 2022. During that admission (please see the discharge summary for details)??she had a complicated hospital course,??she had an exploratory laparotomy,??creation of loop ileost stevo??resection of her??rectum and sigmoid colon??and creation of a coloanal fistula.??She was managed by the??colorectal/surgical service, discharged on 28 July. She has COPD??and unfortunately was readmitted less than 24 hours after discharge. ?? Regarding this admission:??During this admission we focused on her respiratory issues. She was treated for acute hypoxemic respiratory failure, secondary to pneumonia aspiration and COPD exacerbation. She was treated with a combination of IV steroids and IV antibiotics. She finished her antibiotic course??and was tapered to oral prednisone. ?? Other active issues in the hospital:??Chronic issues include COPD nicotine dependence anxiety depression and hypothyroidism.??She was continued on her chronic medicines without changes. ?? Regarding her respiratory failure: Again after she finished antibiotics??she was tapered off of IV steroids and is now on oral steroids, she will be on a prednisone taper along with her usual inhalers which include??LABA, inhaled corticosteroid, and a long-acting muscarinic antagonist.??She will beon a prednisone taper starting at 40 mg. She will follow-up with her production proofreader. She has oxygen at home??and also portable oxygen help get her home, she assures me that she is ambulatory??and is demonstrated that she can walk in and out of her house. ?? Regarding her??loop ileostomy: She is leaving the hospital with a JULIO drain, she assures me that this is being removed on??05 August by her??colorectal surgeon she already has the appointment. She has visiting nurse services at home to help her with the ileostomy if needed. ?? She was seen and examined today on??04 August, she is awake alert with no complaints fevers chillschest pain shortness of breath nausea or vomiting. ?? See below for physical exam. We updated the patient's 24 hours before discharge, and updated the patient for discharge also and she is appropriate for discharge today. ?? More than 30??minutes preparing the patient for discharge, thank you for allowing us to follow yourpatient. ?? Objective Vital Signs?? Temperature: 98.3 DegF (08/04/22 06:00:00) Temperature Route: Oral (08/04/22 06:00:00) Pulse Rate: 89 bpm (08/04/22 06:00:00) Respiratory Rate:??32 br/min??High (08/04/22 06:00:00) Systolic Blood Pressure:??140 mm Hg??High (08/04/22 06:00:00) Diastolic Blood Pressure: 71 mm Hg (08/04/22 06:00:00) Blood pressure sites: Arm, left (08/04/22 02:00:00) Pulse Pressure: 69 mm Hg (08/04/22 06:00:00) Oxygen Saturation:??93 %??Low (08/04/22 06:00:00) Liters per Minute: 2 L/min (08/04/22 06:00:00) Mode of Delivery (Oxygen): Nasal cannula (08/04/22 06:00:00) Early Warning Score: 8 (08/04/22 06:42:08) SOFA Calculated: 2 (08/03/22 22:12:16) ? . Physical Exam General:??Alert and appropriate HEENT:??No scleral icterus Chest:??Clear bilaterally without wheezing rhonchi or rales CV:?Regular rate and rhythm no rubs murmurs or gallops Abdomen:Loop ileostomy is??brown liquid stool. Extremities:??no lower extremity edema Neurologic: Awake and alert??ambulatory independent in the room. Skin:??Warm and dry ? Consultants Colorectal surgery was consulted but no intervention was required. Pending Results Add On Lab Order ordered on 07/29/2022 Add On Lab Order ordered on 07/30/2022 Add On Lab Order ordered on 08/01/2022 Blood Culture ordered on 07/30/2022 Follow-Up Appointments Added Follow Up ?Time Frame ?Comments Karma High DO Patient Instructions Please follow-up with your colorectal surgeon and your??primary care physician and production proofreader Post Discharge Care Diet: Regular Diet Activity: Ambulate with assistance ??3 times a day ??unless otherwise specified Wound Care: Patient has nursing follow-up for [place]ah[place]acus rectal surgery, removal of JULIO drain, and ostomy help at home Code Status: ?? Full Resuscitation Condition: Good Home Health Face to Face *Denotes mandatory lopez ?? *I certify that this patient is under my care and that I or an allowed non- physician working with me had a face to face encounter with the patient on this date:??08/04/2022 07:39 ?? *The encounter with the patient was in whole, or in part, for the following medical condition, which is the primary diagnosis(es) for home health care:??Acute respiratory failure with hypoxia (J96.01) Asthma with COPD (J44.9) Anemia (D64.9) HTN (hypertension) (I10) Hypothyroidism (E03.9) HLD (hyperlipidemia) (E78.5) Depression (F32.A) COPD exacerbation (J44.1) ? *Select the indications for the discipline/s that are being arranged for this patient. Nursing (select all that apply): [_] None [_] Medication management (reconciliation, teaching)?? [x] Chronic disease management?? [x] Wound care and treatment?? [_] Home safety evaluation [_] Administer SQ/IM/IV medications?? [_] Cath care?? [_] Drain care?? [_] Trach or GT care?? Other _ Occupation Therapy (select all that apply): [_] None [_] ADL Management [_] Fall prevention training [_] Energy conservation [_] Cognitive training Other _ Physical Therapy (select all that apply): [_] None [x] Functional mobility training x_] Home exercise program to strengthen [_] Increase ROM?? [x] Falls prevention training [_] Home maintenance program for chronic disease Other _ Speech Therapy (select all that apply): [_] None [_] Swallow evaluation and training [_] Speech and language training [_] Cognitive training to process, organize, and/or recall information Other _ ? *Homebound due to (select all that apply): [x] Inability to leave home without assistance/supervision [_] Inability to ambulate without assistance [_] Pain [x] Decreased strength and endurance [_] Unsteady gait [_] Severe SOB and fatigue [_] Impaired transfers [_] Inability to negotiate stairs [_] Limited weight bearing [_] Mental status change? *Physician Signature:??Kingsley Mccabe, DO ?? *By signing this, I certify that I have personally evaluated the patient and agree with the findings and recommendations as documented above. ? hFTF Results Discharge Labs BACTERIOLOGY MRSA PCR Result Negative, MRSA target DNA not detected. ()?? 07/30/2022 02:30 S Aureus ??PCR Result Positive, SA target DNA detected. ()?? 07/30/2022 02:30 ?? BLOOD COUNT & DIFF WBC 20.5 k/mm3 (High)?? 08/03/2022 06:08 RBC 3.58 m/mm3 (Low)?? 08/03/2022 06:08 Hgb 8.5 Gm/dL (Low)?? 08/03/2022 06:08 Hct 27.7 % (Low)?? 08/03/2022 06:08 MCV 77.4 femtoliters (Low)?? 08/03/2022 06:08 MCH 23.7 pg (Low)?? 08/03/2022 06:08 MCHC 30.7 g/dL (Low)?? 08/03/2022 06:08 Platelet Count 522 k/mm3 (High)?? 08/03/2022 06:08 RDW-SD 50.4 femtoliters (High)?? 08/03/2022 06:08 MPV 9.4 femtoliters ()?? 08/03/2022 06:08 Nucleated RBC (Automated) 0.4 #/100 WBC'S ()?? 08/03/2022 06:08 Abs. NRBC 0.1 k/mm3 ()?? 08/03/2022 06:08 Abs. Neut 13.0 k/mm3 (High)?? 07/30/2022 08:55 Abs. Lymph 1.2 k/mm3 ()?? 07/30/2022 08:55 Abs. [place] 1.7 k/mm3 (High)?? 07/30/2022 08:55 Abs. Eo 0.0 k/mm3 ()?? 07/30/2022 08:55 Abs. Baso 0.0 k/mm3 ()?? 07/30/2022 08:55 Neut % 79.1 % (High)?? 07/30/2022 08:55 Lymph % 7.4 % (Low)?? 07/30/2022 08:55 [place] % 10.0 % ()?? 07/30/2022 08:55 Eos % 0.0 % ()?? 07/30/2022 08:55 Baso % 0.2 % ()?? 07/30/2022 08:55 RBC Morphology MODERATE ()?? 07/29/2022 13:00 Platelet Estimate ADEQUATE PLATELETS ()?? 07/29/2022 13:00 Hemoglobin (POC) POC Cartridge 11.9 Gm/dL ()?? 07/30/2022 20:13 Hematocrit (POC) POC Cartridge 35 % (Low)?? 07/30/2022 20:13 Imm Gran 3.3 % ()?? 07/30/2022 08:55 Abs. Imm Gran 0.6 k/mm3 ()?? 07/30/2022 08:55 ?? BLOOD GAS pH (POC) POC Cartridge 7.48 (High)?? 07/30/2022 20:13 pCO2 (POC) POC Cartridge 32.3 mm Hg (Low)?? 07/30/2022 20:13 pO2 (POC) POC Cartridge 73 mm Hg (Low)?? 07/30/2022 20:13 Estimated Bicarbonate (POC) POC Cart 23.9 mmol/L ()?? 07/30/2022 20:13 % O2 Sat Arterial (POC) POC Cartridge 96 % ()?? 07/30/2022 20:13 FIO2 (POC) POC Cartridge 30 % ()?? 07/30/2022 20:13 pH Venous (POC) POC Cartridge 7.64 (High)?? 07/29/2022 15:16 pCO2 Venous (POC) POC Cartridge 17.4 mm Hg (Low)?? 07/29/2022 15:16 pO2 Venous (POC) POC Cartridge 103 mm Hg (High)?? 07/29/2022 15:16 Est Bicarbonate (POC) POC Cartridge 18.7 mmol/L (Low)?? 07/29/2022 15:16 % O2 Sat Venous (POC) POC Cartridge 99 ()?? 07/29/2022 15:16 Base Excess (POC) POC Cartridge 0 ()?? 07/30/2022 20:13 pH 7.44 ()?? 07/30/2022 05:10 pCO2 32 mm Hg (Low)?? 07/30/2022 05:10 pO2 108 mm Hg (High)?? 07/30/2022 05:10 Bicarbonate, Estimated 22 mmol/L ()?? 07/30/2022 05:10 Specimen Type - Blood Gas ARTERIAL ()?? 07/30/2022 20:13 Percent O2 (FIO2) 40 ()?? 07/30/2022 05:10 ?? CARDIAC Nt-Probnp 356 pg/mL (High)?? 07/29/2022 13:00 High Sensitivity Troponin (HSTnT) 11 ng/L ()?? 07/29/2022 14:26 ?? CHEM GENERAL Sodium 136 mmol/L ()?? 08/03/2022 06:08 Potassium 4.5 mmol/L ()?? 08/03/2022 06:08 Chloride 100 mmol/L ()?? 08/03/2022 06:08 Bicarbonate Level 24 mmol/L ()?? 08/03/2022 06:08 Anion Gap 12 ()?? 08/03/2022 06:08 Sodium (POC) POC Cartridge 138 mmol/L ()?? 07/30/2022 20:13 Potassium (POC) POC Cartridge 3.6 mmol/L ()?? 07/30/2022 20:13 Glucose Level 70 mg/dL ()?? 08/02/2022 05:41 Glucose (POC) POC Cartridge 127 (High)?? 07/30/2022 20:13 Glucose, POC 123 mg/dL (High)?? 07/30/2022 20:14 BUN 15 mg/dL ()?? 08/03/2022 06:08 Creatinine-Blood 0.6 mg/dL ()?? 08/03/2022 06:08 Estimated GFR Creatinine 100 ML/MIN/1.73 M2 ()?? 08/03/2022 06:08 Calcium 9.0 mg/dL ()?? 08/02/2022 05:41 Calcium, Ionized pH Corrected 1.20 mmol/L ()?? 07/30/2022 08:55 Ionized Calcium (POC) POC Cartridge 1.22 mmol/L ()?? 07/30/2022 20:13 Phosphorus 2.9 mg/dL ()?? 07/30/2022 08:55 Magnesium 1.8 mg/dL ()?? 07/30/2022 08:55 Protein, Total 5.5 Gm/dL (Low)?? 07/29/2022 13:00 Albumin 3.1 Gm/dL (Low)?? 07/29/2022 13:00 AG Ratio 1.3 ()?? 07/29/2022 13:00 Alkaline Phosphatase 156 units/L (High)?? 07/29/2022 13:00 AST (SGOT) 33 units/L (High)?? 07/29/2022 13:00 ALT (SGPT) 21 units/L ()?? 07/29/2022 13:00 Bilirubin, Total 0.4 mg/dL ()?? 07/29/2022 13:00 Lactate 1.2 mmol/L ()?? 07/30/2022 05:46 Iron Level 19 mcg/dL (Low)?? 08/03/2022 06:08 Iron Binding Capacity, Unsaturated 336 mcg/dL ()?? 08/03/2022 06:08 Iron Binding Capacity, Estimated Total 355 mcg/dL ()?? 08/03/2022 06:08 % Iron Saturation 5 % (Low)?? 08/03/2022 06:08 Ferritin Level 41 ng/mL ()?? 08/03/2022 06:08 ? COAG APTT 51.8 seconds (High)?? 07/31/2022 06:51 D-Dimer 2.12 mg/L FEU (High)?? 07/29/2022 13:00 ?? ENDOCRINE/TUMOR MARKER TSH 0.52 uIU/mL ()?? 08/01/2022 00:49 Free T4 1.15 ng/dL ()?? 08/01/2022 00:49 ?? HEME OTHER Hold Blue Top SPECIMEN DISCARDED AFTER 4 HOURS. ()?? 07/29/2022 13:00 ? IMMUNOLOGY GENERAL Haptoglobin 367 mg/dL (High)?? 07/29/2022 13:00 ? MISC. CHEMISTRY Procalcitonin 0.37 ng/mL ()?? 07/30/2022 05:35 Hold Gel Top SPECIMEN DISCARDED AFTER 1 WEEK ()?? 07/30/2022 15:44 ?? SEROLOGY INF DISEASE Legionella pneumophila Antigen NEGATIVE ()?? 07/30/2022 18:02 S. Pneumococcus Urinary Ag NEGATIVE ()?? 07/30/2022 18:02 ?? UA/URINALYSIS Appear/Color, Urine LIGHT YELLOW ()?? 07/29/2022 18:17 Specific [place], Urine 1.008 ()?? 07/29/2022 18:17 pH, Urine 7.0 ()?? 07/29/2022 18:17 Albumin, Urine TRACE (Abnormal)?? 07/29/2022 18:17 Glucose, Urine NEGATIVE ()?? 07/29/2022 18:17 Ketones, Urine 1+ (Abnormal)?? 07/29/2022 18:17 Bilirubin, Urine NEGATIVE ()?? 07/29/2022 18:17 Hemoglobin, Urine NEGATIVE ()?? 07/29/2022 18:17 Nitrite, Urine NEGATIVE ()?? 07/29/2022 18:17 Leukocyte, Urine 2+ (Abnormal)?? 07/29/2022 18:17 Urobilinogen NORMAL mg/dL ()?? 07/29/2022 18:17 WBC's, Urine 1 /HPF ()?? 07/29/2022 18:17 RBC's, Urine NONE SEEN /HPF ()?? 07/29/2022 18:17 Bacteria SLIGHT HPF (Abnormal)?? 07/29/2022 18:17 Squamous Epith 3 /HPF ()?? 07/29/2022 18:17 Mucus SLIGHT /LPF ()?? 07/29/2022 18:17 Hold Urine Culture Testing available 48 hours from time of collection. ()?? 07/29/2022 18:17 ? VIROLOGY Influenza A PCR NEGATIVE ()?? 07/29/2022 18:04 Influenza B PCR NEGATIVE ()?? 07/29/2022 18:04 RSV PCR NEGATIVE ()?? 07/29/2022 18:04 COVID-19 PCR Specimen Source NASAL ()?? 08/02/2022 09:00 COVID-19 PCR Result NEGATIVE ()?? 08/02/2022 09:00 ? 30??minutes spent on discharge * Cherie Tubbs RN: PERFORM Event Display: Patient Education/Instruction Authored Date: [id number] Inpatient Adult Discharge Instructions [place] [id number] Name: TRENT PERDUE : 1955 Visit: 07/29/2022 15:19:00 Current Date: 08/04/2022 12:48 Account: [id number] Inpatient Adult Discharge Instructions We would like [...] and their families. Surveys are administered by [employer] ?? If further treatment with your primary care physician or another doctor is recommended, it is important for you to keep the appointment. Call your primary care physician or return to the Emergency Department immediately if your condition worsens, fails to improve, or new symptoms develop. If you need to find a doctor, you can call [facility] [employer] for a referral at [phone] or toll free at [phone]) or log in to [email or web address].. ?? You can view and manage your care through the patient portal or by using a health care artemio of your choosing. [employer] is a website that allows you to securely view your medical information including your hospital discharge summary, office visit summaries, medications and follow-up visits. You can also request appointments, renew medications, and request access to your medical information using a health care artemio of your choosing, or just ask a question. You can enroll at [email or web address] or register during your next office visit. You have been discharged from [facility], Patient Care Unit: SW5. If you have any questions regarding these instructions after you leave, please call us and we will be happy to assist you. [facility] Your Care Team Attending Physician Kingsley Mccabe DO Consulting Providers Rex Shannon MD Discharging Providers Kingsley Mccabe DO Reason for Admission Shortness of Breath Your Diagnosis COPD exacerbation Acute respiratory failure with hypoxia Hypothyroidism HTN (hypertension) HLD (hyperlipidemia) Depression Anemia Tests Performed Below is a partial list of the tests performed during your hospitalization. You may have had other tests and procedures not included in this list. Please discuss all test results with your provider. ABG ABG POC CARTRIDGE BASE EXCESS POC CARTRIDGE Basic Metabolic Panel BNP BUN CALCIUM IONIZED POC CART CBC CBC w/ Differential Comprehensive Metabolic Panel COVID-19 (2019 Novel Coronavirus) PCR COVID-19, RSV, and Flu A/B, Rapid PCR Creatinine D Dimer Electrolytes Ferritin FREE T4 GLUCOSE POC GLUCOSE POC CARTRIDGE HAPTOGLOBIN HEMATOCRIT POC CARTRIDGE HEMOGLOBIN POC CARTRIDGE High??Sensitivity??Troponin T Hold Blue Top Tube HOLD GEL TUBE Ionized Calcium Iron + Iron Binding Capacity Lactate Level Lytes Magnesium Level MRSA PCR Nasal Swab O2 PERCENT (POINT OF CARE) Phosphorus Level POTASSIUM POC CARTRIDGE Procalcitonin Level PTT SODIUM POC CARTRIDGE Strep Pneumoniae Urinary Ag Troponin T, High Sensitivity TSH Urinalysis w/hold for Urine Culture Urine Legionella Antigen VBG POC CARTRIDGE CT Angio Chest US Doppler Ext Lower Venous Bilat XR Chest Portable Primary Care Provider Karma High DO Advance Directive Health Care Proxy on File Yes - Health Care Proxy Discharge Vitals Temperature: 97.8 DegF Height: 160 cm Pulse Rate:??94 bpm??High Weight: 81.6 kg Respiratory Rate: 19 br/min Body Mass Index:??31.88 kg/m2??Critical Systolic Blood Pressure: 120 mm Hg Body surface area: 1.9 Diastolic Blood Pressure: 71 mm Hg ?? Oxygen Saturation: 95 % ?? Studies Pending All tests and labs ordered during this hospital stay have been completed unless listed below. Please discuss all pending results with your provider listed above in these instructions. ?? Add On Lab Order Blood Culture What to do next Instructions From Your Doctor Please follow-up with your colorectal surgeon and your??primary care physician and production proofreader Discharge Orders Diet:??Regular Diet Activity:??Ambulate with assistance 3 times a day unless otherwise specified Wound Care:??Patient has nursing follow-up for [place] rectal surgery, removal of JULIO drain, and ostomyhelp at home Code Status:?? Full Resuscitation Condition:??Good Scheduled Follow-Up Appointments Tuesday 10:40 AM EST ?? With: Shiva PONCE, Rex Castellon Where: [address] [place] [address]- You Need to Schedule the Following Appointments Follow Up with??Karma High DO When?? Where: ?? Discharge Medications TRENT PERDUE :1955 Visit Date:07/29/2022 Medications: Please continue your medications until treatment is completed or stopped by your provider. Medications not listed below should be discontinued. Discuss any questions related to medications with your provider. What How Much When Why Instructions Next Dose New PredniSONE (predniSONE 10 mg oral tablet) See instructions Take 4 tablets for 2 days then 3 tablets for 2 days then 2 tablet for 2 days then 1 tablet for 2 days then stop ?? Pickup at [facility] 3 2/9 AM Changed Albuterol (ProAir HFA 90 mcg/ inh inhalation aerosol) 2 puff(s) Inhalation 4 times a day as needed for as needed for wheezing as needed Changed Amlodipine (amLODIPine 10 mg oral tablet) 1 tab(s) Oral Daily 08/05 Changed Lisinopril (lisinopril 20 mg oral tablet) 1 tab(s) Oral Daily 08/05 AM Changed Metoprolol (Metoprolol Tartrate 25 mg oral tablet) 1 tab(s) Oral Daily 08/05 AM Changed Omeprazole (omeprazole 40 mg oral enteric coated capsule) 1 capsule Oral Daily 08/05 Changed Paroxetine (PARoxetine 10 mg oral tablet) 1 tab(s) Oral Daily for total of 50 mg daily ?? 08/05 AM Changed Paroxetine (PARoxetine 40 mg oral tablet) 1 tab(s) Oral Daily for total of 50 mg daily ?? 08/05 AM Changed Simvastatin (simvastatin 20 mg oral tablet) 1 tab(s) Oral Daily at Bedtime tonight Unchanged Acetaminophen (acetaminophen 325 mg oral tablet) 975 Milligram Oral Every 6 hours as needed for Pain , Mild Rectal prolapse as needed Unchanged Cholecalciferol (Vitamin D3 1000 intl units oral capsule) Oral Daily 08/05 Unchanged Enoxaparin (enoxaparin 40 mg/ 0.4 mL injectable solution) 0.4 Milliliter Subcutaneous Injection Daily Duration: 28 Days 08/05 Unchanged Fluticasone-Salmeterol (Wixela Inhub 100 mcg-50 mcg inhalation powder) 1 inhalation Inhalation Twice a day rinse mouth and throat after use ?? tonight Unchanged Gabapentin (gabapentin 300 mg oral capsule) 1 capsule Oral Daily at Bedtime tonight Unchanged Levothyroxine (levothyroxine 0.1 mg oral tablet) 1 tab(s) Oral Daily 08/05 Unchanged Loperamide 2 Milligram Oral 4 times a day as needed for as needed for loose stool as needed Unchanged Naproxen (naproxen 500 mg oral delayed release tablet) 1 tab(s) Oral Twice a day as needed for Pain , Moderate as needed Unchanged Nicotine (Nicotine 7 mg/ 24 hour patch) 1 patch(es) Topically Daily 08/05 Unchanged Oxygen 2 liters Daily at Bedtime continuous Unchanged Tramadol (traMADol 50 mg oral tablet) 1 tab(s) Oral Every 4 hours as needed for Pain , Moderate as needed Unchanged umeclidinium (Incruse Ellipta 62.5 mcg/ inh inhalation powder) Inhalation Every 24 hours 08/05 Pharmacy Information [facility]: [address] [place], [place] [id number] [phone] Test Results Below is a partial list of the most recent Laboratory test results done prior to this discharge. You may have had other tests and procedures not included in this list. Please discuss all test resultswith your provider. ABG (07/30/2022) ???pH - 7.44???pCO2 - 32 mm Hg???pO2 - 108 mm Hg???Bicarbonate, Estimated - 22 mmol/L???Specimen Type - Blood Gas - ARTERIAL???Percent O2 (FIO2) - 40 ABG POC CARTRIDGE (07/30/2022) ???pH (POC) POC Cartridge - 7.48???pCO2 (POC) POC Cartridge - 32.3 mm Hg???pO2 (POC) POC Cartridge - 73 mm Hg???Estimated Bicarbonate (POC) POC Cart - 23.9 mmol/L???% O2 Sat Arterial (POC) POC Cartridge - 96 %???Specimen Type - Blood Gas - ARTERIAL BASE EXCESS POC CARTRIDGE (07/30/2022) ???Base Excess (POC) POC Cartridge - 0 Basic Metabolic Panel (08/02/2022) ???Sodium - 138 mmol/L???Potassium - 4.1 mmol/L???Chloride - 102 mmol/L???Bicarbonate Level - 25 mmol/L???Anion Gap - 11???Glucose Level - 70 mg/dL???BUN - 12 mg/dL???Creatinine-Blood - 0.6 mg/dL???Estimated GFR Creatinine - 98 ML/MIN/1.73 M2???Calcium - 9.0 mg/dL BNP (07/29/2022) ???Nt-Probnp - 356 pg/mL BUN (08/03/2022) ???BUN - 15 mg/dL CALCIUM IONIZED POC CART (07/30/2022) ???Ionized Calcium (POC) POC Cartridge - 1.22 mmol/L CBC (08/03/2022) ???WBC - 20.5 k/mm3???RBC - 3.58 m/mm3???Hgb - 8.5 Gm/dL???Hct - 27.7 %???MCV - 77.4 femtoliters???MCH - 23.7 pg???MCHC - 30.7 g/dL???Platelet Count - 522 k/mm3???RDW-SD - 50.4 femtoliters???MPV - 9.4 femtoliters???Nucleated RBC (Automated) - 0.4 #/100 WBC'S???Abs. NRBC - 0.1 k/mm3 CBC w/ Differential (07/30/2022) ???WBC - 16.4 k/mm3???RBC - 3.34 m/mm3???Hgb - 7.9 Gm/dL???Hct - 25.4 %???MCV - 76.0 femtoliters???MCH - 23.7 pg???MCHC - 31.1 g/dL???Platelet Count - 330 k/mm3???RDW-SD - 50.4 femtoliters???MPV - 10.1 femtoliters???Nucleated RBC (Automated) - 0.1 #/100 WBC'S???Abs. NRBC - 0.0 k/mm3???Abs. Neut - 13.0 k/mm3???Abs. Lymph - 1.2 k/mm3???Abs. [place] - 1.7 k/mm3???Abs. Eo - 0.0 k/mm3???Abs. Baso - 0.0 k/mm3???Neut % - 79.1 %???Lymph % - 7.4 %???[place] % - 10.0 %???Eos % - 0.0 %???Baso % - 0.2 %???Imm Gran - 3.3 %???Abs. Imm Gran - 0.6 k/mm3 Comprehensive Metabolic Panel (07/29/2022) ???Sodium - 136 mmol/L???Potassium - 3.7 mmol/L???Chloride - 99 mmol/L???Bicarbonate Level - 21 mmol/L???Anion Gap - 16???Glucose Level - 94 mg/dL???BUN - 6 mg/dL???Creatinine-Blood - 0.5 mg/dL???Estimated GFR Creatinine - 100 ML/MIN/1.73 M2???Calcium - 9.0 mg/dL???Protein, Total - 5.5 Gm/dL???Album in - 3.1 Gm/dL???AG Ratio - 1.3???Alkaline Phosphatase - 156 units/L???AST (SGOT) - 33 units/L???ALT (SGPT) - 21 units/L???Bilirubin, Total - 0.4 mg/dL COVID-19 (2019 Novel Coronavirus) PCR (08/02/2022) ???COVID-19 PCR Specimen Source - NASAL???COVID-19 PCR Result - NEGATIVE COVID-19, RSV, and Flu A/B, Rapid PCR (07/29/2022) ???Influenza A PCR - NEGATIVE???Influenza B PCR - NEGATIVE???RSV PCR - NEGATIVE???COVID-19 PCR Specimen Source - NASAL???COVID-19 PCR Result - NEGATIVE Creatinine (08/03/2022) ???Creatinine-Blood - 0.6 mg/dL???Estimated GFR Creatinine - 100 ML/MIN/1.73 M2 D Dimer (07/29/2022) ???D-Dimer - 2.12 mg/L FEU Electrolytes (08/03/2022) ???Sodium - 136 mmol/L???Potassium - 4.5 mmol/L???Chloride - 100 mmol/L???Bicarbonate Level - 24 mmol/L???Anion Gap - 12 Ferritin (08/03/2022) ???Ferritin Level - 41 ng/mL FREE T4 (08/01/2022) ???Free T4 - 1.15 ng/dL GLUCOSE POC (07/30/2022) ???Glucose, POC - 123 mg/dL GLUCOSE POC CARTRIDGE (07/30/2022) ???Glucose (POC) POC Cartridge - 127 HAPTOGLOBIN (07/29/2022) ???Haptoglobin - 367 mg/dL HEMATOCRIT POC CARTRIDGE (07/30/2022) ???Hematocrit (POC) POC Cartridge - 35 % HEMOGLOBIN POC CARTRIDGE (07/30/2022) ???Hemoglobin (POC) POC Cartridge - 11.9 Gm/dL High??Sensitivity??Troponin T (07/29/2022) ???High Sensitivity Troponin (HSTnT) - 16 ng/L Hold Blue Top Tube (07/29/2022) ???Hold Blue Top - SPECIMEN DISCARDED AFTER 4 HOURS. HOLD GEL TUBE (07/30/2022) ???Hold Gel Top - SPECIMEN DISCARDED AFTER 1 WEEK Ionized Calcium (07/30/2022) ???Calcium, Ionized pH Corrected - 1.20 mmol/L Iron + Iron Binding Capacity (08/03/2022) ???Iron Level - 19 mcg/dL???Iron Binding Capacity, Unsaturated - 336 mcg/dL???Iron Binding Capacity, Estimated Total - 355 mcg/dL???% Iron Saturation - 5 % Lactate Level (07/30/2022) ???Lactate - 1.2 mmol/L Lytes (07/30/2022) ???Sodium - 138 mmol/L???Potassium - 4.0 mmol/L???Chloride - 104 mmol/L???Bicarbonate Level - 24 mmol/L???Anion Gap - 10 Magnesium Level (07/30/2022) ???Magnesium - 1.8 mg/dL MRSA PCR Nasal Swab (07/30/2022) ???MRSA PCR Result - Negative, MRSA target DNA not detected.???S Aureus PCR Result - Positive, SA target DNA detected. O2 PERCENT (POINT OF CARE) (07/30/2022) ???FIO2 (POC) POC Cartridge - 30 % Phosphorus Level (07/30/2022) ???Phosphorus - 2.9 mg/dL POTASSIUM POC CARTRIDGE (07/30/2022) ???Potassium (POC) POC Cartridge - 3.6 mmol/L Procalcitonin Level (07/30/2022) ???Procalcitonin - 0.37 ng/mL PTT (07/31/2022) ???APTT - 51.8 seconds SODIUM POC CARTRIDGE (07/30/2022) ???Sodium (POC) POC Cartridge - 138 mmol/L Strep Pneumoniae Urinary Ag (07/30/2022) ???S. Pneumococcus Urinary Ag - NEGATIVE Troponin T, High Sensitivity (07/29/2022) ???High Sensitivity Troponin (HSTnT) - 11 ng/L TSH (08/01/2022) ???TSH - 0.52 uIU/mL Urinalysis w/hold for Urine Culture (07/29/2022) ???Appear/Color, Urine - LIGHT YELLOW???Specific [place], Urine - 1.008???pH, Urine - 7.0???Albumin, Urine - TRACE???Glucose, Urine - NEGATIVE???Ketones, Urine - 1+???Bilirubin, Urine - NEGATIVE???Hemoglobin, Urine - NEGATIVE???Nitrite, Urine - NEGATIVE???Leukocyte, Urine - 2+???Urobilinogen - NORMAL???WBC's, Urine - 1 /HPF???RBC's, Urine - NONE SEEN???Bacteria - SLIGHT???Squamous Epith - 3 /HPF???Mucus - SLIGHT???Hold Urine Culture - Testing available 48 hours from time of collection. Urine Legionella Antigen (07/30/2022) ???Legionella pneumophila Antigen - NEGATIVE VBG POC CARTRIDGE (07/29/2022) ???pH Venous (POC) POC Cartridge - 7.64???pCO2 Venous (POC) POC Cartridge - 17.4 mm Hg???pO2 Venous(POC) POC Cartridge - 103 mm Hg???Est Bicarbonate (POC) POC Cartridge - 18.7 mmol/L???% O2 Sat Venous (POC) POC Cartridge - 99???Specimen Type - Blood Gas - VENOUS Allergies (NKA means No Known Allergies) Contrast Dye??(rash) codeine??(vomiting) Problems Active Problems??(24) Anxiety?? Asthma?? Asthma with COPD?? COVID-19?? Current smoker?? Degenerative Disc Disease?? Depression?? Depression?? Elevated Cholesterol?? Failed back syndrome?? FH: Ischemic heart disease?? GERD?? Hemorrhoids?? HLD (hyperlipidemia)?? HTN?? HTN (hypertension)?? Hyperlipids?? Hypothyroid?? Hypothyroidism?? Lumbar spinal stenosis?? Obese class I?? Obesity?? Rectal prolapse?? T MJ?? Education Materials Below is the list of Educational Leaflet Providered with your Discharge Instructions. Valuables and Belongings I fully understand and agree that [facility] accepts no responsibility for all my personal [...] Valuable and Belonging List: With patient, With witness Disposition of Belongings: Sent home with patient/family Date for Pt to Sign Valuables/Belongings: 07/30/22 02:16:00 ?? Other Discharge Information ?? Wound Assessment?? Wound Assessment?? Wound Location I: Buttocks, Left Wound Type I: Blister ?? Case Management Discharge Plan?? Discharge Plan?? Discharge Agency Information?? Discharge Level of Care at Discharge: Homehealth/VNA Agency Building Cleaner #1: Intake Mode of Transportation Arranged: Other Service Categories #1: Physical Therapy, [facility] Discharge VNA/Hospice/Home Care: [facility] Comments #1: A nurse will call you to arrange a home visit. ??Please call the agency with any questions. ?? Pulmonary Rehab Status?? Pulmonary Rehab Discharge Status?? CPAP/BiPAP Mask Type: Nasal CPAP/BiPAP Mask Size: Large Respiratory Rate: 19 br/min ? Common Emergency Awareness Tips IS [...] are strongly encouraged to quit. Please call [facility] [employer] Link at [phone] or [phone]-[employer] ([phone]) or log in to [email or web address] for referrals to smoking cessation programs. ?? The National Suicide Prevention Hotline is available 17/01 if you or someone you know needs to find a reason to keep living. By calling 6-452-480-[employer] (2336) you'll be connected to a skilled, trained counselor at a crisis center in your area. INPATIENT DISCHARGE INSTRUCTIONS SIGNATURE PAGE TRENT PERDUE Location:[facility] Registration Date and Time:07/29/2022 15:19 EST Primary Care Physician: Karma High DO, I TRENT PERDUE, have received the above patient education materials/instructions and have verbalized understanding. If ambulance or transport services are being used I further acknowledge being givena choice of service. ?? If you need to contact me, please call me at this number: . Patient/Complementary Health Therapists Name: Patient/Complementary Health Therapists Signature: Relationship to Patient: Witness Name/Signature: Date: US.doppler Lower extremity vein - bilateral * [facility] , CIS S: TRANSCRIBE Lani Cross MD: VERIFY Event Display: Result: Authored Date: [id number] US Doppler Ext Lower Venous Bilat Refer to EMR: Leg pain. COMPARISON: None IMAGING TECHNIQUE: Ultrasound of the veins from the groin through the calf was performed using grayscale, color, and spectral Doppler ultrasound assessing for complete compressibility and normal flowcharacteristics. FINDINGS: RIGHT LOWER EXTREMITY: Common femoral vein: Patent. No thrombosis. Femoral vein: Patent. No thrombosis. Popliteal vein: Patent. No thrombosis. Gastrocnemius veins: The visualized portions are patent without evidence of thrombosis. Peroneal veins: The visualized portions are patent without evidence of thrombosis. Posterior tibial veins: The visualized portions are patent without evidence of thrombosis. LEFT LOWER EXTREMITY: Common femoral vein: Patent. No thrombosis. Femoral vein: Patent. No thrombosis. Popliteal vein: Patent. No thrombosis. Gastrocnemius veins: The visualized portions are patent without evidence of thrombosis. Peroneal veins: The visualized portions are patent without evidence of thrombosis. Posterior tibial veins: The visualized portions are patent without evidence of thrombosis. OTHER FINDINGS: Within the right popliteal fossa there is a complex cystic structure measuring 6.1 x 1.9 x 3 cm without internal vascularity. IMPRESSION: 1. No evidence of deep venous thrombosis. 2. 6.1 cm complex right Vieira's cyst. WSN: [id number] Ordering Physician: Xiomy Gama Dictated By: Lani Cross MD Dictated Date/Time: 07/30/22 12:07 p Reviewed By: Lani Cross MD Signed By: Lani Cross MD Signed Date/Time: 07/30/22 12:07 pm Transcribed By: ART Transcribed Date/Time: 07/30/22 12:05 pm CTA Chest vessels W contrast IV * [facility] , CIS S: TRANSCRIBE Nicole PONCE, Devrim: VERIFY Event Display: Result: Authored Date: EXAMINATION: CT Angio Chest INDICATION: Increased oxygen requirement. Increased shortness of breath. Reason: Other:; PE suspected, low prob, unknown D-dimer; Clinical Question(s): Pulmonary Embolism; Order Comment: TECHNIQUE: Spiral CTA of the chest was performed after rapid IV contrast administration without cardiac gating, triggered by an DELILAH on the main pulmonary artery. Images are formatted in multiple planes using 2-D multiplanar and 3-D maximum intensity projection. 50 cc of Omnipaque 300 was administered intravenously. Weight-based protocol using automatic tube modulation was used to optimize exposure parameters. CTDIvol Body: 6.20 mGy, DLP Body: 298 mGy*cm. COMPARISONS: None. ANGIOGRAPHIC FINDINGS: No pulmonary embolism to the subsegmental level. Normal caliber pulmonary arteries. No acute aortic abnormality seen on this study performed without cardiac gating. Mild atherosclerotic calcifications in the aorta. NON-ANGIOGRAPHIC FINDINGS: Crisis Worker View Findings, Lines and Tubes: Epidural electrodes terminate at the T9 level. Trachea and Airways: Patent without evidence of tracheal or endobronchial lesion. Lungs and Pleura: Upper lobe predominant interlobular thickening with poorly defined groundglass opacities with possible underlying mild centrilobular emphysema. Mild dependent atelectasis in lower lobes. No effusion or pneumothorax. Mediastinum and gilbert: No mass or hematoma. No mediastinal or hilar lymphadenopathy. No esophageal abnormality. Heart: Heart is normal in size. No pericardial effusion. Mild coronary artery calcification. Chest Wall Soft Tissues: Normal. Diaphragm and upper abdomen: No significant abnormality. Bones: No acute abnormality. Bilateral glenohumeral osteoarthritis, left worse than right. IMPRESSION: 1. No evidence of pulmonary embolism. 2. Upper lobe predominant interlobular septal thickening and groundglass opacities are nonspecific.The differential diagnosis includes hypersensitivity pneumonitis, as before with pneumonia, and atypical infection (not typical of Covid-19 pneumonia). Follow-up with nonemergent high-resolution chest CT is recommended. A critical result message (Yellow) has been communicated via the [employer] system on 07/30/2022 10:42 PM, Message ID [id number]. WSN: [id number] Ordering Physician: Do, Vi T Dictated By: Jacquie Rivera MD Dictated Date/Time: 07/30/22 10:42 p Reviewed By: Jacquie Rivera MD Signed By: Jacquie Rivera MD Signed Date/Time: 07/30/22 10:42 pm Transcribed By: ART Transcribed Date/Time: 07/30/22 10:30 pm Portable XR Chest Views * [facility] , CIS S: TRANSCRIBE Jennyfer Goodman MD: SIGN Jenny Alvarado MD: VERIFY Event Display: Result: Authored Date: [id number] Chest Portable HX OF PRESENT ILLNESS: Patient presented via [facility] from home, patient was d c yesterday with new ileostomy. VNA found patient's o2 sat in the 80s on her baseline 2L via [place]. ALbuterol inhaler at home with no improvement. ALbuterol neb en route with 6L via [place] COMPARISON: 07/25/2022 and multiple priors. FINDINGS: Overlying tubing material limits evaluation. LINES AND TUBES: Partially visualized spinal stimulator device projecting over the mid/lower thoracic vertebra. LUNGS AND PLEURA: Mild central pulmonary vascular congestion and diffuse interstitial prominence. There are right greater than left lower lobe patchy opacities. No pleural effusion. No pneumothorax. HEART, MEDIASTINUM AND GILBERT: Heart is normal in size. Aorta is calcified. BONES AND SOFT TISSUES: No acute abnormality. IMPRESSION: 1. Mild pulmonary congestion/edema. 2. Persistent right greater than left lower lobe patchy opacities, superimposed pneumonia cannot beexcluded. I have personally reviewed the images and I agree with this report. WSN: [id number] Ordering Physician: Xiomy Gama Dictated By: Jennyfer Goodman MD Dictated Date/Time: 07/29/22 3:13 pm Reviewed By: Jenny Alvarado MD Signed By: Jenny Alvarado MD Signed Date/Time: 07/29/22 3:18 pm Transcribed By: ART Transcribed Date/Time: 07/29/22 3:07 pm Patient Care team information Care Team Personnel Name: Geetha Jurado RN Position: S RN Member Role: Primary Care Nurse Name: Meghan Thapa RN Position: S RN Member Role: Primary Care Nurse Name: Kristin Sands RN Position: [facility] RN Member Role: Primary Care Nurse Name: Mariana London RN Position: [facility] RN Member Role: Primary Care Nurse Name: Karma High DO Position: [facility] Physician (General Medicine) Member Role: PCP Address: Address: [address] [place] [address] Name: Josh Fletcher RN Position: [facility] RN Member Role: Primary Care Nurse Name: Leyla Chua RN Position: [facility] RN Member Role: Primary Care Nurse Name: Naya Ocampo RN Position: [facility] RN Member Role: Primary Care Nurse Name: Timur KINSEY Attending Position: [facility] ED Medicine MD Name: Arely Young RN Position: [facility] ED RN W/OE and Tasks Member Role: Patient Care Provider Name: Linh Rendon Position: [facility] ED OA Charge Member Role: ED Associate Care Team Related Persons Name: ABE CAST Address: home [address] [place] [id number] Name: SAUMYA MAX Address: [place] [address]
--- OUTSIDE RECORDS SUMMARY | 2023-07-06 09:33 | XMS_ITS | Continuity of Care Document ---
Author Name Unknown Organization [facility] ter Address [address] [place] [id number]- Care Team Providers Care Central Scheduler Name Role Phone Cameron Dayana Karma Primary Care Nicole valentine Encounter [facility] Date(s): 07/28/22 - 08/27/[address] [address]- Attending Physician: Not on Staff, Attending MD [...] influenza virus vaccine, inactivated 04/19/14 Kenny rded [id number] 12y+ bivalent booster vax 04/18/22 Recorded SARS-CoV-2 [...] Start Date: 07/29/22 Status: Ordered [employer] bags #55852 [employer]oplast bags #78595, See Instructions, # 20 each, Refills 11, [...] 0 Refills, Maintenance, 07/28/22 13:18:00 EST, Patch, [facility], Partial fill upon patient request if [...] capsule, 0 Refills, Maintenance, 08/04/22 7:21:00 EST, [facility] 3, Partial fill upon patient request... [...] 0 Refills, Maintenance, 07/28/22 13:17:00 EST, Tablet, [facility] 3, Partial fill upon patient request if [...] Team Personnel Name: Geetha Jurado RN Position: [facility] RN Member Role: Primary Care Nurse Name: Meghan Thapa RN Position: [facility] RN Member Role: Primary Care Nurse Name: Kristin Sands RN Position: [facility] RN Member Role: Primary Care Nurse Name: Mariana London RN Position: [facility] RN Member Role: Primary Care Nurse Name: Karma High DO Position: [facility] Physician (General Medicine) Member Role: PCP Address: Address: [address] [place] [address]- Name: Leyla Chua RN Position: [facility] RN Member Role: Primary Care Nurse Name: Naya Ocampo RN Position: [facility] RN Member Role: Primary Care Nurse Care Team Related Persons Name: ABE CAST Address: [address] [address] Name: SAUMYA MAX Address: [place] [address]
--- OUTSIDE RECORDS SUMMARY | 2023-07-06 09:33 | XMS_ITS | Continuity of Care Document ---
Author Name Unknown Organization [facility] ter Address [address] [place] [id number]- Care Team Providers Care Precipitator Operator Name Role Phone WilfredoelianeKarma Sun DO Primary Care Nicole valentine Encounter [facility] Date(s): 07/23/22 - 07/28/[address] [address]- Discharge Disposition: A-Transfer VNA/Home Health Attending Physician: Rex Shannon MD Admitting Physician: Rex Shannon MD Referring Physician: Rex Shannon MD Allergies, Adverse Reactions, Alerts Substance Reaction Severity Status codeine vomiting Active Contrast Dye rash Active Immunizations Given and Recorded Vaccine Date Status Refusal Reason SARS-CoV-2 (COVID-19) mRNA BNT-162b2 vac 11/07/20 Given SARS-CoV-2 (COVID-19) mRNA BNT-162b2 vac 10/17/20 Given Medications acetaminophen 325 mg oral tablet 975 mg, By Mouth, Every 6 hours, Refills 0, Maintenance, 07/28/22 11:13:00 EST, Partial fill upon patient request if the prescription is for a schedule II opioid drug. Start Date: 07/28/22 Status: Ordered Albuterol 2.5, mg, Neb, Every 4 hours, Scheduled / PRN, 0, 0, 07/03/08 14:02:09, as needed for wheezing, Print ANTIONE Number, [id number] Start Date: 07/03/08 Status: Ordered Amlodipine = 10 mg, By Mouth, Daily, 0 Refills, Maintenance, 02/24/18 11:49:59 EDT Start Date: 02/24/18 Status: Ordered amLODIPine 10 mg oral tablet 10 mg, Tablet, By Mouth, 07/28/22 9:00:00 EST Start Date: 07/28/22 Stop Date: 07/28/22 Status: Completed amoxicillin-clavulanate 875 mg-125 mg oral tablet 1 tablet, By Mouth, 2 times a day, for 3 days, # 6 tablet, 0 Refills, Acute 07/31/22 13:18:00 EST, 07/28/22 13:18:00 EST, Tablet, [facility], Partial fill upon patient request if the prescription is for a schedule II opioid drug., 160, c... Start Date: 07/28/22 Stop Date: 07/31/22 Status: Ordered enoxaparin 40 mg/0.4 mL injectable solution 0.4 mL = 40 mg, Subcutaneous Injection, Daily, for 28 days, # 11.2 mL, 0 Refills, Acute 08/25/22 13:19:00 EST, 07/28/22 13:19:00 EST, Injection, [facility], Partial fill upon patient request if the prescription is for a schedule II opioi... Start Date: 07/28/22 Stop Date: 08/25/22 Status: Ordered gabapentin 300 mg oral capsule 300 mg, 1, capsule, By Mouth, Daily at bedtime, Refills 0, Maintenance, 07/20/22 8:52:00 EST, Partial fill upon patient request if the prescription is for a schedule II opioid drug. Start Date: 07/20/22 Status: Ordered gabapentin 300 mg oral capsule 300 mg, Capsule, By Mouth, 07/27/22 21:00:00 EST Start Date: 07/27/22 Stop Date: 07/27/22 Status: Completed Incruse Ellipta 62.5 mcg/inh inhalation powder Inhalation, [...] metoprolol 25 mg oral tablet 25 mg, 1, tablet, By Mouth, Daily, # 180 tablet, Refills 0, Maintenance, 07/21/22 9:28:00 EST, Partial fill upon patient request if the prescription is for a schedule II opioid drug. Start Date: 07/21/22 Status: Ordered metoprolol 25 mg oral tablet 25 mg, Tablet, By Mouth, 07/28/22 9:00:00 EST Start Date: 07/28/22 Stop Date: 07/28/22 Status: Completed Nicotine 7 mg/24 hour patch 1 patch, Topically, Daily, # 30 patch, 0 Refills, Maintenance, 07/28/22 13:18:00 EST, Patch, [facility], Partial fill upon patient request if the prescription is for a schedule II opioid drug., 1 patch Topically Daily, 160, cm, 07/27/22... Start Date: 07/28/22 Status: Ordered Omeprazole = 40 mg, By Mouth, Daily, 0 Refills, Maintenance, 02/24/18 11:51:30 EDT Start Date: 02/24/18 Status: Ordered Oxygen 2 liters, Daily at bedtime, 0 Refills, Maintenance Start Date: 07/31/10 Status: Ordered Paroxetine = 50 mg, By Mouth, Daily at bedtime, 0 [...] 11:55:59 EDT Start Date: 02/24/18 Status: Ordered traMADol 50 mg oral tablet 1 tablet = 50 mg, By Mouth, Every 4 hours, PRN Pain , Moderate, # 12 tablet, 0 Refills, Maintenance, 07/28/22 13:17:00 EST, Tablet, [facility], Partial fill upon patient request if [...] Chronic obstructive pulmonary disease 1 Confirmed Active COVID-19 Confirmed Active Current smoker Confirmed Active FH: Ischemic heart disease Confirmed Active Hemorrhoids Confirmed Active HLD (hyperlipidemia) Confirmed Active HTN (hypertension) Confirmed Active Obese class I Confirmed Active Rectal prolapse Confirmed Active 1oxygen x 8 hrs at night for HS wheezing Results Radiology Reports * Exam Date Time Procedure Performing Provider Status 07/25/22 11:01 PM Chest Portable Cedillo , Arcadio; Auth (Ve rified) Notes: (Chest Portable) Reason For Exam: desating;Other: RESULT: Chest Portable Chest Portable Reason: Desaturating; Clinical Question(s): Pneumonia COMPARISON: CXR 07/23/2022, 10/23/2017 FINDINGS: LINES AND TUBES: Partially visualized spinal stimulator in place. LUNGS AND PLEURA: Improved airspace opacities in the right lower lung, with a residual patchy opacity. The left lung is clear. Normal pulmonary vascularity. No pleural effusion. No pneumothorax. HEART, MEDIASTINUM AND QASIM: Heart is normal in size. Normal mediastinal and hilar contour. BONES AND SOFT TISSUES: No acute abnormality. IMPRESSION: Improving right basilar opacities. I have personally reviewed the images and I agree with this report. WSN: [id number] Ordering Physician: Greer Madison Dictated By: Troy Panchal MD Dictated Date/Time: 07/25/22 11:11 p Reviewed By: Kwesi Chambers MD Signed By: Viscomi MD, Kwesi Signed Date/Time: 07/25/22 11:16 pm Transcribed By: ART Transcribed Date/Time: 07/25/22 11:09 pm * Exam Date Time Procedure Performing Provider Status 07/23/22 7:27 PM Chest Portable Alf Welsh; Rahda (Jenifer ified) Notes: (Chest Portable) Reason For Exam: Other: RESULT: Chest Portable Chest Portable Reason: Other:; Clinical Question(s): Other: / Other: COMPARISON: 10/23/2017 FINDINGS: LINES AND TUBES: Partially visualized spinal stability. LUNGS AND PLEURA: Right lower lobe and to a lesser extent left lower lobe airspace opacity. The central pulmonary vasculature is prominent and indistinct. No pleural effusion. No pneumothorax. HEART, MEDIASTINUM AND QASIM: Heart is normal in size. Normal mediastinal and hilar contour. BONES AND SOFT TISSUES: No acute abnormality. IMPRESSION: 1. Pulmonary vascular congestion. 2. Right worse than left lower lobe airspace opacity could be due to atelectasis, pneumonia, or aspiration. WSN: [id number] Ordering Physician: Leisa Kamara Dictated By: Daniel Burt MD Dictated Date/Time: 07/23/22 8:03 pm Reviewed By: Daniel Burt MD Signed By: Daniel Burt MD Signed Date/Time: 07/23/22 8:03 pm Transcribed By: ART Transcribed Date/Time: 07/23/22 8:02 pm Vital Signs Most recent to oldest [Reference Range]: 1 2 3 Height 160.0 cm (07/27/22 11:13 PM) 160.0 cm (07/27/22 4:30 PM) 160.0 cm (07/24/22 9:59 AM) Weight 83 kg (07/27/22 2:00 AM) 77.5 kg (07/24/22 9:59 AM) 77.5 kg (07/23/22 8:33 PM) Oxygen Saturation [94-100 %] 97 % (07/28/22 11:00 AM) 96 % (07/28/22 8:00 AM) 95 % (07/28/22 6:00 AM) Pulse Rate [55-90 bpm] 90 bpm (07/28/22 11:00 AM) 84 bpm (07/28/22 8:49 AM) 90 bpm (07/28/22 6:00 AM) Body Mass Index [18.5-24.99 kg/m2] 30.27 kg/m2 *>HHI* (07/24/22 9:59 AM) 29.88 kg/m2 *H* (07/23/22 1:45 PM) Blood Pressure [90-138/55-84 mm Hg] 137/74mm Hg (07/28/22 11:00 AM) 121/75mm Hg (07/28/22 8:49 AM) 121/75mm Hg (07/28/22 8:49 AM) Respiratory Rate [16-30 br/min] 24 br/min (07/28/22 11:00 AM) 18 br/min (07/28/22 8:00 AM) 22 br/min (07/28/22 2:27 AM) Temperature [96.8-100.4 DegF] 98.2 DegF (07/28/22 11:00 AM) 98.0 DegF (07/28/22 6:00 AM) 98.1 DegF (07/28/22 4:00 AM) Liters per Minute 4 L/min (07/28/22 11:00 AM) 5 L/min (07/28/22 8:00 AM) 5 L/min (07/28/22 6:00 AM) Mode of Delivery (Oxygen) Other: hearn (07/28/22 11:00 AM) Oxyhood (07/28/22 8:00 AM) Oxyhood (07/28/22 6:00 AM) Blood pressure sites Arm, right (07/28/22 11:00 AM) Arm, right (07/28/22 6:00 AM) Arm, right (07/28/22 4:00 AM) Temperature Route Oral (07/28/22 11:00 AM) Oral (07/28/22 6:00 AM) Oral (07/28/22 4:00 AM) Dry Weight 76.5 kg (07/23/22 1:45 PM) 78.8 kg (07/21/22 9:43 AM) Weight Obtained Via Bed scale (07/23/22 8:33 PM) Standing scale (07/23/22 1:45 PM) Dry Weight Obtained Via Standing scale (07/23/22 1:45 PM) Social History Social History Type Response Smoking Status 10 or more cigarette s (1/2 pack or more)/day in last 30 days entered on: 07/20/22 Sex History and physical note * Event Display: History and Physical Hospital Authored Date: Note * Steffi Moser RN: PERFORM Event Display: Discharge/Transfer Note Hospital Authored Date: Nursing Discharge Note Entered On: 07/28/2022 15:12 EST Performed On: 07/28/2022 15:10 EST by Steffi Moser RN Nursing Discharge Note 2 Discharge Time : 07/28/2022 15:00 EST Discharge Level of Care at Discharge : Homehealth/VNA Discharge VNA/Hospice/Home Care(v001) : [facility] Patient Left Unit Via : Wheelchair Patient Accompanied Off Unit with : Significant other, Other: staff DC Instructions Provided & Signed by Pt : Yes Patient Understands D/C Instructions : Yes Patient Instructions Discharge Signed : Yes Discharge Comments : patient educated and questions answered r/t discharge. all belongings sent home with patient. scripts sent electronically to [facility]. Did Pt have Specialty Bed or Wound Vac : No Steffi Moser RN - 07/28/2022 15:10 EST * Jaky Underwood: PERFORM Event Display: Discharge/Transfer Note Hospital Authored Date: Patient: ??TRENT PERDUE ? Age:??67 Years?Sex:??Female?:??1955?? 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 She was admittedon 07/23/22 for elective surgery and underwent a Delorme procedure for rectal prolapse.??Overnight pt was noted to have some passage of blood clots??as well as??coughing episodes with shortness of breath, secondary to her longstanding COPD.?The following morning pt was fond to have recurrence of her rectal prolapse as well as small bowel evisceration??through the anus, no ischemic changes were noted to the small bowel.?? The rectum was able to be reduced through the anal canal however, the small bowel remained??eviscerated through the anus. She was taken urgently to the OR for emergent exploratory laparotomy and found to have a 3 cm full-thickness rectal injury proximal to the mucosal repair. She underwent a perineal rectosigmoidectomy with coloanal anastomosis and diverting loop ileostomy. There were no complications. NGT and JULIO drain were placed intraoperatively and pt was started on Zosyn. The following day her ostomy was noted to have bilious output, NGT was removed. Her diet was slowly advanced and tolerated. Pt noted to have increased O2 needs and was followed closely by Respiratory team for breathing treatments. She was also seen by the Pulmonary team to assess home O2 needs with initial recs for 5L at rest and 8L with activity. This improved over the next few days and final recommendation was made for 2L O2 with activity, no oxygen required at rest. Pt has large O2 tank at home??that she uses??at night. Eleazar chowdary delivered portable tank to pt's room??prior to her discharge. Pt participated in ostomy teaching with enterostomal nurses and diet education with ostomy nurses. Imodium handout was provided and reviewed with patient and family. They were instructedto record her daily ostomy output and refer to handout if output becomes greater than 1200mls/24hrsto prevent dehydration. On HD5 pt was cleared for discharge to home with VNA services and provided with scripts for Lovenox, Tramadol, Augmentin (3days), Nicotine patches, ostomy supplies and Imodium. Her JULIO drain remained in place at the time of her discharge. She was instructed to f/u in the surgery office on 08/05/22 at 10:40am for nursing staple removal/drain evaluation appointment and on 08/23/22 at 2:00pm for a follow-up visit with Dr. Shannon. Future Appointments 2022 2:00 PM EST ?? With: Where: [facility] [address] [place] [address] Drive [address] [place] [address]- Tuesday 10:40 AM EST ?? With: Shiva PONCE, Rex N Where: [address] [place] [address]- Patient Discharge Condition Good Discharge Disposition Home with services Home Health Face to Face *Denotes mandatory lopez ?? *I certify that this patient is under my care and that I or an allowed non- physician working with me had a face to face encounter with the patient on this date:??07/28/2022 11:05 ?? *The encounter with the patient was in whole, or in part, for the following medical condition, which is the primary diagnosis(es) for home health care:??COPD - Chronic obstructive pulmonary disease (J44.9) Current smoker (F17.200) HLD (hyperlipidemia) (E78.5) HTN (hypertension) (I10) Obese class I (Z68.30) Rectal prolapse (K62.3) ? *Select the indications for the discipline/s that are being arranged for this patient. Nursing (select all that apply): [_] None [x] Medication management (reconciliation, teaching)?? [_] Chronic disease management?? [_] Wound care and treatment?? [_] Home safety evaluation [x] Administer SQ/IM/IV medications: Lovenox 40mg SQ daily x 28 days?? [_] Cath care?? [X] Drain care: JULIO to bulb suction, record daily output?? [_] Trach or GT care?? Other: Ileostomy care and education Occupation Therapy (select all that apply): [X] None [_] ADL Management [_] Fall prevention training [_] Energy conservation [_] Cognitive training Other _ Physical Therapy (select all that apply): [_] None [X] Functional mobility training [X] Home exercise program to strengthen [_] Increase ROM?? [_] Falls prevention training [X] Home maintenance program for chronic disease Other _ Speech Therapy (select all that apply): [X] None [_] Swallow evaluation and training [_] Speech and language training [_] Cognitive training to process, organize, and/or recall information Other _ ? *Homebound due to (select all that apply): [x] Inability to leave home without assistance/supervision [x] Inability to ambulate without assistance [_] Pain [x] Decreased strength and endurance [_] Unsteady gait [x] Severe SOB and fatigue [_] Impaired transfers [_] Inability to negotiate stairs [_] Limited weight bearing [_] Mental status change? *Physician Signature: Dr. Shannon ?? *By signing this, I certify that I have personally evaluated the patient and agree with the findings and recommendations as documented above. ? F Inpatient Medications Medications (20) Active SCHEDULED: (14) Acetaminophen 325 mg Tablet (Acetaminophen Tablet) ??975 mg, By Mouth, Every 6 hours Albuterol/Ipratropium Inhalation Maddie 3mL (Duoneb Inhalation Solution) ??1 vials, BAND Nebulizer, 4 times a day Amlodipine 10 mg Tablet (amLODIPine 10 mg oral tablet) ??10 mg, By Mouth, Daily Amoxicillin 875 mg/Clavulanate 125 mg Tablet (Augmentin 875 Tablet) ??1 tablet, By Mouth, 2 times aday Enoxaparin 40 mg Inj (Enoxaparin Inj) ??40 mg 0.4 mL, Subcutaneous Injection, Daily Gabapentin 300 mg Capsule (gabapentin 300 mg oral capsule) ??300 mg, By Mouth, Daily at bedtime Ketorolac 30 mg/mL Inj (Toradol Inj) ??15 mg 0.5 mL, IV Push Slowly, Every 6 hours Levothyroxine 100 mcg Tablet (levothyroxine 0.1 mg oral tablet) ??100 mcg, By Mouth, Daily Metoprolol 25mg Tablet (metoprolol 25 mg oral tablet) ??25 mg, By Mouth, Daily Nicotine 7 mg / 24 hour Patch (Nicotine Topical) ??7 mg, Topically, Daily Pantoprazole 40 mg EC Tablet (Protonix 40 mg oral delayed release tablet) ??40 mg, By Mouth, 2 times a day Phos-NaK Oral Powder ??1 pack/packet, By Mouth, 2 times a day Remove Patch (Remove ??Patch) ??1 each, Topically, Daily Simvastatin 20 mg Tablet (simvastatin 20 mg oral tablet) ??20 mg, By Mouth, Daily at bedtime CONTINUOUS: (0) PRN: (6) Albuterol 90mcg/Inhalation Inhaler HFA (albuterol CFC free 90 mcg/inh inhalation aerosol) ??180 mcg2 puffs, Inhalation, Every 4 hours Calcium Carbonate 500 mg (Calcium 200 mg) Chewable Tablet (Tums 500 mg oral tablet, chewable) ??500mg 1 tablet, Chew, Every 4 hours Diazepam 5 mg Tablet (Valium Tablet) ??5 mg, By Mouth, Every 8 hours nalOXONE ??400mcg/mL Inj (nalOXONE Inj) ??0.1 mg 0.25 mL, IV Push Slowly, Every 5 minutes TraMADOL 50 mg Tablet (Tramadol Tablet) ??50 mg, By Mouth, Every 4 hours TraMADOL 50 mg Tablet (traMADol 50 mg oral tablet) ??50 mg, By Mouth, Every 4 hours Discharge Medications Acetaminophen (acetaminophen 325 mg oral tablet)?975?Milligram?By Mouth?Every 6 hours Albuterol?2.5?Milligram?Neb?Every 4 hours?as needed?as needed for wheezing Albuterol (ProAir HFA 90 mcg/inh inhalation aerosol)?2?puff(s)?Inhalation?4 times a day?as needed?as needed for wheezing Amlodipine?10?Milligram?By Mouth?Daily Amoxicillin-Clavulanate (amoxicillin-clavulanate 875 mg-125 mg oral tablet)?1?tab(s)?By Mouth?2 times a day?for 3?Days Cholecalciferol (Vitamin D3 1000 intl units oral capsule)?By Mouth?Daily Enoxaparin (enoxaparin 40 mg/0.4 mL injectable solution)?0.4?Milliliter?40?Milligram?Subcutaneous Injection?Daily?for 28?Days Fluticasone-Salmeterol (Wixela Inhub 100 mcg-50 mcg inhalation powder)?1?inhalation?Inhalation?2 times a day?rinse mouth and throat after use Gabapentin (gabapentin 300 mg oral capsule)?300?Milligram?1?capsule?By Mouth?Daily at bedtime Levothyroxine (levothyroxine 0.1 mg oral tablet)?1?tab(s)?100?Microgram?By Mouth?Daily Lisinopril?20?Milligram?By Mouth?Daily at bedtime Loperamide?2?Milligram?By Mouth?4 times a day?as needed?as needed for loose stool Metoprolol (metoprolol 25 mg oral tablet)?25?Milligram?1?tablet?By Mouth?Daily Nicotine (Nicotine 7 mg/24 hour patch)?1?patch(es)?Topically?Daily Omeprazole?40?Milligram?By Mouth?Daily Oxygen?2 liters?Daily at bedtime Paroxetine?50?Milligram?By Mouth?Daily at bedtime Simvastatin?20?Milligram?By Mouth?Daily at bedtime Tramadol (traMADol 50 mg oral tablet)?1?tab(s)?50?Milligram?By Mouth?Every 4 hours?as needed?Pain , Moderate umeclidinium (Incruse Ellipta 62.5 mcg/inh inhalation powder)?Inhalation?Every 24 hours Labs Last 24 Hours BLOOD COUNT & DIFF ? Event Name?? Event Result?? Date/Time?? WBC 10.9 k/mm3 07/28/22 04:59:00 RBC 3.46 m/mm3??Low 07/28/22 04:59:00 Hgb 8.4 Gm/dL??Low 07/28/22 04:59:00 Hct 26.9 %??Low 07/28/22 04:59:00 MCV 77.7 femtoliters??Low 07/28/22 04:59:00 MCH 24.3 pg??Low 07/28/22 04:59:00 MCHC 31.2 g/dL??Low 07/28/22 04:59:00 Platelet Count 304 k/mm3 07/28/22 04:59:00 MPV 10.4 femtoliters 07/28/22 04:59:00 Nucleated RBC (Automated) 0 #/100 WBC'S 07/28/22 04:59:00 ? CHEM GENERAL ? Event Name?? Event Result?? Date/Time?? Sodium 139 mmol/L 07/28/22 04:59:00 Chloride 106 mmol/L 07/28/22 04:59:00 Bicarbonate Level 25 mmol/L 07/28/22 04:59:00 Anion Gap 8 07/28/22 04:59:00 Glucose Level 112 mg/dL??High 07/28/22 04:59:00 BUN 5 mg/dL??Low 07/28/22 04:59:00 Creatinine-Blood 0.6 mg/dL 07/28/22 04:59:00 Calcium, Ionized pH Corrected 1.18 mmol/L 07/28/22 04:59:00 Phosphorus 1.7 mg/dL??Low 07/28/22 04:59:00 Magnesium 1.9 mg/dL 07/28/22 04:59:00 ? Patient Education Titles Enoxaparin Prefilled Syringe?? Discharge Instructions: Caring for Your Tono-Crenshaw Drainage Tube?? Follow-Up Appointments Added Follow Up ?Time Frame ?Comments Shiva PONCE, Rex Castellon?08/23/2022 10:40?Postop visit [facility] Nurse?08/05/2022 14:00?Nursing visitfor staple/drain removal. Patient Instructions Colorectal Patients Discharge Instructions For Dr. Carty, Dr. Shannon, Dr. Ash & Dr. Gonzalez/Main office phone [phone]?Avoid strenuous activity until the follow-up appointment with your MD. ?No lifting greater than 5-10 pounds. ?? (5 lbs is a bag of sugar) ?No driving until completely off??narcotic pain medication and when cleared with your MD. ?Light walking is allowed and encouraged. ?Daily showering is allowed and encouraged. ?Continue to use your incentive spirometer at home, (as you did in the hospital) until the follow-up appointment with your MD. ?No bathing, No swimming and No hot tubs until the follow-up appointment with your MD. ?If your ileostomy output increases to more than ??1200mls??per day and is very watery then begin to follow the guidelines for Loperamide use provided for you upon discharge.? Signs and Symptoms of Infection: ??Call MD office for these:?Fever over 101 degrees ?Increasing redness & swelling of incisions ?Pus or foul smelling drainage coming from your incisions. ?Increasing pain at your incision sites unrelieved by pain medication. Call MD office for: ?Persistent nausea and vomiting. ?If your abdomen is getting increasingly bloated, firm and painful. ?Increasing abdominal pain that is not relieved by your pain medication. ?If your ileostomy STOPS regularly producing gas and stool. ?If your ileostomy is functioning too much, over a liter of liquid stool in a day despite following the all the steps of the Loperamide Guidelines. ?If you need to change your ileostomy pouch frequently due to leaking stool or because the skin under the wafer is becoming raw, wet and painful.?If the color of your stoma becomes deep purple or black. ?If your stoma seems to have pulled away from the skin or has receded into the skin. ??Guidelines??for??Loperamide (Imodium??) Use with Ileostomy?? 1.??Monitor, measure, and record your output from your ileostomy ??at home. ??Note: You may have a Visiting Nurse to assist you after discharge. 2.??Your goal should be to keep the output??thick and pasty??and??LESS THAN??1200mls??per day. 3.??If your??output INCREASES to MORE THAN??1200mls??a day??and is??very watery: a.??Start by taking ONE (1) tablet of loperamide (Imodium??) in the morning and at night. ??TOTAL DAILY DOSE: 2 tablets (2 tablets = 4mg) 4.??If your??output??CONTINUES??to be MORE THAN??1200mls??per day,??increase to ONE (1) tablet of loperamide (Imodium??) before each meal (breakfast lunch and dinner) and before bedtime. ??TOTAL DAILY DOSE: 4 tablets (4 tablets = 8mg) 5.??If your??output CONTINUES??to be MORE THAN??1200mls?per day, increase to TWO (2) tablets of??loperamide (Imodium??) before each meal (breakfast lunch and dinner) and before bedtime. ??TOTAL DAILY DOSE: 8 tablets (8 tablets = 16mg), Note: this is the MAXIMUM dose per day. 6.??If your??output CONTINUES??to be MORE THAN??1200mls??per day??(thin and watery): Call your surgeon???s office. ?? a.??You may need additional or different antidiarrheals if your output continues to be high on the maximum dose of loperamide (Imodium??) * Steffi Moser RN: PERFORM, MODIFY Event Display: Patient Education/Instruction Authored Date: Inpatient Adult Discharge Instructions [address] [address] Name: TRENT PERDUE : 1955 Visit: 07/23/2022 11:30:00 Current Date: 07/28/2022 14:16 Account: [id number] Inpatient Adult Discharge Instructions We would like [...] and their families. Surveys are administered by [employer] ?? If further treatment with your primary care physician or another doctor is recommended, it is important for you to keep the appointment. Call your primary care physician or return to the Emergency Department immediately if your condition worsens, fails to improve, or new symptoms develop. If you need to find a doctor, you can call [facility] [employer] for a referral at [phone] or toll free at [phone]) or log in to [email or web address].. ?? You can view and manage your care through the patient portal or by using a health care artemio of your choosing. [employer] is a website that allows you to securely view your medical information including your hospital discharge summary, office visit summaries, medications and follow-up visits. You can also request appointments, renew medications, and request access to your medical information using a health care artemio of your choosing, or just ask a question. You can enroll at [email or web address] or register during your next office visit. You have been discharged from [facility], Patient Care Unit: SW5. If you have any questions regarding these instructions after you leave, please call us and we will be happy to assist you. [facility] Your Care Team Attending Physician Shiva PONCE, Rex Castellon Consulting Providers Shiva PONCE, Rex Castellon; China PONCE, William Quintana MD, Alem Johnson Discharging Providers Prosper GRIER, Jaky John Reason for Admission RECTAL PROLAPSE FAJARDO URVASHI Your Diagnosis Rectal prolapse COPD - Chronic obstructive pulmonary disease Current smoker HLD (hyperlipidemia) HTN (hypertension) Obese class I Tests Performed Below is a partial list of the tests performed during your hospitalization. You may have had other tests and procedures not included in this list. Please discuss all test results with your provider. ART BLOOD GAS BUN CBC CBC w/ Differential COVID-19 (2019 Novel Coronavirus) PCR Creatinine Electrolytes Glucose Level GLUCOSE POC HOLD LAVENDER TUBE Ionized Calcium Magnesium Level Phosphorus Level Type and Screen CXR Portable Primary Care Provider Karma High DO Advance Directive Health Care Proxy on File Yes - Health Care Proxy Discharge Vitals Temperature: 98.2 DegF Height: 160 cm Pulse Rate: 90 bpm Weight: 83 kg Respiratory Rate: 24 br/min Body Mass Index:??30.27 kg/m2??Critical Systolic Blood Pressure: 137 mm Hg Body surface area: 1.86 Diastolic Blood Pressure: 74 mm Hg ?? Oxygen Saturation: 97 % ?? Studies Pending All tests and labs ordered during this hospital stay have been completed unless listed below. Please discuss all pending results with your provider listed above in these instructions. ?? BUN CBC Creatinine Electrolytes Glucose Level Ionized Calcium Magnesium Level Pathology Tissue Request () Phosphorus Level RBCs for Surgery What to do next Instructions From Your Doctor Colorectal Patients Discharge Instructions For Dr. Carty, Dr. Shannon, Dr. Ash & Dr. Gonzalez/Main office phone [phone]?Avoid strenuous activity until the follow-up appointment with your MD. ?No lifting greater than 5-10 pounds. ?? (5 lbs is a bag of sugar) ?No driving until completely off??narcotic pain medication and when cleared with your MD. ?Light walking is allowed and encouraged. ?Daily showering is allowed and encouraged. ?Continue to use your incentive spirometer at home, (as you did in the hospital) until the follow-up appointment with your MD. ?No bathing, No swimming and No hot tubs until the follow-up appointment with your MD. ?If your ileostomy output increases to more than ??1200mls??per day and is very watery then begin to follow the guidelines for Loperamide use provided for you upon discharge.? Signs and Symptoms of Infection: ??Call MD office for these:?Fever over 101 degrees ?Increasing redness & swelling of incisions ?Pus or foul smelling drainage coming from your incisions. ?Increasing pain at your incision sites unrelieved by pain medication. Call MD office for: ?Persistent nausea and vomiting. ?If your abdomen is getting increasingly bloated, firm and painful. ?Increasing abdominal pain that is not relieved by your pain medication. ?If your ileostomy STOPS regularly producing gas and stool. ?If your ileostomy is functioning too much, over a liter of liquid stool in a day despite following the all the steps of the Loperamide Guidelines. ?If you need to change your ileostomy pouch frequently due to leaking stool or because the skin under the wafer is becoming raw, wet and painful.?If the color of your stoma becomes deep purple or black. ?If your stoma seems to have pulled away from the skin or has receded into the skin. ??Guidelines??for??Loperamide (Imodium??) Use with Ileostomy?? 1.??Monitor, measure, and record your output from your ileostomy ??at home. ??Note: You may have a Visiting Nurse to assist you after discharge. 2.??Your goal should be to keep the output??thick and pasty??and??LESS THAN??1200mls??per day. 3.??If your??output INCREASES to MORE THAN??1200mls??a day??and is??very watery: a.??Start by taking ONE (1) tablet of loperamide (Imodium??) in the morning and at night. ??TOTAL DAILY DOSE: 2 tablets (2 tablets = 4mg) 4.??If your??output??CONTINUES??to be MORE THAN??1200mls??per day,??increase to ONE (1) tablet of loperamide (Imodium??) before each meal (breakfast lunch and dinner) and before bedtime. ??TOTAL DAILY DOSE: 4 tablets (4 tablets = 8mg) 5.??If your??output CONTINUES??to be MORE THAN??1200mls?per day, increase to TWO (2) tablets of??loperamide (Imodium??) before each meal (breakfast lunch and dinner) and before bedtime. ??TOTAL DAILY DOSE: 8 tablets (8 tablets = 16mg), Note: this is the MAXIMUM dose per day. 6.??If your??output CONTINUES??to be MORE THAN??1200mls??per day??(thin and watery): Call your surgeon???s office. ?? a.??You may need additional or different antidiarrheals if your output continues to be high on the maximum dose of loperamide (Imodium??) Discharge Orders Scheduled Follow-Up Appointments 2022 2:00 PM EST ?? With: Where: [facility] [address] [place] [address] [address] [place] [address]- Tuesday 10:40 AM EST ?? With: Rex Shannon MD Where: [facility] [address] [place] [address] [address] [place] [address]- You Need to Schedule the Following Appointments Follow Up with??Rex Shannon MD When??08/23/2022 10:40 AM EST Why: Postop visit Where: [address] [place] [address], [address] [place] [address]- Follow Up with??[facility] Nurse When??08/05/2022 02:00 PM EST Why: Nursing visit for staple/drain removal. Where: [address] [place] [address] , [address] [place], [place] Discharge Medications TRENT PERDUE :1955 Visit Date:07/23/2022 Medications: Please continue your medications until treatment is completed or stopped by your provider. Medications not listed below should be discontinued. Discuss any questions related to medications with your provider. What How Much When Why Instructions Next Dose New Acetaminophen (acetaminophen 325 mg oral tablet) 975 Milligram Oral Every 6 hours Rectal prolapse 07/28 4pm New Amoxicillin-Clavulanate (amoxicillin-clavulanate 875 mg-125 mg oral tablet) 1 tab(s) Oral Twice a day Duration: 3 Days Pickup at [place] [address] 07/28 8pm New Enoxaparin (enoxaparin 40 mg/ 0.4 mL injectable solution) 0.4 Milliliter Subcutaneous Injection Daily Duration: 28 Days Pickup at [place] [address] 07/29 9am New Nicotine (Nicotine 7 mg/ 24 hour patch) 1 patch(es) Topically Daily Pickup at [place] [address] 07/29 9am New Tramadol (traMADol 50 mg oral tablet) 1 tab(s) Oral Every 4 hours as needed for Pain , Moderate Pickup at [place] [address] 07/29 4pm Unchanged Albuterol 2.5 Milligram Nebulized inhalation Every 4 hours as needed for as needed for wheezing as needed Unchanged Albuterol (ProAir HFA 90 mcg/ inh inhalation aerosol) 2 puff(s) Inhalation 4 times a day as needed for as needed for wheezing as needed Unchanged Amlodipine 10 Milligram Oral Daily 07/29 9am Unchanged Cholecalciferol (Vitamin D3 1000 intl units oral capsule) Oral Daily 07/29 9am Unchanged Fluticasone-Salmeterol (Wixela Inhub 100 mcg-50 mcg inhalation powder) 1 inhalation Inhalation Twice a day rinse mouth and throat after use ?? 07/28 4pm Unchanged Gabapentin (gabapentin 300 mg oral capsule) 1 capsule Oral Daily at Bedtime 07/28 9pm Unchanged Levothyroxine (levothyroxine 0.1 mg oral tablet) 1 tab(s) Oral Daily 07/29 9am Unchanged Lisinopril 20 Milligram Oral Daily at Bedtime 07/28 9pm Unchanged Loperamide 2 Milligram Oral 4 times a day as needed for as needed for loose stool 07/28 as needed Unchanged Metoprolol (metoprolol 25 mg oral tablet) 1 tab(s) Oral Daily 07/29 9am Unchanged Omeprazole 40 Milligram Oral Daily 07/29 9am Unchanged Oxygen 2 liters Daily at Bedtime home schedule Unchanged Paroxetine 50 Milligram Oral Daily at Bedtime 07/28 9pm Unchanged Simvastatin 20 Milligram Oral Daily at Bedtime 07/28 9pm Unchanged umeclidinium (Incruse Ellipta 62.5 mcg/ inh inhalation powder) Inhalation Every 24 hours follow home schedule Pharmacy Information [facility]: [address], [place] [id number] [phone] Test Results Below is a partial list of the most recent Laboratory test results done prior to this discharge. You may have had other tests and procedures not included in this list. Please discuss all test resultswith your provider. RBC Available - RE (07/24/2022) RBC Unit ID - [id number] (07/24/2022) ART BLOOD GAS (07/23/2022) ???pH - 7.34???pCO2 - 44 mm Hg???pO2 - 96 mm Hg???Bicarbonate, Estimated - 23 mmol/L???Specimen Type - Blood Gas - ARTERIAL BUN (07/28/2022) ???BUN - 5 mg/dL CBC (07/28/2022) ???WBC - 10.9 k/mm3???RBC - 3.46 m/mm3???Hgb - 8.4 Gm/dL???Hct - 26.9 %???MCV - 77.7 femtoliters???MCH - 24.3 pg???MCHC - 31.2 g/dL???Platelet Count - 304 k/mm3???RDW-SD - 51.6 femtoliters???MPV - 10.4 femtoliters???Nucleated RBC (Automated) - 0.0 #/100 WBC'S???Abs. NRBC - 0.0 k/mm3 CBC w/ Differential (07/25/2022) ???WBC - 16.1 k/mm3???RBC - 3.72 m/mm3???Hgb - 8.8 Gm/dL???Hct - 29.4 %???MCV - 79.0 femtoliters???MCH - 23.7 pg???MCHC - 29.9 g/dL???Platelet Count - 261 k/mm3???RDW-SD - 50.5 femtoliters???MPV - 10.1 femtoliters???Nucleated RBC (Automated) - 0.0 #/100 WBC'S???Abs. NRBC - 0.0 k/mm3???Abs. Neut - 12.2 k/mm3???Abs. Lymph - 2.0 k/mm3???Abs. Hamilton - 1.7 k/mm3???Abs. Eo - 0.0 k/mm3???Abs. Baso - 0.0 k/mm3???Neut % - 75.8 %???Lymph % - 12.6 %???Hamilton % - 10.8 %???Eos % - 0.1 %???Baso % - 0.1 %???Imm Gran - 0.6 %???Abs. Imm Gran - 0.1 k/mm3 COVID-19 (2019 Novel Coronavirus) PCR (07/26/2022) ???COVID-19 PCR Specimen Source - NASAL???COVID-19 PCR Result - NEGATIVE Creatinine (07/28/2022) ???Creatinine-Blood - 0.6 mg/dL???Estimated GFR Creatinine - 97 ML/MIN/1.73 M2 Electrolytes (07/28/2022) ???Sodium - 139 mmol/L???Potassium - 4.3 mmol/L???Chloride - 106 mmol/L???Bicarbonate Level - 25 mmol/L???Anion Gap - 8 Glucose Level (07/28/2022) ???Glucose Level - 112 mg/dL GLUCOSE POC (07/26/2022) ???Glucose, POC - 141 mg/dL HOLD LAVENDER TUBE (07/24/2022) ???Hold Lavender Top - SPECIMEN DISCARDED AFTER 24 HOURS. Ionized Calcium (07/28/2022) ???Calcium, Ionized pH Corrected - 1.18 mmol/L Magnesium Level (07/28/2022) ???Magnesium - 1.9 mg/dL Phosphorus Level (07/28/2022) ???Phosphorus - 1.7 mg/dL Type and Screen (07/24/2022) ???Blood Type - O Positive???Antibody Screen - Negative Allergies (NKA means No Known Allergies) Contrast Dye??(rash) codeine??(vomiting) Problems Active Problems??(21) Anxiety?? Asthma?? COPD - Chronic obstructive pulmonary disease?? COVID-19?? Current smoker?? Degenerative Disc Disease?? Depression?? Elevated Cholesterol?? FH: Ischemic heart disease?? GERD?? Hemorrhoids?? HLD (hyperlipidemia)?? HTN?? HTN (hypertension)?? Hyperlipids?? Hypothyroid?? Lumbar spinal stenosis?? Obese class I?? Obesity?? Rectal prolapse?? T MJ?? Education Materials Below is the list of Educational Leaflet Providered with your Discharge Instructions. Enoxaparin Prefilled Syringe?? Discharge Instructions: Caring for Your Tono-Crenshaw Drainage Tube?? Valuables and Belongings I fully understand and agree that [facility] accepts no responsibility for all my [...] Review of Valuable and Belonging List: With patient Possessions released to: no valuables in pre op Date for Pt to Sign Valuables/Belongings: 07/24/22 09:59:00 ?? Valuables & Belongings ?? Clothes Electronic devices Jewelry Monetary Items Personal devices Miscellaneous Medications (Valuables) Valuables at Bedside Jacket, Pants, Shirt, Shoes, Undergarments Cell phone ? Dentures, upper Other: hair clip Inhaler Valuables Sent Home ? Valuables Sent to Security ? Other Discharge Information ? Case Management Discharge Plan?? Discharge Plan?? Discharge Agency Information?? Discharge Level of Care at Discharge: Homehealth/VNA Agency [employer] #1: Intake Mode of Transportation Arranged: Other Service Categories #1: Physical Therapy, Senior Living Discharge VNA/Hospice/Home Care: [facility] Comments #1: A nurse will call you to arrange a home visit. ??Please call the agency with any questions. ?? Pulmonary Rehab Status?? Pulmonary Rehab Discharge Status?? Respiratory Rate: 24 br/min ? Common Emergency Awareness Tips IS [...] are strongly encouraged to quit. Please call [facility] at [phone] or [phone] ([phone]) or log in to [email or web address] for referrals to smoking cessation programs. ?? The National Suicide Prevention Hotline is available 17/01 if you or someone you know needs to find a reason to keep living. By calling 0-311-027-[employer] (5267) you'll be connected to a skilled, trained counselor at a crisis center in your area. INPATIENT DISCHARGE INSTRUCTIONS SIGNATURE PAGE TRENT PERDUE Location:[facility] Registration Date and Time:07/23/2022 11:30 EST Primary Care Physician: Karma High DO, I TRENT PERDUE, have received the above patient education materials/instructions and have verbalized understanding. If ambulance or transport services are being used I further acknowledge being givena choice of service. ?? If you need to contact me, please call me at this number: . Patient/Nail Cutter Name: Patient/Nail Cutter Signature: Relationship to Patient: Witness Name/Signature: Date: * Jaky Underwood: PERFORM Event Display: Patient Education Leaflets Authored Date: [id number] Enoxaparin Prefilled Syringe ?? [id number] Enoxaparin Prefilled Syringe Brands: Lovenox Uses This medicine is used for the following purposes: ??? heart attack ??? prevent blood clots ??? blood clot ?? Instructions This medicine is used by injecting it into the skin. Please ask your doctor, nurse or pharmacist for the correct places on your body where this medicine can be injected. Do not mix this medicine with other solutions. Always inspect the medicine before using. The liquid should be clear or light yellow. Check the medicine before each use. If the liquid medicine has any particles in it, appears discolored, or if the vial appears damaged, do not use it. Keep medicine at room temperature. Protect from light. Never use any medicine that has . Ask your doctor, nurse or pharmacist to show you how to use this medicine correctly. Change the location of the injection each time. Choose a location at least 1 inch from the last injection. Drug interactions can change how medicines work or increase risk for side effects. Tell your healthcare providers about all medicines taken. Include prescription and [id number] medicines, vitamins, and herbal medicines. Speak with your doctor or pharmacist before starting or stopping any medicine. Talk to your doctor before taking other medicines, including aspirins and ibuprofen containing products. Speak to your doctor about which medicines are safe to use while you are on this medicine. It is very important that you follow your doctor's instructions for all blood tests. ?? Cautions This medicine may cause serious bleeding from the stomach or bowels. Stop this medicine and call your doctor immediately if you see any signs of bleeding. Bleeding can cause pain in the stomach, vomiting up liquid that looks like coffee grounds, and red or dark tarry stools. There is an increased risk of bleeding while on this medicine, please tell your doctor or nurse if you notice any excessive bleeding or bruising. Do not use the medication any more than instructed. Tell the doctor or pharmacist if you are , planning to be , or . Ask your pharmacist how to properly throw away used needles or syringes. Do not share this medicine with anyone who has not been prescribed this medicine. ?? Side Effects The following is a list of some common side effects from this medicine. Please speak with your doctor about what you should do if you experience these or other side effects. ??? changes in the number of cells in the blood ??? unusual bruising or discoloration on skin ??? swelling of the legs, feet, and hands ??? fever ??? pain, redness, swelling near injection ??? nausea??? red, burning, or itchy skin Call your doctor or get medical help right away if you notice any of these more serious side effects: ??? increased risk of bleeding ??? confusion ??? nosebleeds ??? bloody or dark, tarry stools A few people may have an allergic reaction to this medicine. Symptoms can include difficulty breathing, skin rash, itching, swelling, or severe dizziness. If you notice any of these symptoms, seek medical help quickly. ?? Extra Please speak with your doctor, nurse, or pharmacist if you have any questions about this medicine. ?? [email or web address] IMPORTANT NOTE: This document tells you briefly how to take your medicine, but it does not tell youall there is to know about it. Your doctor or pharmacist may give you other documents about your medicine. Please talk to them if you have any questions. Always follow their advice. There is a more complete description of this medicine available in Ukrainian. Scan this code on your smartphone or tablet or use the web address below. You can also ask your pharmacist for a printout. If you have any questions, please ask your pharmacist. The display and use of this drug information is subject to Terms of Use. Copyright(c) 2021 [employer]. ?? [employer]. All rights reserved. This information is not intended as a substitute for professional medical care. Always follow your healthcare professional's instructions. ?? * Prosper GRIER, Jaky John: PERFORM Event Display: Patient Education Leaflets Authored Date: [id number] Discharge Instructions: Caring for Your Tono-Crenshaw Drainage Tube ?? [id number] Discharge Instructions: Caring for Your Tono-Crenshaw Drainage Tube Your healthcare provider discharged you with??a Tono-Crenshaw drainage tube. They commonly leave this drain within the abdomen and other cavities after surgery. It??helps drain and collect blood and body fluid after surgery. This can prevent swelling and reduces the risk for infection. The tube is held in place by a few stitches. It's covered with a bandage. Your healthcare provider will remove the drain when they determine you no longer need it. Home care ??? Don???t sleep on the same side as the tube. ??? Secure the tube and bag inside your clothing with a safety pin. This helps keep the tube from being pulled out. ??? Empty your drain at least twice a day. Empty it more often if the drain is full. Wash and dry your hands before emptying the drain. o Lift the opening on the drain. o Drain the fluid into a measuring cup. o Record the amount of fluid each time you empty the drain. Include the date and time it was emptied. Share this information with your healthcare provider on your next visit. o Squeeze the bulb with your hands until you hear air coming out of the bulb if your healthcare provider has instructed you to do so (sometimes the bulb is used as a reservoir without suction). Check with your healthcare provider about specific drain instructions. o Close the opening. ??? If you are to change the dressing around the tube, follow the directions your provider has given you. Some dressings may not need to be changed, but your provider will let you know. Here are some general steps to follow: o Wash your hands. o Remove the old bandage. o Wash your hands again. o Clean the skin around the incision and tube site as instructed. o Put a new bandage on the incision and tube site. Make the bandage large enough to cover the whole incision area. o Tape the bandage in place. ??? Talk with your healthcare provider about showering with the drain. You may need to keep the??bandage and tube site dry when you shower. Ask your [facility] team about the best way to do this. ?Stripping?? the tube helps keep blood clots from blocking the tube. Ask your healthcare team how often you should strip the tube. Stripping may not be needed, depending on where and why your healthcare provider placed the tube. It may even be dangerous in??some cases. o Hold the tubing where it leaves the skin, with one hand. This keeps it frompulling on the skin. o Pinch the tubing with the thumb and first finger of your other hand. o Slowly and firmly pull your thumb and first finger down the tubing. You may find it helpful to hold an alcohol swab between your fingers and the tube to lubricate the tubing. o If the pulling hurts or feels like the tube is coming out of the skin, stop. Begin again more gently. ?? Follow-up care Make a follow-up appointment as directed by our staff. ?? When to call your healthcare provider Call your healthcare provider right away if you have any of the following: ??? New or increased pain around the tube ??? Redness, swelling, or warmth around the incision or tube ??? Drainage that is foul-smelling ??? Vomiting ??? Fever of 100.4??F ( 38??C) or higher, or as directed by your provider??? Chills ??? Fluid leaking around the tube ??? Incision doesn't seem to be healing ??? Stitches become loose or the drain starts to come out ??? Tube falls out or breaks ??? Drainage that changes from light pink to dark red ??? Blood clots in the drainage bulb ??? A sudden increase or decrease inthe amount of drainage (over 30 mL) ?? Last Reviewed Date: 2021 ?? 4041-6652 [employer]. All rights reserved. This information is not intended as a substitute for professional medical care. Always follow your healthcare professional's instructions. ?? * Event Display: Adult Preadmission Health Questionnaire Authored Date: * Event Display: Cardiac Rhythm Strips Authored Date: * Event Display: Cardiac Rhythm Strips Authored Date: * Event Display: Cardiac Rhythm Strips Authored Date: Hospital Progress note * Steffi Moser RN: VERIFY, PERFORM, SIGN Event Display: Progress Note Hospital Authored Date: Patient: TRENT PERDUE Age: 67 years Sex: Female : 1955 Associated Diagnoses: None Author: Steffi Moser RN Findings Evaluation patient alert and oriented. remains acute care with continous o2 monitoring. AYALA and able to make needs known. patient has goal of o2 to be 88-92%. patient is on home o2. patient on 2L hearn but requires up to 5L with ambulation. patient visably and audibly short of breath, god help me . lungs are dim throughout. denies chest pain. +PP, no edema present. +BS, abdomen is distended but soft and nontender. patient has new illeostomy with pink moist soma patent with mushy/liquidy stool output. some stool present via rectum. ostomy nurse to see patient today for education with . surgical incision with aquacell remains CDI and JULIO with minimal serosang output. denies pain. patient to be di scharged today per colorectal. patient eager at expressing feelings and excited to go home. patientto be sent home with home o2. education provided regarding at home lovenox shots and JULIO drain emptying. see flowsheet for further documentation. all needs met at this time. . Discharge Information Case Management Discharge Plan : Case Management Discharge Plan Data 07/27/2022 14:56 EST Discharge Level of Care at Discharge Homehealth/VNA Discharge VNA/Hospice/Home Care [facility] Mode of Transportation Arranged Other Agency [employer] [facility]1 Intake Service Categories #1 Physical Therapy, Senior Living Service Comments #1 A nurse will call you to arrange a home visit. Please call the agency with any questions. Rehabilitation Discharge : Rehab Discharge Index 07/26/2022 13:24 EST Comments on treatment indicated 67F p/w full-thickness rectal prolapse s/p repair. Pt indicated to improve strength, endurance, gait tolerance, and stairs. Walker: distance >50 Distance pt will ambulate 100 Full chart review completed Yes Hospital course Hospital course Other findings Pt completed bed mob and transfers independently. O2 monitored throughout session which was at 90-94% on 5L, target 88%. Pt amb with RW up to 65' with 2 standing rest breaks for PLB. After 3 minute seated break Pt completed 2 steps with B UE support... Plan of care PT Gait training, Transfer training, Therapeutic exercise, Functional Activities, Balance training * Asad PONCE, Leisa: PERFORM, MODIFY Event Display: Progress Note Hospital Authored Date: Patient: ??TRENT PERDUE ? Age:??67 Years?Sex:??Female?:??1955?? Subjective Patient seen and examined at bedside this morning. No acute events overnight. Patient reports feeling well this morning and wants to go home. Did have some difficulty changing her ostomy appliance yesterday and would like more teaching today. Has been seen by Pulmonary RN and will go home on O2. Patient is tolerating diet, ostomy is functioning, and she is ambulating independently. Denies nausea,vomiting, fever, chills. Review of Systems Negative except as reviewed above. Physical Exam Vital Signs: Temperature?98 ?(06:31) Systolic Blood Pressure?121 ?(08:50) Diastolic Blood Pressure?75 ?(08:50) Pulse?84 ?(08:50) SpO2?96 ?(09:34) Respiratory Rate?18 ?(09:34) ? General: No acute distress, awake, alert, sitting comfortably on edge of bed. HEENT:??Normocephalic, atraumatic. Cardio: Regular rate. Lungs: Non-labored breathing on NC. Abdomen: Soft,??nt/nd. Ostomy appears healthy with stool in appliance. JULIO with serous output. Extremities: Full ROM, moving all limbs spontaneously. Psych:??Appropriate mood and affect. ?? Assessment/Plan Trent is a 67-year-old female with a history of rectal prolapse status post Delorme procedure. ??Herimmediate postop course was complicated by agitation requiring??benzodiazepines which caused the patient to be somnolent and requiring??increase supplemental oxygenation.?? Patient oxygen levels does improve??however was found to have recurrence of her rectal prolapse??along with??prolapse of the small bowel??to the perineum. ??Patient is now status post??exploratory laparotomy and??perineal rectosigmoid resection with coloanal anastomosis and a diverting loop ileostomy (07/24). Patient now withostomy function and working with manager urology for education. Diet advanced to ostomy diet and tolerating well. Seen by PT and recommending home with services. Seen by pulm RN and will titrate oxygenation requirements on discharge. Patient did have some difficulty with her ostomy appliance yesterday and will require more teaching today. Discharge pending readiness and ability to independently care for ostomy. ?? Plan: - Ostomy diet - CPT/Nebs - Pain meds PRN - PT consult - home with services - Pulm RN consult - home O2 - distance learning program coordinator educations - Monitor ostomy/drain output - OOB as tolerated ? Discussed with Dr. Shannon. Colorectal [id number] Intake and Output Intake and Output Results?? This visit (24 hour periods starting at 07:00 EST)? 07/28/22 *?? 07/27/22?? 07/26/22?? Total Summary?Intake mL?? 180?? 1,936.67?? 793.35?Output mL?? --?? 5,020?? 2,555?Fluid Balance ?? 180?? -3,083.33?? -1,761.65?? Intake (5)?Calcium Gluconate mL?? --?? 50?? --?Magnesium Sulfate mL?? --?? 50?? --?Oral Fluids mL?? 180?? 1,720?? 460?Potassium Chloride mL?? --?? 116.67?? 83.33?Sodium Phosphate mL?? --?? --?? 250.02?Total?? 180?? 1,936.67?? 793.35?? Output (4)?Colos/Ileostomy Vol mL?? --?? 800?? 625?Tono Crenshaw Abdomen mL?? --?? 120?? 130?Urine Catheter mL?? --?? --?? 200?Urine Voided mL?? --?? 4,100?? 1,600?Total?? --?? 5,020?? 2,555?? Counts (5)?Oral Fluids mL?? 180?? 1,720?? 460?Post void residual mL?? --?? --?? 60?Urine Catheter mL?? --?? --?? 200?Urine Count ?? --?? --?? 1?Urine Voided mL?? --?? 4,100?? 1,600? * This column has not completed the indicated time period.?? Labs Last 24 Hours BLOOD COUNT & DIFF ? Event Name?? Event Result?? Date/Time?? WBC 10.9 k/mm3 07/28/22 04:59:00 RBC 3.46 m/mm3??Low 07/28/22 04:59:00 Hgb 8.4 Gm/dL??Low 07/28/22 04:59:00 Hct 26.9 %??Low 07/28/22 04:59:00 MCV 77.7 femtoliters??Low 07/28/22 04:59:00 MCH 24.3 pg??Low 07/28/22 04:59:00 MCHC 31.2 g/dL??Low 07/28/22 04:59:00 Platelet Count 304 k/mm3 07/28/22 04:59:00 MPV 10.4 femtoliters 07/28/22 04:59:00 Nucleated RBC (Automated) 0 #/100 WBC'S 07/28/22 04:59:00 ? CHEM GENERAL ? Event Name?? Event Result?? Date/Time?? Sodium 139 mmol/L 07/28/22 04:59:00 Chloride 106 mmol/L 07/28/22 04:59:00 Bicarbonate Level 25 mmol/L 07/28/22 04:59:00 Anion Gap 8 07/28/22 04:59:00 Glucose Level 112 mg/dL??High 07/28/22 04:59:00 BUN 5 mg/dL??Low 07/28/22 04:59:00 Creatinine-Blood 0.6 mg/dL 07/28/22 04:59:00 Calcium, Ionized pH Corrected 1.18 mmol/L 07/28/22 04:59:00 Phosphorus 1.7 mg/dL??Low 07/28/22 04:59:00 Magnesium 1.9 mg/dL 07/28/22 04:59:00 ? * Shiva PONCE, Rex N: PERFORM Event Display: Progress Note Hospital Authored Date: Attending Attestation:??I have seen and evaluated this patient. ??I have discussed the case and itsmanagement with the resident and agree with the findings and plan as documented in the resident???snote. ? Tolerating diet. Ostomy teaching ongoing. Patient's at bedside and update given. ?? Rex Shannon MD, FACS, FASCRS ?? * Angelo Austin RN: PERFORM, SIGN, VERIFY Event Display: Progress Note Hospital Authored Date: Patient: TRENT PERDUE Age: 67 years Sex: Female : 1955 Associated Diagnoses: None Author: Angelo Austin RN Findings Problem Related to Alteration in Gastrointestinal : Alteration in Gastrointestinal Func/new 07/27/2022 20:00 EST Alteration in GI status Related to Abdominal Surgery, Colorectal Surgery, Other: rectal and SB prolapse s/p ex lap, resection, and ileostomy creation Goals & Outcomes, Gastrointestinal Establish a regular pattern of elimination for pt, Nutritional intake is adequate for metabolic needs, Pt will achieve normal/improved fluid balance, Pt will maintain adequate GI function appropriate for pt, Pt will maintain normal elimination patterns, Pt will resume/maintain adequate hemodynamic status, Pt will tolerate age appropriate diet prior to discharge, Ostomy will be functioning properly prior to D/C, Pt will correctly state/demonstrate applying ostomy pouch, Pt will correctly state/demonstrate emptying ostomy pouch, Pt will view ostomy, Pt will experience progressive wound healing, Pt will not experience s/s of infection prior to discharge, Other: Pain will be managed Interventions, Gastrointestinal Assess/monitor abdomen for distention, tenderness, Assess/monitor bowel pattern, bowel sounds, flatus, Assess/monitor color, quantity, quality, consistency of stoo, Assess/monitor pt for nausea, vomiting, Assess if pt tolerating diet Goals/Interventions, Gastrointestinal Yes Gastrointestinal, Problem Start 07/24/2022 21:00 Reviewed plan with, Gastrointestinal Patient Patient Progression, Gastrointestinal Pt progressing according to plan . Narrative/Incidental Patient has stated relatively low pain level, mildly tachypenic with activity currenly and on 5L nasal cannula have not attempted to wean. Ostomy beefy red and active. . Discharge Information Case Management Discharge Plan : Case Management Discharge Plan Data 07/27/2022 14:56 EST Discharge Level of Care at Discharge Homehealth/VNA Discharge VNA/Hospice/Home Care [facility] Mode of Transportation Arranged Other Agency [facility] #1 Intake Service Categories #1 Physical Therapy, Senior Living Service Comments #1 A nurse will call you to arrange a home visit. Please call the agency with any questions. Rehabilitation Discharge : Rehab Discharge Index 07/26/2022 13:24 EST Comments on treatment indicated 67F p/w full-thickness rectal prolapse s/p repair. Pt indicated to improve strength, endurance, gait tolerance, and stairs. Walker: distance >50 Distance pt will ambulate 100 Full chart review completed Yes Hospital course Hospital course Other findings Pt completed bed mob and transfers independently. O2 monitored throughout session which was at 90-94% on 5L, target 88%. Pt amb with RW up to 65' with 2 standing rest breaks for PLB. After 3 minute seated break Pt completed 2 steps with B UE support... Plan of care PT Gait training, Transfer training, Therapeutic exercise, Functional Activities, Balance training Portable XR Chest Views * BHSPowerscribe , CIS S: TRANSCRILAVON Chambers MD, Kwesi: ARCHANA Panchal MD, Troy A: SIGN Event Display: Result: Authored Date: [id number] Chest Portable Reason: Desaturating; Clinical Question(s): Pneumonia COMPARISON: CXR 07/23/2022, 10/23/2017 FINDINGS: LINES AND TUBES: Partially visualized spinal stimulator in place. LUNGS AND PLEURA: Improved airspace opacities in the right lower lung, with a residual patchy opacity. The left lung is clear. Normal pulmonary vascularity. No pleural effusion. No pneumothorax. HEART, MEDIASTINUM AND QASIM: Heart is normal in size. Normal mediastinal and hilar contour. BONES AND SOFT TISSUES: No acute abnormality. IMPRESSION: Improving right basilar opacities. I have personally reviewed the images and I agree with this report. WSN: [id number] Ordering Physician: Greer Madison Dictated By: Troy Panchal MD Dictated Date/Time: 07/25/22 11:11 p Reviewed By: Kwesi Chambers MD Signed By: Kwesi Chambers MD Signed Date/Time: 07/25/22 11:16 pm Transcribed By: ART Transcribed Date/Time: 07/25/22 11:09 pm * BHSPowerscrilavon , SONA S: TRANSCRIBE Daniel Burt MD: VERIFY Event Display: Result: Authored Date: [id number] Chest Portable Reason: Other:; Clinical Question(s): Other: / Other: COMPARISON: 10/23/2017 FINDINGS: LINES AND TUBES: Partially visualized spinal stability. LUNGS AND PLEURA: Right lower lobe and to a lesser extent left lower lobe airspace opacity. The central pulmonary vasculature is prominent and indistinct. No pleural effusion. No pneumothorax. HEART, MEDIASTINUM AND QASIM: Heart is normal in size. Normal mediastinal and hilar contour. BONES AND SOFT TISSUES: No acute abnormality. IMPRESSION: 1. Pulmonary vascular congestion. 2. Right worse than left lower lobe airspace opacity could be due to atelectasis, pneumonia, or aspiration. WSN: [id number] Ordering Physician: Leisa Kamara Dictated By: Daniel Burt MD Dictated Date/Time: 07/23/22 8:03 pm Reviewed By: Daniel Burt MD Signed By: Daniel Burt MD Signed Date/Time: 07/23/22 8:03 pm Transcribed By: ART Transcribed Date/Time: 07/23/22 8:02 pm Patient Care team information Care Team Personnel Name: Meghan Thapa RN Position: S RN Member Role: Primary Care Nurse Name: Mariana London RN Position: S RN Member Role: Primary Care Nurse Name: Karma High DO Position: [facility] Physician (General Medicine) Member Role: PCP Address: Address: [address] [place] [address]- [place] Name: Josh Fletcher RN Position: [facility] RN Member Role: Primary Care Nurse Name: Leyla Chua RN Position: [facility] RN Member Role: Primary Care Nurse Care Team Related Persons Name: ABE CAST Address: [facility] [address] [place] [address] Name: SAUMYA MAX Address: [place] [address]
--- OUTSIDE RECORDS SUMMARY | 2023-07-06 09:33 | XMS_ITS | Continuity of Care Document ---
Author Name Unknown Organization [facility] ter Address [address] [place] [address]- Care Team Providers Care Information Assurance Engineer Name Role Phone Israel Panda MD Primary Care Physician Encounter [facility] Date(s): 08/01/20 - 09/17/[address] [address] Attending Physician: Alberto Power MD Admitting Physician: Alberto Power MD Allergies, Adverse Reactions, Alerts Substance Reaction Severity Status codeine vomiting Active Contrast Dye rash Active Medications Advair Diskus 250 mcg-50 mcg inhalation powder 1, puffs, Inhalation, 2 times a day, 0, 0, 07/03/08 13:56:43, Print ANTIONE Number, [id number], Constant Indicator Start Date: 07/03/08 Status: Ordered [...] recent to oldest [Reference Range]: 1 Height 162.56 cm (08/12/20 4:43 PM) Weight 82.73 kg (08/12/20 4:43 PM) Body Mass Index [18.5-24.99] 31.31 *>HHI* (08/12/20 4:43 PM) Dry Weight 82.73 kg (08/12/20 4:43 PM) Weight Obtained Via Patient/family state d (08/12/20 4:43 PM) Social History Social History Type Response Smoking Status Current every day alli sparrow entered on: 10/22/17 Sex
--- OUTSIDE RECORDS SUMMARY | 2023-07-06 09:33 | XMS_ITS | Continuity of Care Document ---
Author Name Unknown Organization [facility] Address [address] [place] [address] [address] [place] [address]- Care Team Providers Care V Belt Mold Assembler And Curer Name Role Phone Karma High DO Primary Care Nicole valentine Encounter [facility] Date(s): 10/08/22 - 11/07/22 [facility] [address] [place], [place] [address] Allergies, Adverse Reactions, Alerts Substance Reaction Severity [...] influenza virus vaccine, inactivated 04/19/14 Kenny rded [id number] 12y+ bivalent booster vax 04/18/22 Recorded SARS-CoV-2 [...] Start Date: 07/29/22 Status: Ordered Coloplast bags #00629 Coloplast bags #14247, See Instructions, # 20 each, Refills 11, [...] 0 Refills, Maintenance, 07/28/22 13:18:00 EST, Patch, [facility], Partial fill upon patient [...] capsule, 0 Refills, Maintenance, 08/04/22 7:21:00 EST, [facility], Partial fill upon patient request... Start [...] 0 Refills, Maintenance, 07/28/22 13:17:00 EST, Tablet, [facility], Partial fill upon patient request if [...] Care Nurse Name: Karma High DO Position: [facility] Physician (General Medicine) Member Role: PCP Address: Address: [address] [place] [address]- Name: Leyla Chua RN Position: S RN Member Role: Primary Care Nurse Name: Naya Ocampo RN Position: S RN Member Role: Primary Care Nurse Care Team Related Persons Name: ABE CAST Address: home [address] [place] [id number] Name: SAUMYA MAX Address: [place] [address]
--- OUTSIDE RECORDS SUMMARY | 2023-07-06 09:33 | XMS_ITS | Continuity of Care Document ---
Author Name Unknown Organization [facility] Address [address] [place] [address] [address] [place] [address]- Care Team Providers Care Glove Cuffer Name Role Phone Cameron Karma Anne DO Primary Care Nicole valentine Encounter [facility] Date(s): 08/23/22 - 09/22/[address] [place] [address]- Attending Physician: Humphrey Tapia Admitting Physician: AdmHumphrey [...] influenza virus vaccine, inactivated 04/19/14 Kenny rded [id number] 12y+ bivalent booster vax 04/18/22 Recorded SARS-CoV-2 [...] PRN, Refills 0, Maintenance, Pain , Mild, 02/01/23 11:13:00 EST Start Date: 07/28/22 Status: Ordered amLODIPine 10 mg oral tablet 1 tablet = 10 mg, By Mouth, Daily, # 30 tablet, 0 Refills, Maintenance, 07/29/22 18:54:00 EST, Tablet, Partial fill upon patient request if the prescription is for a schedule II opioid drug. Start Date: 07/29/22 Status: Ordered Coloplast bags #52501 Coloplast bags #33435, See Instructions, # 20 each, Refills 11, [...] 0 Refills, Maintenance, 07/28/22 13:18:00 EST, Patch, [facility], Partial fill upon patient [...] capsule, 0 Refills, Maintenance, 08/04/22 7:21:00 EST, [facility], Partial fill upon patient request... [...] 0 Refills, Maintenance, 07/28/22 13:17:00 EST, Tablet, [facility], Partial fill [...] days entered on: 07/20/22 Sex Note * Event Display: Bone Density, Non-BH Authored Date: [id number] Patient Care team information Care Team Personnel Name: Geetha Jurado RN Position: S RN Member Role: Primary Care Nurse Name: Meghan Thapa RN Position: S RN Member Role: Primary Care Nurse Name: Kristin Sands RN Position: S RN Member Role: Primary Care Nurse Name: Mariana London RN Position: S RN Member Role: Primary Care Nurse Name: Karma High DO Position: [facility] Physician (General Medicine) Member Role: PCP Address: Address: [address] [place] [id number] Name: Leyla Chua RN Position: [facility] RN Member Role: Primary Care Nurse Name: Naya Ocampo RN Position: [facility] RN Member Role: Primary Care Nurse Care Team Related Persons Name: ABE CAST Address: [address] [address] Name: SAUMYA MAX Address: [place] [address]
--- OUTSIDE RECORDS SUMMARY | 2023-07-06 09:33 | XMS_ITS | Continuity of Care Document ---
Author Name Unknown Organization [facility] Address [address] [place] [address] [address] [place] [address]- Care Team Providers Care Seed Cleaner Operator Name Role Phone WilfredofinaKarma Grant DO Primary Care Nicole valentine Encounter [facility] Date(s): 02/15/23 - 03/17/23 [facility] [address] [place], [place] [address] Allergies, Adverse Reactions, Alerts Substance [...] influenza virus vaccine, inactivated 04/19/14 Kenny rded [id number] 12y+ bivalent booster vax 04/18/22 Recorded SARS-CoV-2 [...] Start Date: 07/29/22 Status: Ordered Coloplast bags #86567 Coloplast bags #69440, See Instructions, # 20 each, Refills 11, [...] Care Nurse Name: Karma High DO Position: [facility] Physician - Primary Care Member Role: PCP Address: Address: [address] [place] [address] Name: Cady Dove RN Position: S RN Member Role: Primary Care Nurse Name: Elena Savage RN Position: S RN Member Role: Primary Care Nurse Name: Leyla Chua RN Position: S RN Member Role: Primary Care Nurse Name: Naya Ocampo RN Position: S RN Member Role: Primary Care Nurse Care Team Related Persons Name: ABE CAST Address: [address] [address] Name: SAUMYA MAX Address: [place] [address]
--- NOTE | 2023-07-06 10:37 | AM.OFFWIN_ITS ---
Intake Vital Signs 07/06/23 10:40 Height 5 ft 3 in Weight 171 lb BMI 30.3 BP 124/62 Blood Pressure Location Rt brachial Position Sitting Pulse 72 Pulse Source Pulse Oximeter Temp 97.9 F Temp Source Oral Pulse Oximetry (%) 95 Oxygen Delivery Method Room Air Intake Visit Reasons: EP, back pain, hard time catching breath Intake Note: Pt is here c/o back pain and SOB for the past week. Patient Tobacco Use Status: Former Tobacco user Allergies codeine Allergy (Verified 07/06/23 10:39) Vomiting Iodinated Contrast Media Allergy (Verified 07/06/23 10:39) unknown Do you need a note to return to daycare/school/sports/work: No HPI HPI Comments History of Present Illness Details Patient is a 68yo F who presents with for back pain and dyspnea She has chronic back pain with surgery hx in past She has hx of chronic COPD but said usual O2 sat is 97 She has been experiencing back pain with dyspnea x 3 weeks Saw surgeon for back who said no change in management or them She can not obtained chest xray from assistant activities director until summer do to insurance Has been using prescription breathing tx without relief + SOB at rest and with exertion Back pain worsened with deep breath, movement, palpation, cough No current cough, congestion, ST, fever, chills, leg swelling PFSH Medical History (Updated 07/06/23 @ 10:53 by Daniela Tong PA-C) COPD (chronic obstructive pulmonary disease) Surgical History (Updated 05/13/20 @ 12:47 by Cady Clemens CMA) Status post thyroidectomy Social History (Updated 05/13/20 @ 12:49 by Cady Clemens CMA) Patient Tobacco Use Status: Former Tobacco user Current occupational status: unemployed Current occupation: Right Handed Review of Systems Const Reports body aches, Denies chills, Denies fatigue and Denies fever(s) Eyes Denies blurry vision ENT Denies otalgia, Denies nasal discharge and Denies sore throat Card Denies chest pain, Denies rapid heart rate, Denies leg edema and Reports dyspnea Resp Denies change in phlegm color, Denies chest congestion, Denies cough, Reports dyspnea and Denies wheezing GI Denies abdominal pain Endo Denies fatigue Aller/Immun Denies wheezing Physical Exam Vital Signs: Last Vital Signs Temp 97.9 F 07/06/23 10:40 Pulse 72 07/06/23 10:40 BP 124/62 07/06/23 10:40 Pulse Ox 95 07/06/23 10:40 Oxygen Delivery Method Room Air 07/06/23 10:40 BMI result Body Mass Index 30.3 General: Non-toxic, NAD. Speaking full sentences. Skin: Warm dry throughout. No posterior back or flank ecchymosis or rash Eye: EOMI HENT: Airway patent. Uvula midline. No pharyngeal erythema or edema. No STRIP CUTTING MACHINE OPERATOR. Bilateral canals clear. TM non-erythematous, non-bulging. No TM perforation or hemotympanum noted. Respiratory: CTA bilaterally. No wheezes, rales or rhonchi Cardiac: RRR. No murmur MSK: Full ROM extremities. + midline thoracic tenderness as well as bilateral thoracic paravertebral tenderness to palpation. Neurology: A/O. No aphasia or facial droop. Gait without abnormality Psych: Good mood and affect Assessment & Plan Assessment & Plan (1) Dyspnea: Code(s): R06.00 - Dyspnea, unspecified Qualifiers: Dyspnea type: shortness of breath Qualified Code(s): R06.02 - Shortness of breath Plan: Patient seen and evaluated. Ambulating O2 sat in office was 95% and remained constant. HR did not increase over 75 with ambulation Chest xray: I viewed as negative acute issue. She has + degenerative changed to the spine. Unable to compare to previous imaging Discussed need to f/u with pulmonology Prednisone (take with food avoid nsaids and alcohol) ER s/s discussed with pt and significant other and she is aware; like CP, worsening SOB, intractable back pain etc) Patient gave verbal understanding and had no additional questions or concerns at time of discharge All questions answered Orders: Orders XR chest 2V Today R06.00 - Dyspnea, unspecified Medications: New prednisone 40 mg (2 x 20 mg) PO DAILY 4 days 8 tabs 0RF Coding Level of Care Code Est Pt Level 3 (82494) Diagnoses Shortness of breath R06.02 Dyspnea type: shortness of breath
[2023-07-06 10:40] VITALS: BP 124/62; PULSE 72; TEMP 36.6; O2SAT 95; BMI 30.3
== END 2023-07-06 12:39 | disposition home or self-care (01) ==
PROVIDERS: PCP Internal Medicine; Visit Provider Physician Assistant
DX: R06.02 Shortness of breath (principal)
CPT/HCPCS: 99213

== ENCOUNTER 2023-07-06 10:54 | Outpatient (REF) | payer MEDICARE, SELFPAY ==
--- NOTE | ~2023-07-06 | XR_ITS ---
EXAMINATION: XR CHEST CLINICAL INFORMATION: Dyspnea COMPARISON: Chest CT from 11/29/2022 TECHNIQUE: 2 views of the chest were obtained. FINDINGS: Lungs are well expanded and this patient with a history of emphysematous disease. A few thin linear opacities of minimal atelectasis or scarring are present the bases. No pulmonary edema, consolidation or pleural effusion. No pneumothorax. Cardiac silhouette is normal in size. Chronic mild pleural thickening/scarring at apices. T8 vertebral body compression fracture results in approximately 40% anterior height loss. Although the fracture is not acute, it is new since 11/29/2022. The electrodes of a spinal similar project over the posterior thoracic spinal canal at T9-T10. Degenerative disc disease is severe at L2-L3 and there is chronic grade 1 retrolisthesis at L2-L3. The lumbar spinal fusion hardware is excluded from the [id number]. XR/XR chest 2V IMPRESSION: No evidence of pneumonia or congestive heart failure. No acute pulmonary disease.
== END 2023-07-06 10:55 | disposition home or self-care (01) ==
LOC: HO.HMGCX 10:54
PROVIDERS: Visit Provider Physician Assistant
DX: R06.00 Dyspnea, unspecified (principal)
CPT/HCPCS: 71046

== ENCOUNTER 2023-12-08 08:21 | Outpatient (AMB) | payer MEDICARE, SELFPAY ==
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
[2023-12-08 08:34] VITALS: BP 142/94; PULSE 73; RESP 16; O2SAT 96; BMI 29.3
== END 2023-12-08 08:53 | disposition home or self-care (01) ==
PROVIDERS: PCP Internal Medicine; Visit Provider Anesthesiology
DX: M51.36 Other intervertebral disc degeneration, lumbar region (principal); G89.4 Chronic pain syndrome; M96.1 Postlaminectomy syndrome, not elsewhere classified; T85.192A Other mechanical complication of implanted electronic neurostimulator of spinal cord electrode (lead), initial encounter
CPT/HCPCS: 99204

== ENCOUNTER 2023-12-08 08:21 | Outpatient (REF) | payer MEDICARE, SELFPAY ==
--- NOTE | ~2023-12-08 | XR_ITS ---
EXAMINATION: XR THORACIC SPINE, 3 VIEWS XR LUMBAR SPINE, 3 VIEWS CLINICAL INFORMATION: Postlaminectomy syndrome COMPARISON: None available. TECHNIQUE: 3 views of the thoracic spine 3 views of the lumbar spine FINDINGS: 5 nonrib-bearing lumbar-type vertebral bodies. Status post posterior spinal fusion of L3-L4 with bilateral transpedicular screws and interconnecting rods and disc spacer at L4-L5. Spinal hardware is grossly intact. Anterior wedge compression deformity of T8, chronicity indeterminate. Grade 1 retrolisthesis of L2 on L3. Multilevel degenerative changes with disc space narrowing, endplate process, osteophyte from it, and facet arthropathy. Vertebral body heights and disc spaces are otherwise maintained. Posterior elements are intact. Paraspinal soft tissues are unremarkable. Spinal nerve stimulator coursing cranially entering at the level of T10. Visualized portions of the chest and abdomen are unremarkable. XR/XR lumbar spine 2-3V IMPRESSION: 1. Status post posterior spinal fusion of L3-L4 with bilateral transpedicular screws and interconnecting rods and disc spacer at L4-L5. Spinal hardware is grossly intact. 2. Anterior wedge compression deformity of T8, chronicity indeterminate. 3. Grade 1 retrolisthesis of L2 on L3. 4. Multilevel degenerative changes.
--- NOTE | ~2023-12-08 | XR_ITS ---
EXAMINATION: XR THORACIC SPINE, 3 VIEWS XR LUMBAR SPINE, 3 VIEWS CLINICAL INFORMATION: Postlaminectomy syndrome COMPARISON: None available. TECHNIQUE: 3 views of the thoracic spine 3 views of the lumbar spine FINDINGS: 5 nonrib-bearing lumbar-type vertebral bodies. Status post posterior spinal fusion of L3-L4 with bilateral transpedicular screws and interconnecting rods and disc spacer at L4-L5. Spinal hardware is grossly intact. Anterior wedge compression deformity of T8, chronicity indeterminate. Grade 1 retrolisthesis of L2 on L3. Multilevel degenerative changes with disc space narrowing, endplate process, osteophyte from it, and facet arthropathy. Vertebral body heights and disc spaces are otherwise maintained. Posterior elements are intact. Paraspinal soft tissues are unremarkable. Spinal nerve stimulator coursing cranially entering at the level of T10. Visualized portions of the chest and abdomen are unremarkable. XR/XR thoracic spine 2V IMPRESSION: 1. Status post posterior spinal fusion of L3-L4 with bilateral transpedicular screws and interconnecting rods and disc spacer at L4-L5. Spinal hardware is grossly intact. 2. Anterior wedge compression deformity of T8, chronicity indeterminate. 3. Grade 1 retrolisthesis of L2 on L3. 4. Multilevel degenerative changes.
== END 2023-12-08 08:22 | disposition home or self-care (01) ==
LOC: HO.XRAY 08:21
PROVIDERS: PCP Internal Medicine; Visit Provider Anesthesiology
DX: M96.1 Postlaminectomy syndrome, not elsewhere classified (principal); G89.4 Chronic pain syndrome; M51.36 Other intervertebral disc degeneration, lumbar region; T85.192A Other mechanical complication of implanted electronic neurostimulator of spinal cord electrode (lead), initial encounter
CPT/HCPCS: 72070; 72100; 99202

== ENCOUNTER 2023-12-15 09:05 | Outpatient (AMB) | payer MEDICARE, SELFPAY ==
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
[2023-12-15 09:37] VITALS: BP 150/72; PULSE 70; RESP 14; O2SAT 96; BMI 29.3
== END 2023-12-15 09:55 | disposition home or self-care (01) ==
PROVIDERS: PCP Internal Medicine; Visit Provider Anesthesiology
DX: G89.4 Chronic pain syndrome (principal); M51.36 Other intervertebral disc degeneration, lumbar region; M96.1 Postlaminectomy syndrome, not elsewhere classified; T85.192A Other mechanical complication of implanted electronic neurostimulator of spinal cord electrode (lead), initial encounter
CPT/HCPCS: 99214

== ENCOUNTER → 2023-12-15 09:05 | Outpatient (BNVA) | payer MEDICARE, SELFPAY | PROVIDERS: PCP Internal Medicine; Visit Provider Anesthesiology | DX: M51.36 Other intervertebral disc degeneration, lumbar region (principal); M96.1 Postlaminectomy syndrome, not elsewhere classified; T85.192D Other mechanical complication of implanted electronic neurostimulator of spinal cord electrode (lead), subsequent encounter; G89.4 Chronic pain syndrome | CPT/HCPCS: 99212 ==